=== PATIENT | female | born 1960 | race Caucasian/White ===

== ENCOUNTER 2021-06-17 15:36 | Inpatient (IN) | payer OTHER, MEDICAID, SELFPAY ==
[~2021-06-17] VITALS: Ht 137.2 cm; Wt 59.0 kg
[~2021-06-17 15:36] MED LIST: ASPI-1822 PO; ATOR20TA40 PO; LISI5TAB24 PO; Metoprolol Tartrate PO; NITR2OIN30 TP; ONDA2SOL80 IVP; SYN.1 PO; VITA1CAP PO
[2021-06-17 15:39] VITALS: BP 94/58
[2021-06-17 15:43] VITALS: BP 61/44
[2021-06-17] MEDS ORDERED: NACL 0.9% 1,000 ML IV ONE (16:40)
[2021-06-17 17:54] LABS: HEMATOCRIT 32.8 % (36-48); HEMOGLOBIN 10.7 g/dL (12.0-16.0); MEAN CORPUSCULAR HEMOGLOBIN 33 pg (27-31); MEAN CORPUSCULAR HGB CONC 33 g/dL (33-37); MEAN CORPUSCULAR VOLUME 100.5 fL (80-94); PLATELET COUNT (AUTO) 212 K/uL (140-450); RED BLOOD CELL COUNT(AUTO) 3.27 MIL/uL (4.20-5.40); RED CELL DISTRIBUTION WIDTH 16.5 % (11.6-13.7)
[2021-06-17 17:56] LABS: WHITE BLOOD COUNT (AUTO) 31.6 K/uL (4.8-10.8)
[2021-06-17] MEDS ORDERED: VANCOMYCIN 1,000 MG in DEXTROSE 5% 250 ML IV ONE (18:10)
[2021-06-17] MEDS ORDERED: CEFEPIME 1,000 MG in DEXTROSE 5% 50 ML IV ONE (18:10)
[2021-06-17 18:14] LABS: CARBON DIOXIDE 27.5 mmol/L (21-32); CREATININE 1.8 mg/dL (0.6-1.3); POTASSIUM 4.5 mmol/L (3.5-5.1); TOTAL BILIRUBIN 0.3 mg/dL (0.0-1.0)
--- NOTE | 2021-06-17 18:29 | NUR ---
jessica swabbed and given to ena madsen in lab
[2021-06-17] MEDS ORDERED: CEFEPIME 1,000 MG VIAL ONE (18:30)
[2021-06-17 18:33] LABS: LYMPHOCYTES % (MANUAL) 3 % (20-46); METAMYELOCYTES % 1 % (0-0); MONOCYTES % (MANUAL) 2 % (5-12); PROMYELOCYTES % 1 % (0-0)
--- NOTE | 2021-06-17 18:45 | NUR ---
PT BIB ALS RUN C/O ALOC AND LOW BP FROM [facility]. PT TRACH DEPENDENT, PLACED ON VENT BY RT. IV INSERTED TO RIGHT #20GUAGE FLUIDS INFUSING. PT REMAINS HYPOTENSIVE.
[2021-06-17 19:14] VITALS: BP 100/57
--- NOTE | 2021-06-17 19:23 | NUR ---
patient suctioned- tolerated well. patient on safety measures, attached to monitor and will continue to monitor patient.
[2021-06-17] MEDS ORDERED: VANCOMYCIN 1,000 MG VIAL ONE (19:26)
[2021-06-17] MEDS ORDERED: NACL 0.9% 1,000 ML IV SCH ×2 (21:20)
[2021-06-17] MEDS ORDERED: NOREPINEPHRINE 4 MG/4 ML VIAL IV ONE (21:53)
--- NOTE | 2021-06-17 21:58 | NUR ---
Called facility [facility]-- no answer at this time
--- NOTE | 2021-06-17 22:23 | NUR ---
Called marcel alas the conservator-- no answer at this time
--- NOTE | 2021-06-17 22:24 | NUR ---
called Melba galeano- unable to give consent to sign the central line. has to be 2 RN or 2 MD verfications.
[2021-06-17] MEDS ORDERED: MORPHINE SULFATE 2 MG/ML SYR IVP PRN (22:30)
[2021-06-17] MEDS ORDERED: LORazepam 0.5 MG TAB GT PRN (22:30)
--- NOTE | 2021-06-18 01:26 | NUR ---
Patient appears to be resting comfortably in bed- semi fowlers, eyes closed, and medications running. Vital Signs within normal limits. Respirations even and unlabored. no signs of distress noted. Safety measures are in place, attached to monitor and will continue to monitor patient.
[2021-06-18] MEDS ORDERED: NOREPINEPHRINE 4 MG/4 ML VIAL IV ONE ×6 (03:24→21:23)
[2021-06-18 05:31] VITALS: BP 130/53
--- NOTE | 2021-06-18 07:09 | NUR ---
REPOSITIONED PATIENT, CHANGED DIAPER, AND CHANGED SHEETS. NO WOUNDS PRESENT AT THIS TIME. SOME REDNESS ON THE CHEST NOTED BUT NO OPEN WOUNDS. PATIENT TOLERATED WELL. SAFETY MEASURES IN PLACE, ATTACHED TO THE MONITOR AND WILL CONTINUE TO MONITOR PATIENT.
--- NOTE | 2021-06-18 07:11 | NUR ---
Dr. Epperson at bedside
[2021-06-18] MEDS ORDERED: LORazepam 2 MG/ML VIAL ONE (07:21)
[2021-06-18] MEDS ORDERED: LORazepam 2 MG/ML VIAL IVP ONE (07:25)
--- NOTE | 2021-06-18 07:35 | NUR ---
Pt report given to NAVIN PINO AND YVES PINO. Transfer of care at this time.
--- NOTE | 2021-06-18 07:37 | NUR ---
RECEIVED REPORT FROM LILIANA, ASSISTANT TEACHER PRIMARY OF ARE AT THIS TIME.
[2021-06-18] MEDS ORDERED: PIPERACILLIN/TAZOBACTAM 3.375 GM VIAL IV ONE ×3 (08:04→21:13)
[2021-06-18] MEDS: NOREPINEPHRINE 4 MG in DEXTROSE 5% 250 ML IV PRN (08:10)
--- NOTE | 2021-06-18 08:15 | NUR ---
refer to spreadsheet for patient VS
[2021-06-18] MEDS: PIPERACILLIN/TAZOBACTAM 3.375 GM in DEXTROSE 5% 50 ML IV SCH ×3 (08:28→21:32)
[2021-06-18 09:08] LABS: HEMATOCRIT 31.5 % (36-48); HEMOGLOBIN 10.3 g/dL (12.0-16.0); MEAN CORPUSCULAR HEMOGLOBIN 32 pg (27-31); MEAN CORPUSCULAR HGB CONC 33 g/dL (33-37); MEAN CORPUSCULAR VOLUME 99.1 fL (80-94); PLATELET COUNT (AUTO) 232 K/uL (140-450); RED BLOOD CELL COUNT(AUTO) 3.18 MIL/uL (4.20-5.40); RED CELL DISTRIBUTION WIDTH 16.3 % (11.6-13.7)
[2021-06-18 09:37] LABS: ANION GAP 11.5 (8-16); CARBON DIOXIDE 25.5 mmol/L (21-32)
[2021-06-18 09:52] LABS: WHITE BLOOD COUNT (AUTO) 35.6 K/uL (4.8-10.8)
[2021-06-18 09:53] LABS: LYMPHOCYTES % (MANUAL) 3 % (20-46); MONOCYTES % (MANUAL) 3 % (5-12)
--- NOTE | 2021-06-18 10:04 | NUR ---
RT AT PT BEDSIDE.
--- NOTE | 2021-06-18 12:11 | NUR ---
SPOKE WITH DR. LOMBARDI FOR PT UPDATES.
[2021-06-18] MEDS ORDERED: MAG SULF 2000 MG/WATER PREMIX 50 ML IV PRN (12:20)
[2021-06-18] MEDS ORDERED: ONDANSETRON 4 MG/2 ML VIAL IVP PRN (12:20)
[2021-06-18] MEDS ORDERED: ONDANSETRON 4 MG/2 ML VIAL IM/IVP PRN (12:20)
[2021-06-18] MEDS ORDERED: DOCUSATE SODIUM 100 MG GELCAP PO PRN (12:20)
[2021-06-18] MEDS ORDERED: ZOLPIDEM 5 MG TAB PO PRN (12:20)
[2021-06-18] MEDS ORDERED: HYDROcodone/APAP 5/325 MG 1 TAB TAB PO PRN (12:20)
[2021-06-18] MEDS ORDERED: ACETAMINOPHEN 325 MG TAB PO PRN (12:20)
[2021-06-18] MEDS ORDERED: POTASSIUM CHLORIDE 10 MEQ TABER PO PRN (12:20)
[2021-06-18] MEDS: NACL 0.9% 1,000 ML IV SCH (14:02)
[2021-06-18] MEDS: NITROGLYCERIN 2% 1 GM PKT TP SCH ×2 (14:18→21:33)
--- NOTE | 2021-06-18 15:27 | NUR ---
PATIENT HAS BEEN SCREENED AND CATEGORIZED HIGH NUTRITION RISK. PATIENT WILL BE SEEN WITHIN 1-2 DAYS OF ADMISSION. / [facility] [address]
[2021-06-18 19:36] LABS: CHOL/HDL RATIO 2.3 (1-4.5)
[2021-06-18] MEDS ORDERED: METOPROLOL TARTRATE 12.5 MG PO SCH (21:00)
[2021-06-18] MEDS: METOPROLOL 25 MG TAB PO SCH (21:00)
--- NOTE | 2021-06-18 21:46 | NUR ---
GAVE REPORT TO ALVAREZ GRAJEDA. TRANSFER OF CARE AT THIS TIME.
--- NOTE | 2021-06-18 22:04 | NUR ---
ASSUMED CARE AT THIS TIME.
--- NOTE | 2021-06-18 22:46 | NUR ---
PT SOILED AND PERICARE PROVIDED. PT CLEANED AND LINEN CHANGED.
--- NOTE | 2021-06-19 00:19 | NUR ---
ORAL CARE PROVIDED.
[2021-06-19] MEDS ORDERED: NOREPINEPHRINE 4 MG/4 ML VIAL IV ONE ×3 (01:12→04:48)
[2021-06-19] MEDS: NOREPINEPHRINE 4 MG in DEXTROSE 5% 250 ML IV PRN ×2 (01:25→18:51)
--- NOTE | 2021-06-19 02:28 | NUR ---
see IV spreadsheet for vitals trend
--- NOTE | 2021-06-19 02:28 | NUR ---
gtube dressing soiled. changed at this time.
--- NOTE | 2021-06-19 03:21 | NUR ---
PT SOILED AND PERICARE PROVIDED. PT CLEANED AND BRIEF CHANGED.
[2021-06-19 05:00] VITALS: BP 92/65
[2021-06-19] MEDS ORDERED: PIPERACILLIN/TAZOBACTAM 3.375 GM VIAL IV ONE ×3 (05:00→22:54)
[2021-06-19] MEDS: PIPERACILLIN/TAZOBACTAM 3.375 GM in DEXTROSE 5% 50 ML IV SCH ×3 (05:02→23:32)
[2021-06-19] MEDS: NITROGLYCERIN 2% 1 GM PKT TP SCH ×3 (05:02→23:34)
[2021-06-19] MEDS: NACL 0.9% 1,000 ML IV SCH ×2 (05:03→23:35)
--- NOTE | 2021-06-19 06:05 | NUR ---
Patient repositioned for comfort. Review IV spreadsheet for vitals trend
[2021-06-19] MEDS ORDERED: LEVOTHYROXINE 0.1 MG TAB PO SCH (06:30)
--- NOTE | 2021-06-19 07:24 | NUR ---
REPORT GIVEN TO ALVAREZ HOLDEN. TRANSFER OF CARE
[2021-06-19] MEDS ORDERED: LEVOTHYROXINE 0.05 MG TAB ONE (07:59)
--- NOTE | 2021-06-19 08:00 | NUR ---
ALL MEDICATIONS TO BED CHANGED TO GT AT THIS TIME PER MD LOMBARDI.
[2021-06-19 08:11] VITALS: BP 116/68
[2021-06-19 08:35] LABS: ANION GAP 11.7 (8-16); CARBON DIOXIDE 22.7 mmol/L (21-32); CREATININE 0.8 mg/dL (0.6-1.3); POTASSIUM 3.4 mmol/L (3.5-5.1)
[2021-06-19 08:38] LABS: MAGNESIUM 1.7 mg/dL (1.8-2.4)
[2021-06-19] MEDS ORDERED: lisinopriL 5 MG TAB PO SCH (09:00)
[2021-06-19] MEDS ORDERED: VITAMIN B COMPLEX PO SCH (09:00)
[2021-06-19] MEDS ORDERED: ATORVASTATIN 20 MG TAB PO SCH (09:00)
[2021-06-19] MEDS ORDERED: VIT-B COMP/VIT-C/FOLIC ACID 1 TAB PO SCH (09:00)
[2021-06-19] MEDS ORDERED: ASPIRIN 81 MG TAB.CHEW PO SCH (09:00)
[2021-06-19 09:02] LABS: BASOPHILS # (AUTO) 0.1 K/uL (0.00-0.22); BASOPHILS % (AUTO) 0.3 % (0.0-2.0); EOSINOPHILS % (AUTO) 0.1 % (0.0-4.0); HEMATOCRIT 29.8 % (36-48); HEMOGLOBIN 9.8 g/dL (12.0-16.0); LYMPHOCYTES # (AUTO) 1.2 K/uL (2.5-16.5); LYMPHOCYTES % (AUTO) 4.6 % (20.5-51.1); MEAN CORPUSCULAR HEMOGLOBIN 33 pg (27-31); MEAN CORPUSCULAR HGB CONC 33 g/dL (33-37); MEAN CORPUSCULAR VOLUME 99.5 fL (80-94); MONOCYTES # (AUTO) 1.1 K/uL (0.8-1.0); MONOCYTES % (AUTO) 4.3 % (1.7-9.3); NEUTROPHILS # (AUTO) 22.6 K/uL (1.8-7.7); NEUTROPHILS % (AUTO) 90.7 % (42.2-75.2); PLATELET COUNT (AUTO) 197 K/uL (140-450); RED CELL DISTRIBUTION WIDTH 15.9 % (11.6-13.7)
[2021-06-19] MEDS ORDERED: VANCOMYCIN PER PHARMACY MC PRN (09:05)
--- NOTE | 2021-06-19 10:00 | NUR ---
Meds to be held for GT placement verification. Dr Han made aware that pt's gt is leaking brown liquid at this time and the allegra GT area is redenned at this time. DR Han will come in to assess pt at this time.
[2021-06-19] MEDS: METOPROLOL 25 MG TAB PO SCH (11:48)
[2021-06-19] MEDS ORDERED: MAG SULF 2000 MG/WATER PREMIX 50 ML IV SCH (12:00)
--- NOTE | 2021-06-19 12:30 | NUR ---
Patient appears to be resting comfortably in bed. Vital Signs within normal limits. Respirations even and unlabored. Trach patent to vent at this time.
[2021-06-19] MEDS ORDERED: VANCOMYCIN 1,000 MG VIAL ONE (12:37)
[2021-06-19 12:40] VITALS: BP 116/68
[2021-06-19] MEDS: LEVOFLOXACIN 750 MG/D5W PREMIX 150 ML IV SCH (12:44)
[2021-06-19] MEDS: VANCOMYCIN 750 MG in DEXTROSE 5% 250 ML IV SCH (12:45)
[2021-06-19] MEDS: LORazepam 2 MG/ML VIAL IVP PRN ×2 (13:49→20:25)
--- NOTE | 2021-06-19 14:30 | NUR ---
Pt is resting in bed, trach to vent. Suctioned and with white thin sputum noted at this time allegra care provided with bm on this shift
[2021-06-19] MEDS ORDERED: POTASSIUM PHOSPHATE 15 MM in NACL 0.9% 250 ML IV SCH (15:00)
--- NOTE | 2021-06-19 15:25 | NUR ---
06/19/21 RD INITIAL ASSESSMENT COMPLETED PLEASE REFER TO NUTRITION ASSESSMENT UNDER CARE ACTIVITY FOR ESTIMATED NUTRITIONAL NEEDS. 1. WHEN/IF MEDICALLY APPROPRIATE, RECOMMEND VITAL AF 1.2 WITH A GOAL RATE OF 50 ML/HR -WATER FLUSH: 150 ML Q6H OR PER MD -START AT 10 ML/HR AND INCREASE BY 10 ML Q4H TOLERATED -WILL PROVIDE 1440 KCAL AND 90 GM PROTEIN, MEETING ESTIMATED NUTRITIONAL GOALS 2. MONITOR GI SYMPTOMS 3. RD TO FOLLOW-UP 2-3 DAYS, HIGH RISK WHIT PICKENS RD
--- NOTE | 2021-06-19 16:00 | NUR ---
Patient appears to be resting comfortably in bed. Vital Signs within normal limits. Respirations even and unlabored.
[2021-06-19] MEDS ORDERED: ACETAMINOPHEN 325 MG TAB GT PRN (16:15)
[2021-06-19] MEDS ORDERED: HYDROcodone/APAP 5/325 MG 1 TAB TAB GT PRN (16:15)
[2021-06-19] MEDS ORDERED: ZOLPIDEM 5 MG TAB GT PRN (16:15)
[2021-06-19] MEDS ORDERED: DOCUSATE 100 MG/10 ML UDC GT PRN (16:20)
--- NOTE | 2021-06-19 17:00 | NUR ---
Pt is restless and removing dressings, attempting to remove trach and PICC line. Bilat soft wrist restrqaints placed. Restraints placed with quick-release ties to bed frame. Pt under observation.
--- NOTE | 2021-06-19 19:30 | NUR ---
Pt report given to MARCELA PINO. Transfer of care at this time.
--- NOTE | 2021-06-19 19:30 | NUR ---
RECEIVED PT ON VENT TO TRACH WITH SETTINGS, A/C, V/T 450CC, BUR 14, FiO2 28%, PEEP 5 cm. OCCASIONAL CONGESTED COUGH NOTED. G-TUBE IN PLACE. RIGHT FEMORAL TRIPLE LUMEN IN PLACE. LEVOPHED INFUSING AT 22 MCG/MIN
[2021-06-19] MEDS: METOPROLOL 25 MG TAB GT SCH (20:23)
[2021-06-19 20:39] VITALS: BP 145/91
--- NOTE | 2021-06-19 22:00 | NUR ---
AWAKE AND SLIGHTLY RESTLESS. ATTEMPTING TO PULL ON IV AND G-TUBE. MEDICATED ORDERED. ASSISTED WITH REPOSITIONING
--- NOTE | 2021-06-20 | NUR ---
RESTING QUIETY. LEVOPHED CONTINUES TO INFUSE AT 22 MCG
--- NOTE | 2021-06-20 02:00 | NUR ---
RESTING QUIETLY, ATTACHED TO VENT. PO CARE GIVEN. ASSISTED WITH REPOSITIONING
[2021-06-20] MEDS: LORazepam 2 MG/ML VIAL IVP PRN ×2 (03:46→20:03)
--- NOTE | 2021-06-20 04:00 | NUR ---
AWAKE, RESTLESS, MEDICATED ORDERED
[2021-06-20] MEDS ORDERED: PIPERACILLIN/TAZOBACTAM 3.375 GM VIAL IV ONE ×3 (05:33→21:21)
[2021-06-20] MEDS: PIPERACILLIN/TAZOBACTAM 3.375 GM in DEXTROSE 5% 50 ML IV SCH ×3 (05:43→21:24)
--- NOTE | 2021-06-20 06:00 | NUR ---
RESTING COMFORTABLY, ASSISTED WITH REPOSITIONING. PO CARE GIVEN
--- NOTE | 2021-06-20 07:30 | NUR ---
REPORT RECEIVED FROM MARCELA PINO FOR CONTINUITY OF CARE. PT IS A&OX0. OPENS EYES, WITHDRAWS TO PAIN. TRACH TO VENT, FIO2 28%, TV 450, RATE 14, PEEP 5. IV SITE R FEMORAL CENTRAL LINE, TLC, INFUSING LEVOPED 22MCG/MIN. GTUBE IN PLACE. SKIN INTACT, WARM AND DRY. WILL CONTINUE TO MONITOR.
[2021-06-20] MEDS: NOREPINEPHRINE 4 MG in DEXTROSE 5% 250 ML IV PRN (07:45)
[2021-06-20] MEDS: ASPIRIN 81 MG TAB.CHEW GT SCH (08:25)
[2021-06-20] MEDS: ATORVASTATIN 20 MG TAB GT SCH (08:26)
[2021-06-20] MEDS: lisinopriL 5 MG TAB GT SCH (08:26)
[2021-06-20] MEDS: VIT-B COMP/VIT-C/FOLIC ACID 1 TAB GT SCH (08:26)
[2021-06-20] MEDS: METOPROLOL 25 MG TAB GT SCH ×2 (08:27→21:23)
[2021-06-20] MEDS ORDERED: CRUSHER, PILL MC ONE (08:34)
[2021-06-20 08:44] LABS: ANION GAP 12.3 (8-16); CARBON DIOXIDE 23.2 mmol/L (21-32); CREATININE 0.8 mg/dL (0.6-1.3); POTASSIUM 3.5 mmol/L (3.5-5.1)
[2021-06-20 08:49] LABS: MAGNESIUM 1.7 mg/dL (1.8-2.4); PHOSPHORUS 2.8 mg/dL (2.5-4.9)
[2021-06-20] MEDS: NITROGLYCERIN 2% 1 GM PKT TP SCH ×3 (08:53→21:27)
[2021-06-20] MEDS: LEVOTHYROXINE 0.1 MG TAB GT SCH (08:53)
--- NOTE | 2021-06-20 09:00 | NUR ---
Patient trach to vent. Vital Signs within normal limits. Respirations even and unlabored. Chest rise is symmetrical. Will continue to monitor.
[2021-06-20] MEDS: LEVOFLOXACIN 750 MG/D5W PREMIX 150 ML IV SCH (09:52)
[2021-06-20 10:34] LABS: BASOPHILS # (AUTO) 0.1 K/uL (0.00-0.22); HEMOGLOBIN 9.3 g/dL (12.0-16.0); MONOCYTES # (AUTO) 0.5 K/uL (0.8-1.0); NEUTROPHILS % (AUTO) 79.3 % (42.2-75.2)
[2021-06-20 10:41] LABS: BASOPHILS % (AUTO) 0.7 % (0.0-2.0); EOSINOPHILS # (AUTO) 1.4 K/uL (0-0.4); EOSINOPHILS % (AUTO) 9.9 % (0.0-4.0); HEMATOCRIT 27.2 % (36-48); LYMPHOCYTES # (AUTO) 0.9 K/uL (2.5-16.5); LYMPHOCYTES % (AUTO) 6.3 % (20.5-51.1); MEAN CORPUSCULAR HEMOGLOBIN 34 pg (27-31); MEAN CORPUSCULAR HGB CONC 34 g/dL (33-37); MEAN CORPUSCULAR VOLUME 100.3 fL (80-94); MONOCYTES % (AUTO) 3.8 % (1.7-9.3); NEUTROPHILS # (AUTO) 10.9 K/uL (1.8-7.7); PLATELET COUNT (AUTO) 291 K/uL (140-450); RED BLOOD CELL COUNT(AUTO) 2.71 MIL/uL (4.20-5.40); RED CELL DISTRIBUTION WIDTH 16.5 % (11.6-13.7); WHITE BLOOD COUNT (AUTO) 13.8 K/uL (4.8-10.8)
[2021-06-20] MEDS: VANCOMYCIN 750 MG in DEXTROSE 5% 250 ML IV SCH (11:26)
[2021-06-20] MEDS: NOREPINEPHRINE 8 MG in DEXTROSE 5% 250 ML IV PRN (12:30)
--- NOTE | 2021-06-20 12:30 | NUR ---
Patient trach to vent. Vital Signs within normal limits. Respirations even and unlabored. Chest rise is symmetrical. Will continue to monitor.
[2021-06-20] MEDS: NACL 0.9% 1,000 ML IV SCH (14:20)
--- NOTE | 2021-06-20 14:20 | NUR ---
Patient trach to vent. Vital Signs within normal limits. Respirations even and unlabored. Chest rise is symmetrical. Will continue to monitor.
--- NOTE | 2021-06-20 18:32 | NUR ---
PT HAD 1 BOWEL MOVEMENT, PT CLEANED
[2021-06-20 19:00] VITALS: BP 102/73
--- NOTE | 2021-06-20 19:24 | NUR ---
Pt report given to MARCELA PINO. Transfer of care at this time.
--- NOTE | 2021-06-20 20:00 | NUR ---
RESTING IN BED, ATTACHED TO VENT. ASSISTED WITH REPOSITIONING
--- NOTE | 2021-06-20 21:30 | NUR ---
ASSISTED WITH REPOSITIONING. ORAL CARE GIVEN
[2021-06-20 23:31] VITALS: BP 138/81
--- NOTE | 2021-06-21 02:00 | NUR ---
REPOSITIONED, PO CARE GIVEN. LEVOPHED CONTINUES AT 20 MCG
[2021-06-21 03:24] VITALS: BP 142/77
[2021-06-21] MEDS ORDERED: PIPERACILLIN/TAZOBACTAM 3.375 GM VIAL IV ONE ×3 (05:32→21:50)
--- NOTE | 2021-06-21 05:45 | NUR ---
AWAKE, G-TUBE SITE DRAINING BROWN COLORED DRAINAGE. FACIAL GRIMACING NOTED WHEN BEING CLEANSED. MEDICATED FOR PAIN ORDERED. LINENS CHANGED. DRESSING APPLIED AT G-TUBE SITE. POSITIONED FOR COMFORT
[2021-06-21] MEDS: PIPERACILLIN/TAZOBACTAM 3.375 GM in DEXTROSE 5% 50 ML IV SCH ×3 (06:10→22:16)
[2021-06-21] MEDS: NITROGLYCERIN 2% 1 GM PKT TP SCH ×3 (06:11→22:19)
[2021-06-21] MEDS: LEVOTHYROXINE 0.1 MG TAB GT SCH (06:12)
[2021-06-21] MEDS: MORPHINE SULFATE 4 MG/ML SYR IVP PRN (06:14)
--- NOTE | 2021-06-21 07:30 | NUR ---
REPORT RECEIVED FROM MARCELA PINO FOR CONTINUITY OF CARE. PT TRACH TO VENT, NON VERBAL OPENS EYES, WITHDRAWS TO PAIN. VENT SETTINGS AC/VC MODE FIO2 25%, TV 450, RATE 14, PEEP 5. SB ON MONITOR. R FEMORAL CENTRAL LINE, TLC INFUSING LEVOPHED 20 MCG/MIN, NS 60ML/HR. GTUBE IN PLACE. REDNESS TO GTUBE SITE NOTED. HOB 30 DEGREES. BED LOCKED IN LOWEST POSITION. SAFETY PRECAUTIONS IN PLACE. WILL CONTINUE TO MONITOR.
[2021-06-21] MEDS: NACL 0.9% 1,000 ML IV SCH (07:31)
[2021-06-21 07:59] LABS: BASOPHILS # (AUTO) 0.1 K/uL (0.00-0.22); BASOPHILS % (AUTO) 0.8 % (0.0-2.0); EOSINOPHILS # (AUTO) 0.1 K/uL (0-0.4); EOSINOPHILS % (AUTO) 0.8 % (0.0-4.0); HEMATOCRIT 28.1 % (36-48); HEMOGLOBIN 9.6 g/dL (12.0-16.0); LYMPHOCYTES # (AUTO) 1.3 K/uL (2.5-16.5); LYMPHOCYTES % (AUTO) 17.7 % (20.5-51.1); MEAN CORPUSCULAR HEMOGLOBIN 33 pg (27-31); MEAN CORPUSCULAR HGB CONC 34 g/dL (33-37); MEAN CORPUSCULAR VOLUME 98.2 fL (80-94); MONOCYTES # (AUTO) 0.8 K/uL (0.8-1.0); MONOCYTES % (AUTO) 10.5 % (1.7-9.3); NEUTROPHILS # (AUTO) 5.3 K/uL (1.8-7.7); NEUTROPHILS % (AUTO) 70.2 % (42.2-75.2); PLATELET COUNT (AUTO) 173 K/uL (140-450); RED BLOOD CELL COUNT(AUTO) 2.87 MIL/uL (4.20-5.40); RED CELL DISTRIBUTION WIDTH 15.5 % (11.6-13.7); WHITE BLOOD COUNT (AUTO) 7.5 K/uL (4.8-10.8)
--- NOTE | 2021-06-21 08:00 | NUR ---
RT AT BEDSIDE
[2021-06-21] MEDS ORDERED: CRUSHER, PILL MC ONE (08:12)
[2021-06-21] MEDS: VIT-B COMP/VIT-C/FOLIC ACID 1 TAB GT SCH (08:29)
[2021-06-21] MEDS: ASPIRIN 81 MG TAB.CHEW GT SCH (08:29)
[2021-06-21] MEDS: ATORVASTATIN 20 MG TAB GT SCH (08:29)
[2021-06-21] MEDS: lisinopriL 5 MG TAB GT SCH (08:29)
[2021-06-21] MEDS: METOPROLOL 25 MG TAB GT SCH ×2 (08:29→22:13)
[2021-06-21 08:38] LABS: ANION GAP 13.5 (8-16); CARBON DIOXIDE 23.4 mmol/L (21-32); CREATININE 0.8 mg/dL (0.6-1.3)
[2021-06-21 08:42] LABS: MAGNESIUM 1.5 mg/dL (1.8-2.4); PHOSPHORUS 2.6 mg/dL (2.5-4.9)
[2021-06-21 08:45] VITALS: BP 135/78
[2021-06-21] MEDS ORDERED: DEXT 5% /NACL 0.9% 1,000 ML IV SCH (08:50)
[2021-06-21 08:52] LABS: POTASSIUM 2.9 mmol/L (3.5-5.1)
[2021-06-21] MEDS ORDERED: TPN PER PHARMACY MC PRN (09:10)
[2021-06-21] MEDS: POTASSIUM CHLORIDE 20% 40 MEQ/15 ML UDC GT PRN (09:12)
[2021-06-21] MEDS: LEVOFLOXACIN 750 MG/D5W PREMIX 150 ML IV SCH (09:43)
--- NOTE | 2021-06-21 10:00 | NUR ---
ORAL CARE PROVIDED, PT REPOSITIONED.
[2021-06-21] MEDS: BLOOD GLUCOSE MONITORING 1 DEV DEV MC SCH ×2 (11:31→18:00)
--- NOTE | 2021-06-21 12:47 | NUR ---
DR DUEÑAS AT BEDSIDE EXAMINING PT
--- NOTE | 2021-06-21 13:10 | NUR ---
PT TAKEN TO CT SCAN VIA GURLU[facility], ACCOMPANIED BY RN, RT, ROLLER LEVELER
--- NOTE | 2021-06-21 13:15 | NUR ---
PATIENT TAKEN TO CT SCANNER ON VENT - NO DISTRESS NOTED - PT TOLERATED TRANSPORT TO AND FROM CT SCAN.
--- NOTE | 2021-06-21 13:28 | NUR ---
PT RETURNED FROM CT
--- NOTE | 2021-06-21 13:30 | NUR ---
TRANSFERRED PT TO CT. PT TOLERATED THE TRANSFER TO AND FROM CT WELL.
[2021-06-21] MEDS: VANCOMYCIN 750 MG in DEXTROSE 5% 250 ML IV SCH (14:30)
[2021-06-21] MEDS: NOREPINEPHRINE 8 MG in DEXTROSE 5% 250 ML IV PRN (15:30)
--- NOTE | 2021-06-21 15:36 | NUR ---
ORAL CARE PROVIDED, PT REPOSITIONED.
[2021-06-21 16:27] VITALS: BP 138/78
--- NOTE | 2021-06-21 17:36 | NUR ---
PT TRACH TO VENT. HAS EYES OPENS, RESPIRATIONS EVEN AND UNLABORED. CHEST RISE IS SYMMETRICAL. WILL CONTINUE TO MONITOR.
[2021-06-21 19:16] VITALS: BP 124/91
--- NOTE | 2021-06-21 19:18 | NUR ---
PT CLEANED, DIAPER CHANGED, GTUBE DRESSING CHANGED.
--- NOTE | 2021-06-21 19:28 | NUR ---
Pt report given to MARCELA PINO. Transfer of care at this time.
--- NOTE | 2021-06-21 20:00 | NUR ---
Brigitte zamora in [facility] - 06/21/21 at 2224 by BHARATI RESTING QUIETLY. RESPIRATIONS ARE REGULAR AND UNLABORED
--- NOTE | 2021-06-21 20:00 | NUR ---
RECEIVED AWAKE ON VENT TO TRACH. CM = SR WITHOUT ECTOPY
[2021-06-21] MEDS: AMINO ACIDS 8.5% IV SCH ×3 (20:12)
[2021-06-21] MEDS: DEXTROSE 50% IV SCH ×3 (20:12)
[2021-06-21] MEDS: FAT EMULSION 20% IV SCH ×3 (20:12)
[2021-06-21] MEDS ORDERED: NOREPINEPHRINE 4 MG/4 ML VIAL IV ONE (23:45)
[2021-06-22 01:07] VITALS: BP 125/74
[2021-06-22] MEDS: VANCOMYCIN 750 MG in DEXTROSE 5% 250 ML IV SCH ×2 (03:01→15:51)
[2021-06-22 04:30] VITALS: BP 120/100
[2021-06-22] MEDS ORDERED: PIPERACILLIN/TAZOBACTAM 3.375 GM VIAL IV ONE ×2 (05:06→13:35)
[2021-06-22] MEDS: MORPHINE SULFATE 4 MG/ML SYR IVP PRN (05:12)
[2021-06-22] MEDS: PIPERACILLIN/TAZOBACTAM 3.375 GM in DEXTROSE 5% 50 ML IV SCH ×2 (05:15→13:57)
[2021-06-22] MEDS: NITROGLYCERIN 2% 1 GM PKT TP SCH ×3 (05:15→21:00)
[2021-06-22] MEDS: BLOOD GLUCOSE MONITORING 1 DEV DEV MC SCH ×4 (07:00→18:18)
--- NOTE | 2021-06-22 08:05 | NUR ---
Pt is awake and non-verbal responsive to external stimuli. Trach to vent patent and intact at this time. Resp even and unlabored. No SOB/resp distress at this time. GT patent and intact. Abd is soft and non-tender with + BS x4. Pt is incont x2, provided with pericare and urine appears yellow, no foul smell at this time. PICC to Right femoral intact. Oral care provided. Pt suctioned with thin clear/white secretions obtained at this time. SR up for safety and HOB up 30 degrees. Aspiration precautions in place. Call light in reach.
[2021-06-22] MEDS: LEVOTHYROXINE 0.1 MG TAB GT SCH (09:28)
[2021-06-22] MEDS: ATORVASTATIN 20 MG TAB GT SCH (09:29)
[2021-06-22] MEDS: ASPIRIN 81 MG TAB.CHEW GT SCH (09:29)
[2021-06-22] MEDS: lisinopriL 5 MG TAB GT SCH (09:30)
[2021-06-22] MEDS: METOPROLOL 25 MG TAB GT SCH ×2 (09:30→21:00)
[2021-06-22] MEDS: VIT-B COMP/VIT-C/FOLIC ACID 1 TAB GT SCH (09:30)
--- NOTE | 2021-06-22 10:05 | NUR ---
Pt repositioned q 2hr with HOB elevated at this time. Pt is asleep and resting comfortably in rney at this time.
--- NOTE | 2021-06-22 10:56 | NUR ---
Lab results are not pending or running at this time. Called Lab and they will start running this blood now.
[2021-06-22 11:20] LABS: ANION GAP 11.3 (8-16); BASOPHILS # (AUTO) 0.1 K/uL (0.00-0.22); CREATININE 0.7 mg/dL (0.6-1.3); EOSINOPHILS # (AUTO) 0.1 K/uL (0-0.4); EOSINOPHILS % (AUTO) 1.6 % (0.0-4.0); HEMATOCRIT 27.7 % (36-48); HEMOGLOBIN 9.4 g/dL (12.0-16.0); LYMPHOCYTES # (AUTO) 1.7 K/uL (2.5-16.5); LYMPHOCYTES % (AUTO) 24.2 % (20.5-51.1); MEAN CORPUSCULAR HEMOGLOBIN 33 pg (27-31); MEAN CORPUSCULAR HGB CONC 34 g/dL (33-37); MEAN CORPUSCULAR VOLUME 98.8 fL (80-94); MONOCYTES # (AUTO) 0.7 K/uL (0.8-1.0); MONOCYTES % (AUTO) 10.3 % (1.7-9.3); NEUTROPHILS # (AUTO) 4.5 K/uL (1.8-7.7); NEUTROPHILS % (AUTO) 62.9 % (42.2-75.2); PLATELET COUNT (AUTO) 163 K/uL (140-450); POTASSIUM 3.3 mmol/L (3.5-5.1); RED CELL DISTRIBUTION WIDTH 16.1 % (11.6-13.7); WHITE BLOOD COUNT (AUTO) 7.2 K/uL (4.8-10.8)
[2021-06-22 11:24] LABS: MAGNESIUM 1.7 mg/dL (1.8-2.4); PHOSPHORUS 2.9 mg/dL (2.5-4.9)
--- NOTE | 2021-06-22 11:41 | NUR ---
Spoke to Leo from lab for BMP results. They should be in the computer in 10 minutes.
--- NOTE | 2021-06-22 12:05 | NUR ---
Pt repositioned with pillows for comfort. Incontinent care provided at this time.
[2021-06-22 12:06] VITALS: BP 120/85
[2021-06-22] MEDS ORDERED: NOREPINEPHRINE 4 MG/4 ML VIAL IV ONE (13:19)
[2021-06-22] MEDS: NOREPINEPHRINE 8 MG in DEXTROSE 5% 250 ML IV PRN (13:29)
[2021-06-22] MEDS: POTASSIUM CHLORIDE 20% 40 MEQ/15 ML UDC GT PRN (13:59)
--- NOTE | 2021-06-22 14:05 | NUR ---
Pt is awake and non-verbal responsive to external stimuli. Trach to vent patent and intact at this time. Resp even and unlabored. No SOB/resp distress at this time. GT patent and intact. Abd is soft and non-tender with + BS x4. Pt is incont x2, provided with pericare. Repositioned with pillows at this time.
--- NOTE | 2021-06-22 15:31 | NUR ---
06/22/21 RD FOLLOW UP COMPLETED PLEASE REFER TO NUTRITION PROGRESS NOTE UNDER CARE ACTIVITY FOR ESTIMATED NUTRITION NEEDS. RD RECOMMENDATIONS: 1.CONTINUE CURRENT TPN REGIME MEDICALLY APPROPRIATE AND PER MD 2.WHEN/IF MEDICALLY APPROPRIATE, RECOMMEND VITAL AF 1.2 WITH A GOAL RATE OF 50 ML/HR -WATER FLUSH: 150 ML Q6H OR PER MD -START AT 10 ML/HR AND INCREASE BY 10 ML Q4H TOLERATED -WILL PROVIDE 1440 KCAL AND 90 GM PROTEIN, MEETING ESTIMATED NUTRITIONAL GOALS 3. MONITOR GI SYMPTOMS 4. RD TO FOLLOW-UP 2-3 DAYS, HIGH RISK ANDREZ ESPITIA, RD
[2021-06-22] MEDS ORDERED: VANCOMYCIN 1,000 MG VIAL ONE (15:40)
--- NOTE | 2021-06-22 16:05 | NUR ---
Pt was repositioned for comfort. Suctioned with thin white secretions obtained. VSS
[2021-06-22] MEDS: NEOMYCIN/POLYMYXIN/BACITRACIN OIN 15 GM TUBE TP SCH (17:01)
--- NOTE | 2021-06-22 18:04 | NUR ---
Pt is asleep and resting comfortably in bed. Non-verbal responsive to external stimuli. Trach to vent patent and intact at this time. Resp even and unlabored. No SOB/resp distress at this time. GT patent and intact. Pt is incont x2, provided with pericare and urine appears yellow, no foul smell at this time. Oral care provided. Pt suctioned with thin clear/white secretions obtained at this time. SR up for safety and HOB up 30 degrees. Aspiration precautions in place. Call light in reach. Wound care performed on GT Periarea. Area is improving with reduced redness and leaking.
[2021-06-22] MEDS: DEXTROSE 50% IV SCH ×3 (20:00)
[2021-06-22] MEDS: FAT EMULSION 20% IV SCH ×3 (20:00)
[2021-06-22] MEDS: AMINO ACIDS 8.5% IV SCH ×3 (20:00)
[2021-06-22 20:19] VITALS: BP 117/86
--- NOTE | 2021-06-22 22:19 | NUR ---
Pt report given to ALVAREZ Moore. Transfer of care at this time.
[2021-06-23] MEDS: BLOOD GLUCOSE MONITORING 1 DEV DEV MC SCH ×4 (00:21→18:43)
[2021-06-23] MEDS: LORazepam 2 MG/ML VIAL IVP PRN ×2 (00:26→10:11)
[2021-06-23] MEDS: LEVOFLOXACIN 750 MG/D5W PREMIX 150 ML IV SCH (00:27)
--- NOTE | 2021-06-23 02:01 | NUR ---
REPOSITIONED TO THE RIGHT SIDE, CHANGED DIAPER, AND APPLIED SALOMÓN PADS. PATIENT TOLERATED WELL. WOUND DRESSING CHANGED ON THE GTUBE SITE-- REDNESS, SECRETIONS COMING OUT, AND BLACK COLOR COMING OUT WELL. SAFETY MEASURES IN PLACE, ATTACHED TO THE MONITOR AND WILL CONTINUE TO MONITOR PATIENT.
[2021-06-23] MEDS: MORPHINE SULFATE 4 MG/ML SYR IVP PRN ×2 (02:34→13:07)
[2021-06-23 04:10] VITALS: BP 143/57
--- NOTE | 2021-06-23 04:27 | NUR ---
patient repositioned to left side-- patient tolerated well.
[2021-06-23] MEDS: NITROGLYCERIN 2% 1 GM PKT TP SCH ×4 (05:00→22:48)
[2021-06-23] MEDS: LEVOTHYROXINE 0.1 MG TAB GT SCH (06:17)
--- NOTE | 2021-06-23 07:27 | NUR ---
Pt report given to Catrachita PINO. Transfer of care at this time.
[2021-06-23 08:31] VITALS: BP 143/76
[2021-06-23] MEDS: NOREPINEPHRINE 8 MG in DEXTROSE 5% 250 ML IV PRN (08:33)
[2021-06-23] MEDS: SULFAMETH/TRIMETH DS 800/160MG 1 TAB GT SCH ×2 (08:34→22:38)
[2021-06-23] MEDS: ASPIRIN 81 MG TAB.CHEW GT SCH (08:34)
[2021-06-23] MEDS: VIT-B COMP/VIT-C/FOLIC ACID 1 TAB GT SCH (08:35)
[2021-06-23] MEDS: ATORVASTATIN 20 MG TAB GT SCH (08:35)
[2021-06-23] MEDS: NEOMYCIN/POLYMYXIN/BACITRACIN OIN 15 GM TUBE TP SCH (08:36)
[2021-06-23] MEDS: lisinopriL 5 MG TAB GT SCH (08:37)
[2021-06-23] MEDS: METOPROLOL 25 MG TAB GT SCH ×2 (08:38→22:38)
[2021-06-23 09:22] LABS: BASOPHILS % (AUTO) 0.9 % (0.0-2.0); EOSINOPHILS # (AUTO) 0.1 K/uL (0-0.4); EOSINOPHILS % (AUTO) 2.7 % (0.0-4.0); HEMATOCRIT 24.3 % (36-48); HEMOGLOBIN 8.3 g/dL (12.0-16.0); LYMPHOCYTES # (AUTO) 1.2 K/uL (2.5-16.5); LYMPHOCYTES % (AUTO) 23.1 % (20.5-51.1); MEAN CORPUSCULAR HEMOGLOBIN 34 pg (27-31); MEAN CORPUSCULAR HGB CONC 34 g/dL (33-37); MEAN CORPUSCULAR VOLUME 98.7 fL (80-94); MONOCYTES # (AUTO) 0.7 K/uL (0.8-1.0); MONOCYTES % (AUTO) 12.9 % (1.7-9.3); NEUTROPHILS # (AUTO) 3.1 K/uL (1.8-7.7); NEUTROPHILS % (AUTO) 60.4 % (42.2-75.2); PLATELET COUNT (AUTO) 126 K/uL (140-450); RED BLOOD CELL COUNT(AUTO) 2.46 MIL/uL (4.20-5.40); RED CELL DISTRIBUTION WIDTH 15.9 % (11.6-13.7); WHITE BLOOD COUNT (AUTO) 5.1 K/uL (4.8-10.8)
[2021-06-23 09:40] LABS: PHOSPHORUS 2.6 mg/dL (2.5-4.9)
[2021-06-23 10:15] LABS: ANION GAP 8.7 (8-16); CREATININE 0.6 mg/dL (0.6-1.3)
[2021-06-23 10:19] LABS: POTASSIUM 2.7 mmol/L (3.5-5.1)
--- NOTE | 2021-06-23 10:20 | NUR ---
Repostioned q2hr for comfort. Trach to vent patent and intact at this time. Resp even and unlabored. No SOB/resp distress at this time. GT patent and intact. Abd is soft and non-tender with + BS x4. Pt is incont x2, provided with pericare.
[2021-06-23] MEDS ORDERED: KCL 20 MEQ/WATER INJ PREMIX 100 ML IV SCH (11:00)
[2021-06-23 11:40] VITALS: BP 143/63
--- NOTE | 2021-06-23 12:10 | NUR ---
Asleep and resting comfortably in bed. Trach to vent patent and intact at this time. Resp even and unlabored. No SOB/resp distress at this time. GT patent and intact. Abd is soft and non-tender with + BS x4. Pt is incont x2. Repositioned with pillows at this time.
--- NOTE | 2021-06-23 14:20 | NUR ---
VSS. Pt is resting in bed. Repositioned for comfort. Suctioned with thin white secretions obtained. GT wound care done.
--- NOTE | 2021-06-23 16:10 | NUR ---
Patient appears to be resting comfortably in bed. Vital Signs within normal limits. Respirations even and unlabored.
[2021-06-23 17:08] VITALS: BP 82/61
--- NOTE | 2021-06-23 18:20 | NUR ---
Pt is asleep and resting in bed. No SOB/resp distress at this time. GT patent and intact. Abd is soft and non-tender with + BS x4. Repositioned with pillows at this time. Safety measures in place.
--- NOTE | 2021-06-23 19:33 | NUR ---
Pt report given to ALVAREZ Muniz. Transfer of care at this time.
[2021-06-23 21:00] VITALS: BP 113/65
[2021-06-23] MEDS: AMINO ACIDS 8.5% IV SCH ×3 (22:04)
[2021-06-23] MEDS: FAT EMULSION 20% IV SCH ×3 (22:04)
[2021-06-23] MEDS: DEXTROSE 50% IV SCH ×3 (22:04)
[2021-06-24] MEDS: LEVOFLOXACIN 750 MG/D5W PREMIX 150 ML IV SCH (00:29)
[2021-06-24] MEDS: BLOOD GLUCOSE MONITORING 1 DEV DEV MC SCH ×4 (00:34→18:33)
--- NOTE | 2021-06-24 01:01 | NUR ---
TITRATED NOREPI DOWN TO 12 AT THIS TIME. PT SBP 161.
--- NOTE | 2021-06-24 01:16 | NUR ---
REPOSITIONED PT IN BED ONTO HER LEFT SIDE. PROVIDED ORAL CARE AND LIP BALM. PT HOB AT 30 DEGREES. PT DIAPER CLEAN AT THIS TIME. PT TOLERATED PROCEDURE WELL.
[2021-06-24 02:21] VITALS: BP 92/66
[2021-06-24] MEDS: NITROGLYCERIN 2% 1 GM PKT TP SCH ×3 (05:45→22:09)
--- NOTE | 2021-06-24 06:15 | NUR ---
PT'S ABDOMINAL WOUND CLEANED AND REDRESSED. PT TOLERATED PROCEDURE WELL.
--- NOTE | 2021-06-24 06:30 | NUR ---
# 15 FR STRAIGHT catheter utilizing sterile technique. Immediate return of 200 ml OF CLOUDY YELLOW urine noted. Urine sample collected and sent to lab. Pt tolerated procedure WELL.
[2021-06-24] MEDS: MORPHINE SULFATE 4 MG/ML SYR IVP PRN (06:43)
[2021-06-24 07:06] LABS: APPEARANCE,URINE CLOUDY (CLEAR); BILIRUBIN,URINE NEGATIVE (NEGATIVE); BLOOD, URINE 3+ (NEGATIVE); COLOR,URINE YELLOW (YELLOW); LEUKOCYTE ESTERASE ,URINE 3+ (NEGATIVE); NITRITE, URINE NEGATIVE (NEGATIVE); PH,URINE 8.5 (5.0-9.0); UGLUCOSE NEGATIVE (NEGATIVE)
[2021-06-24 07:17] LABS: BARBITURATE, URINE NEGATIVE ng/ml (NEG <=200); BENZODIAZEPINE, URINE POSITIVE ng/mL (NEG <=200); CANNABINOID, URINE NEGATIVE ng/mL (NEG <=50); COCAINE, URINE NEGATIVE ng/mL (NEG <=300); OPIATE, URINE POSITIVE ng/mL (NEG <=2000); PHENCYCLIDINE SCREEN,URINE NEGATIVE ng/mL (NEG <=25)
[2021-06-24] MEDS: LEVOTHYROXINE 0.1 MG TAB GT SCH (07:24)
--- NOTE | 2021-06-24 07:33 | NUR ---
TRANSFER OF CARE REPORT GIVEN TO SAGAR PINO
[2021-06-24] MEDS ORDERED: NOREPINEPHRINE 4 MG/4 ML VIAL IV ONE (07:41)
[2021-06-24 08:09] LABS: ANION GAP 13.2 (8-16); CARBON DIOXIDE 27.5 mmol/L (21-32); CREATININE 0.6 mg/dL (0.6-1.3); POTASSIUM 3.7 mmol/L (3.5-5.1)
[2021-06-24 08:18] VITALS: BP 81/30
--- NOTE | 2021-06-24 08:18 | NUR ---
RECEIVED ON A VOCSN VENTILATOR PLUGGED INTO RED OUTLET TOLERATING WELL WITHOUT ADVERSE REACTIONS NOTED TO A PORTEX DCT #7 AIRWAY SECURED WITH A JARVIS TRACH TIE CUFF PRESSURE CHECKED A NOTED STABLE NO DISTRESS NOTED GOOD CHEST RISE
[2021-06-24 08:21] LABS: RBC,URINE 11-20 (MOD) /HPF (0-5); WBC,URINE >25 (MANY) /HPF (0-5)
[2021-06-24 08:22] LABS: URINE AMORPHOUS URATE 1+ /HPF (None Seen)
[2021-06-24 08:24] LABS: MAGNESIUM 2.1 mg/dL (1.8-2.4); PHOSPHORUS 3.1 mg/dL (2.5-4.9)
[2021-06-24 10:54] VITALS: BP 98/51
[2021-06-24] MEDS: ASPIRIN 81 MG TAB.CHEW GT SCH (11:42)
[2021-06-24] MEDS: lisinopriL 5 MG TAB GT SCH (11:43)
[2021-06-24] MEDS: VIT-B COMP/VIT-C/FOLIC ACID 1 TAB GT SCH (11:43)
[2021-06-24] MEDS: ATORVASTATIN 20 MG TAB GT SCH (11:43)
[2021-06-24] MEDS: METOPROLOL 25 MG TAB GT SCH ×2 (11:43→22:10)
[2021-06-24] MEDS: SULFAMETH/TRIMETH DS 800/160MG 1 TAB GT SCH ×2 (11:43→22:10)
[2021-06-24] MEDS: NEOMYCIN/POLYMYXIN/BACITRACIN OIN 15 GM TUBE TP SCH (12:02)
[2021-06-24 14:23] LABS: BASOPHILS # (AUTO) 0.1 K/uL (0.00-0.22); BASOPHILS % (AUTO) 1.2 % (0.0-2.0); EOSINOPHILS # (AUTO) 0.2 K/uL (0-0.4); HEMATOCRIT 26.3 % (36-48); HEMOGLOBIN 8.8 g/dL (12.0-16.0); LYMPHOCYTES # (AUTO) 1.2 K/uL (2.5-16.5); LYMPHOCYTES % (AUTO) 21.8 % (20.5-51.1); MEAN CORPUSCULAR HEMOGLOBIN 33 pg (27-31); MEAN CORPUSCULAR HGB CONC 33 g/dL (33-37); MEAN CORPUSCULAR VOLUME 99.5 fL (80-94); MONOCYTES # (AUTO) 0.5 K/uL (0.8-1.0); NEUTROPHILS # (AUTO) 3.7 K/uL (1.8-7.7); PLATELET COUNT (AUTO) 130 K/uL (140-450); RED BLOOD CELL COUNT(AUTO) 2.64 MIL/uL (4.20-5.40); RED CELL DISTRIBUTION WIDTH 16.1 % (11.6-13.7); WHITE BLOOD COUNT (AUTO) 5.7 K/uL (4.8-10.8)
--- NOTE | 2021-06-24 14:25 | NUR ---
spoke with md millie md states to hold nitrobid at this time due to bp control with levophed. returned to [facility] at this time
--- NOTE | 2021-06-24 19:38 | NUR ---
Pt report given to kamla loredo. Transfer of care at this time.
[2021-06-24 19:42] VITALS: BP 105/67
--- NOTE | 2021-06-24 22:15 | NUR ---
REPOSITIONED PT IN BED AND PROVIDED ORAL CARE.
[2021-06-24] MEDS: DEXTROSE 50% IV SCH ×6 (22:23→22:25)
[2021-06-24] MEDS: FAT EMULSION 20% IV SCH ×6 (22:23→22:25)
[2021-06-24] MEDS: AMINO ACIDS 8.5% IV SCH ×6 (22:23→22:25)
--- NOTE | 2021-06-24 23:07 | NUR ---
2245 CHECKED PT ON VENT. SXNED PT. NO SOB NOTED
[2021-06-25] MEDS ORDERED: NOREPINEPHRINE 4 MG/4 ML VIAL IV ONE (00:09)
[2021-06-25] MEDS: LEVOFLOXACIN 750 MG/D5W PREMIX 150 ML IV SCH (00:27)
[2021-06-25] MEDS: BLOOD GLUCOSE MONITORING 1 DEV DEV MC SCH ×4 (00:39→18:33)
[2021-06-25 01:16] VITALS: BP 119/71
--- NOTE | 2021-06-25 01:25 | NUR ---
RT AT BEDSIDE, PT SUCTIONED AND TRACH REPOSITIONED AND CUFF RECHECKED. PT WAS SAT UP HIGHER IN BED TO MAINTAIN HOB ABOVE 30 DEGREES. O2-SAT MAINTAINED ABOVE 95%; BILATERAL CHEST RISE AND FALL WITH ADEQUATE TIDAL VOUME. PT APPEARS TO BE IN NO DISTRESS AT THIS TIME.
--- NOTE | 2021-06-25 01:28 | NUR ---
CALLED TO BEDSIDE FOR HIGH PIP AND INCR RR +HR PT REPOSITIONED AND TRACH RE-ADJUSTED AND ISSUE HAS BEEN RESOLVED
--- NOTE | 2021-06-25 02:30 | NUR ---
PT'S ABDOMINAL WOUND CLEANED AND REDRESSED.
[2021-06-25] MEDS: MORPHINE SULFATE 4 MG/ML SYR IVP PRN (02:39)
--- NOTE | 2021-06-25 04:08 | NUR ---
RT AT BEDSIDE CHECKING ON PT CONDITION.
[2021-06-25 04:15] VITALS: BP 110/58
[2021-06-25] MEDS: LORazepam 2 MG/ML VIAL IVP PRN ×2 (04:50→21:33)
--- NOTE | 2021-06-25 05:37 | NUR ---
PT DIAPER AND LINENS CHANGED; PT REPOSITIONED IN BED AND FRESH CHUCKES PLACED. NO WOUNDS NOTED ON PT'S BACKSIDE. PT TOLERATED PROCEDURE WELL.
[2021-06-25] MEDS: NITROGLYCERIN 2% 1 GM PKT TP SCH ×3 (05:48→21:48)
[2021-06-25] MEDS: LEVOTHYROXINE 0.1 MG TAB GT SCH (06:34)
--- NOTE | 2021-06-25 07:21 | NUR ---
GAVE TRANSFER OF CARE REPORT TO CONRADO PINO.
--- NOTE | 2021-06-25 07:28 | NUR ---
REPORT RECEIVED FROM ALVAREZ GRAVES FOR CONTINUITY OF CARE.
[2021-06-25 07:34] VITALS: BP 113/54
[2021-06-25 08:40] LABS: ANION GAP 8.1 (8-16); CARBON DIOXIDE 30.6 mmol/L (21-32); CREATININE 0.7 mg/dL (0.6-1.3); POTASSIUM 3.7 mmol/L (3.5-5.1)
[2021-06-25] MEDS: ASPIRIN 81 MG TAB.CHEW GT SCH (09:38)
[2021-06-25] MEDS: ATORVASTATIN 20 MG TAB GT SCH (09:39)
[2021-06-25] MEDS: SULFAMETH/TRIMETH DS 800/160MG 1 TAB GT SCH ×2 (09:39→21:44)
[2021-06-25] MEDS: VIT-B COMP/VIT-C/FOLIC ACID 1 TAB GT SCH (09:40)
[2021-06-25] MEDS: METOPROLOL 25 MG TAB GT SCH ×2 (09:40→21:46)
[2021-06-25 09:41] LABS: MAGNESIUM 2.1 mg/dL (1.8-2.4); PHOSPHORUS 2.7 mg/dL (2.5-4.9)
[2021-06-25] MEDS: lisinopriL 5 MG TAB GT SCH (09:41)
[2021-06-25] MEDS: NEOMYCIN/POLYMYXIN/BACITRACIN OIN 15 GM TUBE TP SCH (09:43)
--- NOTE | 2021-06-25 10:00 | NUR ---
PATIENT SOILED IN BED, PROVIDED CLEAN LINENS, GOWN AND DIAPER. PERNIEAL CARE PROVIDED. PATIENT SAFETY MEASURES PUT IN PLACE. WILL CONTINUE TO MONITOR.
--- NOTE | 2021-06-25 10:38 | NUR ---
06/25/21 RD FOLLOW UP COMPLETED PLEASE REFER TO NUTRITION ASSESSMENT UNDER CARE ACTIVITY FOR ESTIMATED NUTRITIONAL NEEDS. 1. CONTINUE CURRENT TPN REGIME MEDICALLY APPROPRIATE AND PER MD 2. WHEN/IF MEDICALLY APPROPRIATE, RECOMMEND VITAL AF 1.2 WITH A GOAL RATE OF 50 ML/HR -WATER FLUSH: 150 ML Q6H OR PER MD -START AT 10 ML/HR AND INCREASE BY 10 ML Q4H TOLERATED -WILL PROVIDE 1440 KCAL AND 90 GM PROTEIN, MEETING ESTIMATED NUTRITIONAL GOALS 3. MONITOR GI SYMPTOMS 4. RD TO FOLLOW-UP 2-3 DAYS, HIGH RISK WHIT PICKENS RD
--- NOTE | 2021-06-25 11:42 | NUR ---
DR. LOMBARDI AT PT BEDSIDE, STATES DR. MENARD NEEDS TO CONSULT WITH PT.
[2021-06-25] MEDS ORDERED: NITROGLYCERIN 2% 1 GM PKT TP ONE (13:07)
[2021-06-25 17:47] LABS: BASOPHILS # (AUTO) 0.1 K/uL (0.00-0.22); EOSINOPHILS # (AUTO) 0.1 K/uL (0-0.4); EOSINOPHILS % (AUTO) 0.7 % (0.0-4.0); HEMATOCRIT 27.6 % (36-48); HEMOGLOBIN 9.1 g/dL (12.0-16.0); LYMPHOCYTES # (AUTO) 1.3 K/uL (2.5-16.5); LYMPHOCYTES % (AUTO) 14.8 % (20.5-51.1); MEAN CORPUSCULAR HEMOGLOBIN 33 pg (27-31); MEAN CORPUSCULAR HGB CONC 33 g/dL (33-37); MEAN CORPUSCULAR VOLUME 100.8 fL (80-94); MONOCYTES # (AUTO) 0.8 K/uL (0.8-1.0); MONOCYTES % (AUTO) 9.8 % (1.7-9.3); NEUTROPHILS # (AUTO) 6.3 K/uL (1.8-7.7); NEUTROPHILS % (AUTO) 73.7 % (42.2-75.2); PLATELET COUNT (AUTO) 137 K/uL (140-450); RED BLOOD CELL COUNT(AUTO) 2.74 MIL/uL (4.20-5.40); RED CELL DISTRIBUTION WIDTH 16.5 % (11.6-13.7); WHITE BLOOD COUNT (AUTO) 8.5 K/uL (4.8-10.8)
[2021-06-25 18:19] LABS: ANION GAP 10.1 (8-16); CARBON DIOXIDE 31.6 mmol/L (21-32); POTASSIUM 4.7 mmol/L (3.5-5.1)
--- NOTE | 2021-06-25 19:15 | NUR ---
Pt report given to ALVAREZ MEDRANO. Transfer of care at this time.
--- NOTE | 2021-06-25 19:30 | NUR ---
RECEIVED PT IN BED 4 ATTACHED TO VENT VIA TRACH. LEVOPHED, TPN INFUSING
[2021-06-25] MEDS: DEXTROSE 50% IV SCH ×3 (20:09)
[2021-06-25] MEDS: FAT EMULSION 20% IV SCH ×3 (20:09)
[2021-06-25] MEDS: AMINO ACIDS 8.5% IV SCH ×3 (20:09)
--- NOTE | 2021-06-25 20:55 | NUR ---
RT AT BEDSIDE
--- NOTE | 2021-06-25 21:20 | NUR ---
RESTLESS, MEDICATED ORDERED
[2021-06-25 21:50] VITALS: BP 92/59
[2021-06-26 00:30] VITALS: BP 96/60
--- NOTE | 2021-06-26 02:00 | NUR ---
AWAKE. LINENS CHANGED. G-TUBE DRESSING CHANGED. TPN, LEVOPHED CONTINUES ORDERED
--- NOTE | 2021-06-26 02:00 | NUR ---
AWAKE. LINENS CHANGED. G-TUBE DRESSING CHANGED. TPN, LEVOPHED CONTINUES ORDERED
[2021-06-26] MEDS ORDERED: NOREPINEPHRINE 4 MG/4 ML VIAL IV ONE (02:30)
[2021-06-26] MEDS: LEVOFLOXACIN 750 MG/D5W PREMIX 150 ML IV SCH (03:02)
[2021-06-26 03:45] VITALS: BP 131/110
--- NOTE | 2021-06-26 04:30 | NUR ---
ORAL CARE GIVEN
[2021-06-26] MEDS: BLOOD GLUCOSE MONITORING 1 DEV DEV MC SCH ×4 (05:57→19:18)
[2021-06-26] MEDS: NITROGLYCERIN 2% 1 GM PKT TP SCH ×2 (05:58→14:05)
[2021-06-26] MEDS: LEVOTHYROXINE 0.1 MG TAB GT SCH (05:59)
--- NOTE | 2021-06-26 07:30 | NUR ---
Report and continuation of care received from ALVAREZ Delong.
[2021-06-26 07:39] VITALS: BP 106/68
--- NOTE | 2021-06-26 07:39 | NUR ---
RECEIVED ON A VOCSN VENTILATOR PLUGGED INTO RED OUTLET TOLERATING WELL TO A PORTEX DCT #7 AIRWAY SECURED WITH A JARVIS TRACH TIE CUFF PRESSURE CHECKED NOTED AMBU BAG AT BEDSIDE LOC AWAKE AND ALERT GOOD CHEST RISE DEEP TRACHEAL SUCTION FOR SMALL THIN YELLOW SECRETIONS AIRWAY PATENT
--- NOTE | 2021-06-26 07:40 | NUR ---
Received patient resting with semi-fowlers position. Ventilator, Levophed, TPN continued. street light wirer in place; SpO2 98%. Bed locked in lowest position, side rails x 2.
[2021-06-26] MEDS: METOPROLOL 25 MG TAB GT SCH ×2 (09:00→21:00)
--- NOTE | 2021-06-26 09:00 | NUR ---
0900 heparin withheld, no CBC for 06/26/20. Lab contacted
[2021-06-26 09:35] LABS: ANION GAP 9.5 (8-16); CARBON DIOXIDE 31.9 mmol/L (21-32); CREATININE 0.9 mg/dL (0.6-1.3); POTASSIUM 3.4 mmol/L (3.5-5.1)
[2021-06-26] MEDS: ATORVASTATIN 20 MG TAB GT SCH (10:16)
[2021-06-26] MEDS: SULFAMETH/TRIMETH DS 800/160MG 1 TAB GT SCH ×2 (10:16→21:00)
[2021-06-26] MEDS: lisinopriL 5 MG TAB GT SCH (10:16)
[2021-06-26] MEDS: VIT-B COMP/VIT-C/FOLIC ACID 1 TAB GT SCH (10:16)
[2021-06-26] MEDS: ASPIRIN 81 MG TAB.CHEW GT SCH (10:16)
[2021-06-26] MEDS: NEOMYCIN/POLYMYXIN/BACITRACIN OIN 15 GM TUBE TP SCH (10:17)
[2021-06-26 11:00] VITALS: BP 129/86
--- NOTE | 2021-06-26 11:00 | NUR ---
STABLE GOOD CHEST RISE DEEP TRACHEAL SUCTION FOR LARGE THIN YELLOW SECRETIONS AIRWAY PATENT
--- NOTE | 2021-06-26 11:14 | NUR ---
Elsa care performed; patient with urinary incontinence. Chucks applied. Diapers and linen changed. All pt needs met.
[2021-06-26 11:29] LABS: PHOSPHORUS 3.1 mg/dL (2.5-4.9)
[2021-06-26 11:56] LABS: BASOPHILS % (AUTO) 0.6 % (0.0-2.0); EOSINOPHILS % (AUTO) 0.5 % (0.0-4.0); HEMATOCRIT 23.9 % (36-48); HEMOGLOBIN 7.9 g/dL (12.0-16.0); LYMPHOCYTES # (AUTO) 1.1 K/uL (2.5-16.5); LYMPHOCYTES % (AUTO) 13.8 % (20.5-51.1); MEAN CORPUSCULAR HEMOGLOBIN 33 pg (27-31); MEAN CORPUSCULAR HGB CONC 33 g/dL (33-37); MEAN CORPUSCULAR VOLUME 100.7 fL (80-94); MONOCYTES # (AUTO) 0.9 K/uL (0.8-1.0); MONOCYTES % (AUTO) 11.9 % (1.7-9.3); NEUTROPHILS # (AUTO) 5.8 K/uL (1.8-7.7); NEUTROPHILS % (AUTO) 73.2 % (42.2-75.2); PLATELET COUNT (AUTO) 124 K/uL (140-450); RED BLOOD CELL COUNT(AUTO) 2.38 MIL/uL (4.20-5.40); RED CELL DISTRIBUTION WIDTH 16.6 % (11.6-13.7)
--- NOTE | 2021-06-26 12:15 | NUR ---
Dr. Richey made aware of G-tube drainage and redness at site. Will see pt.
--- NOTE | 2021-06-26 12:30 | NUR ---
Dr. Richey at bedside to remove G-tube.
--- NOTE | 2021-06-26 12:43 | NUR ---
Dr. Richey at bedside with RT made aware of patient agitation. Verbal received for Morphine 2mg IVP ONCE.
[2021-06-26] MEDS ORDERED: MORPHINE SULFATE 2 MG/ML SYR IVP ONE (12:45)
[2021-06-26] MEDS: LORazepam 2 MG/ML VIAL IVP PRN (13:10)
--- NOTE | 2021-06-26 19:14 | NUR ---
Patient sitting in semi-fowlers. TPN and drip continued. dock clerk in place. Bed locked in lowest position, side rails x 2.
--- NOTE | 2021-06-26 19:39 | NUR ---
Report and transfer of care endorsed to ALVAREZ Curry.
[2021-06-26] MEDS: DEXTROSE 50% IV SCH ×3 (20:00)
[2021-06-26] MEDS: FAT EMULSION 20% IV SCH ×3 (20:00)
[2021-06-26] MEDS: AMINO ACIDS 8.5% IV SCH ×3 (20:00)
--- NOTE | 2021-06-26 23:20 | NUR ---
pt suctioned three times with rt tito.
[2021-06-27] VITALS (11 sets, daily range): BP systolic 70–144; BP diastolic 16–68
[2021-06-27] MEDS ORDERED: LORazepam 2 MG/ML VIAL ONE (01:18)
[2021-06-27] MEDS ORDERED: MORPHINE SULFATE 4 MG/ML SYR ONE (01:19)
--- NOTE | 2021-06-27 02:01 | NUR ---
pt mouth cleaned. chapstick applied. wound cleaned with neosporin and new bandages. new brief provdied. allegra care.
[2021-06-27] MEDS: BLOOD GLUCOSE MONITORING 1 DEV DEV MC SCH ×4 (05:44→18:48)
[2021-06-27] MEDS: NITROGLYCERIN 2% 1 GM PKT TP SCH ×4 (06:09→21:00)
[2021-06-27] MEDS: LEVOTHYROXINE 0.1 MG TAB GT SCH (06:30)
--- NOTE | 2021-06-27 07:35 | NUR ---
Received pt from night nurse, pt is in bed and resting. previous G-tube site covered with 4 x 4, noted with redness. PICC line to R femoral infusing well. Pt is AAO x 1 , open eyes spontanously. No distress noted.
[2021-06-27 08:35] LABS: ANION GAP 10.2 (8-16); CARBON DIOXIDE 32.8 mmol/L (21-32); CREATININE 1.1 mg/dL (0.6-1.3)
[2021-06-27 08:55] LABS: PHOSPHORUS 3.9 mg/dL (2.5-4.9)
[2021-06-27] MEDS: VIT-B COMP/VIT-C/FOLIC ACID 1 TAB GT SCH (09:00)
[2021-06-27] MEDS: lisinopriL 5 MG TAB GT SCH (09:00)
[2021-06-27] MEDS: ATORVASTATIN 20 MG TAB GT SCH (09:00)
[2021-06-27] MEDS: METOPROLOL 25 MG TAB GT SCH ×2 (09:00→21:00)
[2021-06-27] MEDS: SULFAMETH/TRIMETH DS 800/160MG 1 TAB GT SCH (09:00)
[2021-06-27] MEDS: ASPIRIN 81 MG TAB.CHEW GT SCH (09:00)
[2021-06-27] MEDS: LEVOFLOXACIN 750 MG/D5W PREMIX 150 ML IV SCH (09:46)
--- NOTE | 2021-06-27 10:22 | NUR ---
Jean Baptiste inserted per MD order. Tolerated.
[2021-06-27] MEDS ORDERED: VANCOMYCIN PER PHARMACY MC PRN (11:25)
[2021-06-27] MEDS ORDERED: VANCOMYCIN 500 MG in DEXTROSE 5% 100 ML IV SCH (13:00)
--- NOTE | 2021-06-27 13:35 | NUR ---
Patient will be admitted to care of [facility]. Admited to ICU. Will go to room 1. Belongings list completed. Report to NAVIN PINO BY ALVAREZ HOLCOMB.
--- NOTE | 2021-06-27 16:00 | NUR ---
RECEIVED REPORT FROM ALVAREZ VANEGAS FROM ER BED 4 TO ICU BED 1. PT ACCOMPANIED BY EMT, RT, AND RN IN TRANSFER VIA GURNEY. GTUBE REMOVED PER DR. JONES, DR. MENARD TO CONSULT SOON FOR NEW GTUBE PLACEMENT. NO ACCESS FOR PO MEDS AT THIS TIME. PT IS TRACHEA TO VENT TV 400, PEEP 5, FIO2 28%, ON LEVO DRIP AT 10MCG, TPN 60ML/HR TO RIGHT FEMORAL DOUBLE LUMEN. SMTIH INSERTED IN ER BY ALVAREZ VANEGAS. CLOUDY YELLOW URINE NOTED I BAG DRAINING FREELY. ASSUMED CARE OF PATIENT AT THIS TIME.
--- NOTE | 2021-06-27 16:27 | NUR ---
DR. MENARD AT PT BEDSIDE FOR FURTHER EVALUATION. PER DR. MENARD PROPER SIZE NOT AVAILABLE FOR GTUBE PLACEMENT AT THIS TIME, INTRUCTED TO APPLY ZGUARD TO WOUND, COLOSTOMY BAG IN PLACE. PT MEDICATED PER DR. MENARD WITH MORPHINE 3MG IVP ORDERED. PER DR. MENARD NG TUBE ORDERED AND CONNECTED TO INTERMITTENT SUCTION AFTER PLACEMENT IS VERIFIED.
[2021-06-27] MEDS: MORPHINE SULFATE 4 MG/ML SYR IVP PRN (17:21)
[2021-06-27] MEDS: MIDODRINE 5 MG TAB PO SCH (19:00)
--- NOTE | 2021-06-27 19:15 | NUR ---
GAVE REPORT TO ALVAREZ ESCOBAR. TRANSFER OF CARE AT THIS TIME.
[2021-06-27] MEDS: LORazepam 2 MG/ML VIAL IVP PRN (20:05)
[2021-06-27] MEDS: DEXTROSE 50% 720 ML, AMINO ACIDS 8.5% 720 ML IV SCH ×2 (20:06)
[2021-06-27] MEDS: bisacodyL 10 MG SUPP RC SCH (21:12)
[2021-06-27] MEDS: LACTULOSE 20 GM/30 ML UDC PO SCH (21:12)
--- NOTE | 2021-06-27 21:46 | NUR ---
PHONE CALL TO DR SHRESTHA,WET END TESTER, SMOKE JUMPER IS DR JONES, INFORMED PT ON LEVOPHED DRIP; HR 40'S; MD SAID TO ADD DOPAMINE DRIP, METOPROLOL AND NITRO OINTMENT DC'D
[2021-06-27] MEDS ORDERED: DOPamine 400 MG/D5W PREMIX 250 ML IV ONE (21:47)
[2021-06-28] VITALS (24 sets, daily range): BP systolic 78–254; BP diastolic 32–175
[2021-06-28] MEDS: INSULIN LISPRO SLIDING SCALE 100 UNITS/ML VIAL SUBQ PRN (00:39)
[2021-06-28] MEDS: BLOOD GLUCOSE MONITORING 1 DEV DEV MC SCH ×5 (00:39→23:58)
[2021-06-28] MEDS ORDERED: NOREPINEPHRINE 4 MG/4 ML VIAL IV ONE (03:48)
[2021-06-28 05:29] LABS: ANION GAP 8.9 (8-16); CARBON DIOXIDE 32.6 mmol/L (21-32); CREATININE 0.8 mg/dL (0.6-1.3); POTASSIUM 3.5 mmol/L (3.5-5.1)
[2021-06-28 05:39] LABS: PHOSPHORUS 3.2 mg/dL (2.5-4.9)
[2021-06-28] MEDS: LEVOTHYROXINE 0.1 MG TAB GT SCH (06:16)
[2021-06-28] MEDS: MIDODRINE 5 MG TAB PO SCH ×3 (06:17→18:02)
--- NOTE | 2021-06-28 07:35 | NUR ---
RECEIVED REPORT FROM DIRECTOR EDUCATIONAL RADIO NURSE FOR CONTINUITY OF CARE. PT IS AOX0, APHASIC. RESPIRATIONS EVEN AND UNLABORED. VENT SETTINGS FIO2 24%, R14, V400, PEEP 5. SKIN IS WARM, DRY, AND INTACT. NOTED LT NARE NG TUBE ON LOW INTERMITTENT SUCTION. NOTED COLOSTOMY BAG ON ABD. PER DIRECTOR EDUCATIONAL RADIO NURSE PATIENT PULLED OUT G-TUBE. CONSULT WITH DR. MENARD ALREADY IN PLACE. IV SITE ON RT FEMORAL CENTRAL LINE INFUSING LEVO DRIP AT 15 MCG/KG/HR, TPN 60ML/HR, AND DOPAMINE @3 MCG/KG/HR. SMITH CATH IN PLACE. CLOUDY YELLOW URINE DRAINING BY GRAVITY. PLAN OF CARE DISCUSSED. SAFETY PRECAUTIONS IN PLACE. CALL LIGHT WITHIN REACH. WILL CONTINUE TO MONITOR.
--- NOTE | 2021-06-28 08:15 | NUR ---
PATIENT TEMPERATURE WAS 100.7. INITIATED COOLING MEASURES.
[2021-06-28] MEDS: LEVOFLOXACIN 750 MG/D5W PREMIX 150 ML IV SCH (08:41)
[2021-06-28] MEDS: ASPIRIN 81 MG TAB.CHEW GT SCH (09:37)
[2021-06-28] MEDS: SULFAMETH/TRIMETH DS 800/160MG 1 TAB GT SCH ×2 (09:37→21:00)
[2021-06-28] MEDS: LACTULOSE 20 GM/30 ML UDC PO SCH ×2 (09:37→21:00)
[2021-06-28] MEDS: VIT-B COMP/VIT-C/FOLIC ACID 1 TAB GT SCH (09:37)
[2021-06-28] MEDS: ATORVASTATIN 20 MG TAB GT SCH (09:37)
[2021-06-28] MEDS: lisinopriL 5 MG TAB GT SCH (09:40)
--- NOTE | 2021-06-28 09:45 | NUR ---
ALL SCHEDULED MEDS GIVEN. PT IS STABLE NO DISTRESS NOTED. WILL CONTINUE TO MONITOR.
[2021-06-28 10:15] LABS: BASOPHILS # (AUTO) 0.1 K/uL (0.00-0.22); BASOPHILS % (AUTO) 0.8 % (0.0-2.0); EOSINOPHILS # (AUTO) 0.1 K/uL (0-0.4); EOSINOPHILS % (AUTO) 1.2 % (0.0-4.0); HEMATOCRIT 24.1 % (36-48); HEMOGLOBIN 7.8 g/dL (12.0-16.0); LYMPHOCYTES % (AUTO) 13.7 % (20.5-51.1); MEAN CORPUSCULAR HEMOGLOBIN 33 pg (27-31); MEAN CORPUSCULAR HGB CONC 33 g/dL (33-37); MEAN CORPUSCULAR VOLUME 101.1 fL (80-94); MONOCYTES # (AUTO) 0.6 K/uL (0.8-1.0); NEUTROPHILS # (AUTO) 5.7 K/uL (1.8-7.7); NEUTROPHILS % (AUTO) 76.3 % (42.2-75.2); PLATELET COUNT (AUTO) 112 K/uL (140-450); RED BLOOD CELL COUNT(AUTO) 2.38 MIL/uL (4.20-5.40); RED CELL DISTRIBUTION WIDTH 16.6 % (11.6-13.7); WHITE BLOOD COUNT (AUTO) 7.5 K/uL (4.8-10.8)
--- NOTE | 2021-06-28 10:56 | NUR ---
06/28/21 RD FOLLOW UP COMPLETED PLEASE REFER TO NUTRITION ASSESSMENT UNDER CARE ACTIVITY FOR ESTIMATED NUTRITIONAL NEEDS. 1. CONTINUE CURRENT TPN REGIME MEDICALLY APPROPRIATE AND PER MD 2. WHEN/IF MEDICALLY APPROPRIATE TO START TF, RECOMMEND VITAL AF 1.2 WITH A GOAL RATE OF 50 ML/HR -WATER FLUSH: 100 ML Q6H OR PER MD -START AT 10 ML/HR AND INCREASE BY 10 ML Q8H TOLERATED -WILL PROVIDE 1440 KCAL AND 90 GM PROTEIN, MEETING ESTIMATED NUTRITIONAL GOALS 3. MONITOR GI SYMPTOMS 4. RD TO FOLLOW-UP 2-3 DAYS, HIGH RISK WHIT PICKENS RD
--- NOTE | 2021-06-28 11:19 | NUR ---
BLOOD GLUCOSE CHECK WAS 132. NO INSULIN COVERAGE NEEDED.
--- NOTE | 2021-06-28 12:15 | NUR ---
PATIENT'S TEMPERATURE AT 99.2%. WILL CONTINUE COOLING MEASURES
[2021-06-28] MEDS: NOREPINEPHRINE 8 MG in DEXTROSE 5% 250 ML IV PRN (13:20)
--- NOTE | 2021-06-28 14:05 | NUR ---
O2 SATURATION WAS AT 84%. RT AT BEDSIDE.
--- NOTE | 2021-06-28 16:02 | NUR ---
NG TUBE DISLODGED. REINSERTED NEW NG TUBE IN RIGHT NARE. AUSCULTATED WITH STETHOSCOPE AND HEARD SWOOSH. ORDERED CXR TO VERIFY CORRECT PLACEMENT
--- NOTE | 2021-06-28 19:16 | NUR ---
ENDORSED TO CANDLE MOLDER NURSE FOR CONTINUITY OF CARE. PT IS STABLE.
--- NOTE | 2021-06-28 19:26 | NUR ---
REPORT RECEIVED FROM RODRÍGUEZ DUPREE, FOR CONTINUITY OF CARE. PT IN NO DISTRESS AT THIS TIME.
[2021-06-28] MEDS: DEXTROSE 50% 720 ML, AMINO ACIDS 8.5% 720 ML IV SCH ×2 (20:00)
[2021-06-28] MEDS: LORazepam 2 MG/ML VIAL IVP PRN (21:00)
[2021-06-28] MEDS: bisacodyL 10 MG SUPP RC SCH (21:00)
--- NOTE | 2021-06-28 21:00 | NUR ---
CENTRAL LINE DRESSING CHANGED. PATIENT REPOSITIONED AND DAILY CARE PERFORMED. PATIENT IN NO DISTRESS AT THIS TIME.
--- NOTE | 2021-06-28 23:57 | NUR ---
BLOOD GLUCOSE 134. NO COVERAGE NEEDED AT THIS TIME.
[2021-06-29] VITALS (32 sets, daily range): BP systolic 42–167; BP diastolic 17–110
[2021-06-29] MEDS: MORPHINE SULFATE 4 MG/ML SYR IVP PRN (01:52)
[2021-06-29] MEDS: DOPamine 400 MG/D5W PREMIX 250 ML IV PRN (01:54)
[2021-06-29] MEDS: NOREPINEPHRINE 8 MG in DEXTROSE 5% 250 ML IV PRN (01:57)
[2021-06-29] MEDS: BLOOD GLUCOSE MONITORING 1 DEV DEV MC SCH ×3 (05:42→18:52)
[2021-06-29] MEDS: LEVOTHYROXINE 0.1 MG TAB GT SCH (05:43)
[2021-06-29] MEDS: MIDODRINE 5 MG TAB PO SCH ×3 (06:00→18:52)
[2021-06-29 06:08] LABS: ANION GAP 8.7 (8-16); CARBON DIOXIDE 32.9 mmol/L (21-32); CREATININE 0.9 mg/dL (0.6-1.3); POTASSIUM 3.6 mmol/L (3.5-5.1)
--- NOTE | 2021-06-29 07:15 | NUR ---
RECEIVED REPORT FROM PATTERN CHART WRITER NURSE FOR CONTINUITY OF CARE. PT IS SLEEPING IN BED. PT IS TRACH TO VENT. RIGHT FEMORAL CENTRAL LINE 3 LUMEN RUNNING DOPAMINE 3 MCG/KG/MIN, LEVOPHED 21 MCG/MIN AND TPN 60 ML/HR. PT IS NPO AND HAS A NG TUBE ON RIGHT NARE. SMITH IS IN PLACE. PT HAS REDNESS ON BUTTOCKS AND ABDOMEN AREA. ALL SAFETY PRECAUTIONS ARE IN PLACE. WILL CONTINUE TO MONITOR.
--- NOTE | 2021-06-29 08:06 | NUR ---
RECEIVED ON A VOCSN VENTILATOR PLUGGED INT RED OUTLET TOLERATING WELL WITHOUT COMPLICATIONS NOTED TO A PORTEX DCT #7 AIRWAY SECURED WITH A JARVIS TRACH TIE CUFF PRESSURE CHECKED NOTED AMBU BAG AT BEDSIDE RESTING WELL EQUAL CHEST RISE GOOD AERATION THROUGHOUT BILATERAL LUNG THRASHER AIRWAY PATENT
[2021-06-29] MEDS: lisinopriL 5 MG TAB GT SCH (09:00)
[2021-06-29] MEDS: VIT-B COMP/VIT-C/FOLIC ACID 1 TAB GT SCH (09:00)
[2021-06-29] MEDS: SULFAMETH/TRIMETH DS 800/160MG 1 TAB GT SCH ×2 (09:00→21:00)
[2021-06-29] MEDS: LACTULOSE 20 GM/30 ML UDC PO SCH ×2 (09:00→21:00)
[2021-06-29] MEDS: ATORVASTATIN 20 MG TAB GT SCH (09:00)
--- NOTE | 2021-06-29 09:00 | NUR ---
PT DOES NOT HAVE A G TUBE IN PLACE. NGT IS ATTACHED TO SUCTION WITH SECRETIONS. DUE TO THE PT NOT HAVING PROPER MEDICATION ACCESS AND NO CURRENT LAB VALUES, ALL MEDICATIONS ARE ON HOLD.
--- NOTE | 2021-06-29 09:20 | NUR ---
PAEDIATRICIAN CALLED TO BEDSIDE PATIENT PRESENTING WITH DECLINING SATURATION TO 78% OF FIO2 ON SUPPLEMENTAL OXYGEN AT 2 LPM (28%) BLEED IN HEMODIALYSIS IN PROGRESS INCREASED FIO2 TO 70% Addendum: 06/29/21 at 1330 by Davide Arceo RT ERROR DOCUMENTATION ON WRONG PATIENT
[2021-06-29] MEDS: LEVOFLOXACIN 750 MG/D5W PREMIX 150 ML IV SCH (09:40)
[2021-06-29 10:51] LABS: PROTHROMBIN TIME 11.3 secs (10.8-13.4)
--- NOTE | 2021-06-29 11:10 | NUR ---
TALKED TO DR. ZENG VIA PHONE AND ADMINISTERED SCHEDULE AM MEDICATIONS VIA NG TUBE PER PROTOCOL. WILL CONTINUE TO ASSESS PT.
--- NOTE | 2021-06-29 11:12 | NUR ---
AWAKE SLIGHTLY IRRITABLE GOOD CHEST RISE GOOD CHEST RISE DEEP TRACHEAL SUCTION DEEP TRACHEAL SUCTION FOR MODERATE SEMI THICK YELLOW SECRETIONS AIRWAY PATENT
--- NOTE | 2021-06-29 14:23 | NUR ---
NO EVIDENCE OF PULMONARY DISTRESS NOTED EQUAL CHEST RISE DEEP TRACHEAL SUCTION FOR MODERATE SEMI THICK HAZY YELLOW SECRETIONS AIRWAY PATENT
--- NOTE | 2021-06-29 16:30 | NUR ---
DR. ZENG AT BEDSIDE.
--- NOTE | 2021-06-29 17:16 | NUR ---
RESTING COMFORTABLY WITHOUT SOB NOTED EQUAL CHEST RISE AIRWAY PATENT
--- NOTE | 2021-06-29 19:15 | NUR ---
ENDORSED CARE TO MANAGER MULTIMEDIA NURSE FOR CONTINUITY OF CARE.
[2021-06-29] MEDS: DEXTROSE 50% 720 ML, AMINO ACIDS 8.5% 720 ML IV SCH ×2 (20:00)
[2021-06-29] MEDS: bisacodyL 10 MG SUPP RC SCH (21:00)
[2021-06-29] MEDS: PANTOPRAZOLE 40 MG INJ VIAL IVP SCH (21:00)
[2021-06-29] MEDS ORDERED: NOREPINEPHRINE 4 MG/4 ML VIAL IV ONE (21:54)
[2021-06-29] MEDS: NOREPINEPHRINE 16 MG in DEXTROSE 5% 250 ML IV PRN (22:27)
--- NOTE | 2021-06-29 23:44 | NUR ---
PATIENT NOT ALERT LYING IN BED WITH NGT TO LOW INTERMITTENT SUCTION . PATIENT NPO HAS TRACH TO VENT RATE 14 FI02 28%, TV 400, PEEP 5 SAT 100%. LUNGS DIMINISH PATIENT HAS RIGHT FEMEROL TRIPLE LUMEN INFUSING DOPAMINE 3 MCG, LEVOPHED 20 MCG, NS 10CC HOUR. TPN 60 HOUR. PATIENT HAS A STOMA WITH A DRAINAGE BAG.DRAINING SCANT DARK RED BLOOD. BLOOD SUGAR MIDNITE 143COVERED PATIENT. WILL CHECK AGAIN IN A.M
[2021-06-30] VITALS (25 sets, daily range): BP systolic 66–182; BP diastolic 31–109
--- NOTE | 2021-06-30 00:08 | NUR ---
PATIENT WAS NOT COVERED BLOOD SUGAR 143 NO INSULIN GIVEN.
[2021-06-30] MEDS: BLOOD GLUCOSE MONITORING 1 DEV DEV MC SCH ×4 (06:00→18:23)
[2021-06-30] MEDS: LEVOTHYROXINE 0.1 MG TAB GT SCH (06:30)
[2021-06-30] MEDS: MIDODRINE 5 MG TAB PO SCH ×3 (06:32→18:24)
[2021-06-30 07:02] LABS: ANION GAP 10.5 (8-16); CARBON DIOXIDE 28.2 mmol/L (21-32); CREATININE 0.9 mg/dL (0.6-1.3); POTASSIUM 3.7 mmol/L (3.5-5.1)
--- NOTE | 2021-06-30 07:15 | NUR ---
RECEIVED REPORT FROM CHILDREN'S ZOO CARETAKER NURSE FOR CONTINUITY OF CARE. PT IS SLEEPING IN BED. PT IS TRACH TO VENT FIO2 28%, TV 400, RATE 14 AND PEEP 5. RIGHT FEMORAL CENTRAL LINE 3 LUMEN RUNNING DOPAMINE 3 MCG/KG/MIN, LEVOPHED 9 MCG/MIN AND TPN 60 ML/HR. PT IS NPO AND HAS A NG TUBE ON RIGHT NARE. SMITH IS IN PLACE. PT HAS REDNESS ON BUTTOCKS AND ABDOMEN AREA. ALL SAFETY PRECAUTIONS ARE IN PLACE. WILL CONTINUE TO MONITOR.
[2021-06-30 07:42] LABS: PHOSPHORUS 3.3 mg/dL (2.5-4.9)
--- NOTE | 2021-06-30 08:40 | NUR ---
DR. SCHULZ AT BEDSIDE. PER DR. SCHULZ ORDERS, PT WILL START TUBE FEEDING AND SUCTIONING WILL STOP. TUBE FEEDINGS WILL BE 10 ML/H AND WILL BE TOLERATED. WILL CONTINUE TO ASSESS.
[2021-06-30] MEDS: SULFAMETH/TRIMETH DS 800/160MG 1 TAB GT SCH (09:00)
[2021-06-30] MEDS: lisinopriL 5 MG TAB GT SCH (09:00)
[2021-06-30] MEDS: ATORVASTATIN 20 MG TAB GT SCH (09:00)
[2021-06-30] MEDS: VIT-B COMP/VIT-C/FOLIC ACID 1 TAB GT SCH (09:00)
[2021-06-30] MEDS: LEVOFLOXACIN 750 MG/D5W PREMIX 150 ML IV SCH (09:00)
[2021-06-30] MEDS: LACTULOSE 20 GM/30 ML UDC PO SCH ×2 (09:01→21:00)
[2021-06-30] MEDS: PANTOPRAZOLE 40 MG INJ VIAL IVP SCH ×2 (09:01→21:00)
--- NOTE | 2021-06-30 10:55 | NUR ---
DR. LOMBARDI AT BEDSIDE.
--- NOTE | 2021-06-30 13:20 | NUR ---
DR. HOOD ON BEDSIDE.
[2021-06-30] MEDS: NOREPINEPHRINE 16 MG in DEXTROSE 5% 250 ML IV PRN (15:57)
--- NOTE | 2021-06-30 18:00 | NUR ---
PER ORDERS, STARTED TUBE FEEDING AT 10 ML/HR AND WILL STOP FEEDING IF FEEDING COMES OUT OF OSTOMY BAG.
--- NOTE | 2021-06-30 19:15 | NUR ---
ENDORSED CARE TO MEDICAL POLICY SPECIALIST NURSE FOR CONTINUITY OF CARE.
--- NOTE | 2021-06-30 19:30 | NUR ---
RECEIVED REPORT FROM DAY SHIFT, ASSUMED CARE. PATIENT OBSERVED IN BED AWAKE WITH EYES OPEN AOX0. TRACH TO VENT WITH SETTINGS: FIO2 28%, TV 400, RATE 14, AND PEEP 5, O2 SAT AT 100%. RUNNING TPN AT 60 ML/HR, DOPAMINE 3 MCG/KG/MIN, AND LEVOPHED 7 MCG/MIN VIA RIGHT FEMORAL CENTRAL LINE TLC. CENTRAL LINE SITE DRY AND INTACT WITH NO SIGNS OF INFECTION. NG TUBE R NARE PRESENT RUNNING JEVITY AT 10 ML/HR, NO RESIDUAL AT THE MOMENT. SMITH CATHETER IN PLACE. ALL SAFETY MEASURES IN PLACE WILL CONTINUE TO CLOSELY MONITOR AND FOLLOW POC.
[2021-06-30] MEDS: DEXTROSE 50% 720 ML, AMINO ACIDS 8.5% 720 ML IV SCH ×2 (20:00)
[2021-06-30] MEDS: bisacodyL 10 MG SUPP RC SCH (21:00)
--- NOTE | 2021-06-30 21:00 | NUR ---
2100 MEDICATIONS ADMINISTERED. REPOSITIONED PATIENT, REDNESS NOTED IN SACRUM AREA, Z-GUARD APPLIED. COLOSTOMY BAG IN PLACE AROUND PEG TUBE STOMA, AREA DRY WITH REDNESS STILL NOTED. ORAL CARE PROVIDED. WILL CONTINUE TO CLOSELY MONITOR AND FOLLOW POC.
[2021-06-30] MEDS: LORazepam 2 MG/ML VIAL IVP PRN (23:55)
--- NOTE | 2021-06-30 23:55 | NUR ---
ADMINISTERED ATIVAN PER PRN ORDERS. PATIENT APPEARS RESTLESS WITH CONSTANT HAND IGOR LEG MOVEMENTS, AWAKE WITH OPEN EYES IN NO ACUTE DISTRESS. WILL CONTINUE TO CLOSELY MONITOR AND FOLLOW POC.
[2021-07-01] VITALS (29 sets, daily range): BP systolic 88–152; BP diastolic 34–93
[2021-07-01] MEDS: BLOOD GLUCOSE MONITORING 1 DEV DEV MC SCH ×4 (00:12→18:25)
--- NOTE | 2021-07-01 01:00 | NUR ---
PATIENT OBSERVED SLEEPING COMFORTABLY IN NO APPARENT ACUTE DISTRESS. O2 SAT 97%, CONTINUES ON DOPAMINE DRIP AND LEVOPHED DRIP. ALL SAFETY MEASURES IN PLACE, WILL CONTINUE TO CLOSELY MONITOR AND FOLLOW POC.
--- NOTE | 2021-07-01 03:15 | NUR ---
PATIENT HAD BM, MORNING CARE PROVIDED INCLUDING ORAL VAP CARE AND REPOSITIONED. R FEMORAL CENTRAL LINE DRESSING CHANGED, NO SIGNS OF INFECTION NOTED. CHECKED NG TUBE RESIDUAL WITH APPROXIMATELY 50 CC RESIDUAL. PATIENT IN NO ACUTE DISTRESS. WILL CONTINUE TO MONITOR AND FOLLOW POC.
[2021-07-01] MEDS: MORPHINE SULFATE 4 MG/ML SYR IVP PRN ×2 (05:00→15:20)
--- NOTE | 2021-07-01 05:00 | NUR ---
RT AT BEDSIDE PROVIDING TRACHEOSTOMY CARE. ADMINISTERED MORPHINE PER PRN ORDERS DUE TO DISCOMFORT NOTED DURING TRACH CARE. NO SIGNS OF ACUTE DISTRESS NOTED. O2 SAT 100%. WILL CONTINUE TO CLOSELY MONITOR AND FOLLOW POC.
[2021-07-01] MEDS: MIDODRINE 5 MG TAB PO SCH ×3 (06:09→18:25)
[2021-07-01] MEDS: LEVOTHYROXINE 0.1 MG TAB GT SCH (06:09)
[2021-07-01] MEDS: LORazepam 2 MG/ML VIAL IVP PRN (06:30)
--- NOTE | 2021-07-01 06:30 | NUR ---
PATIENT APPEARED RESTLESS WITH CONSTANT HAND MOVEMENT AND REACHING FOR NG TUBE. ADMINISTERED ATIVAN ORDERED PER PRN ORDERS. WILL CONTINUE TO CLOSELY MONITOR.
[2021-07-01 06:37] LABS: ANION GAP 9.4 (8-16); CARBON DIOXIDE 26.6 mmol/L (21-32); CREATININE 0.8 mg/dL (0.6-1.3)
[2021-07-01 06:47] LABS: MAGNESIUM 2.2 mg/dL (1.8-2.4); PHOSPHORUS 3.1 mg/dL (2.5-4.9)
--- NOTE | 2021-07-01 07:15 | NUR ---
PATIENT REPORT GIVEN TO DAY SHIFT NURSE, ENDORSED CARE. PATIENT IN NO DISTRESS.
--- NOTE | 2021-07-01 07:20 | NUR ---
RECEIVED REPORT FROM STONE SPREADER OPERATOR NURSE FOR CONTINUITY OF CARE. PT IS SLEEPING IN BED. PT IS TRACH TO VENT FIO2 28%, TV 400, RATE 14 AND PEEP 5. RIGHT FEMORAL CENTRAL LINE 3 LUMEN RUNNING DOPAMINE 4 MCG/KG/MIN, LEVOPHED 8 MCG/MIN AND TPN 60 ML/HR. PT IS NPO AND HAS A NG TUBE ON RIGHT NARE WITH SUCTIONING. SMITH IS IN PLACE. PT HAS REDNESS ON BUTTOCKS AND ABDOMEN AREA. ALL SAFETY PRECAUTIONS ARE IN PLACE. WILL CONTINUE TO MONITOR.
[2021-07-01 07:30] LABS: EOSINOPHILS # (AUTO) 0.1 K/uL (0-0.4); EOSINOPHILS % (AUTO) 1.5 % (0.0-4.0); HEMATOCRIT 20.1 % (36-48); LYMPHOCYTES # (AUTO) 1.2 K/uL (2.5-16.5); LYMPHOCYTES % (AUTO) 24.7 % (20.5-51.1); MEAN CORPUSCULAR HEMOGLOBIN 33 pg (27-31); MEAN CORPUSCULAR HGB CONC 33 g/dL (33-37); MEAN CORPUSCULAR VOLUME 101.7 fL (80-94); MONOCYTES # (AUTO) 0.5 K/uL (0.8-1.0); NEUTROPHILS # (AUTO) 2.9 K/uL (1.8-7.7); NEUTROPHILS % (AUTO) 61.8 % (42.2-75.2); PLATELET COUNT (AUTO) 96 K/uL (140-450); RED BLOOD CELL COUNT(AUTO) 1.97 MIL/uL (4.20-5.40); RED CELL DISTRIBUTION WIDTH 17.3 % (11.6-13.7); WHITE BLOOD COUNT (AUTO) 4.7 K/uL (4.8-10.8)
--- NOTE | 2021-07-01 08:01 | NUR ---
RECEIVED ON A VOCSN VENTILATOR PLUGGED INTO RED OUTLET TOLERATING WELL WITHOUT ADVERSE REACTIONS NOTED TO A PORTEX DCT #7 AIRWAY SECURED WITH A JARVIS TRACH TIE CUFF PRESSURE CHECKED NOTE AMBU BAG AT BEDSIDE GOOD CHEST RISE DEEP TRACHEAL SUCTION FOR SMALL THIN YELLOW/GREEN SECRETIONS AIRWAY PATENT
[2021-07-01] MEDS: VIT-B COMP/VIT-C/FOLIC ACID 1 TAB GT SCH (08:22)
[2021-07-01] MEDS: ATORVASTATIN 20 MG TAB GT SCH (08:22)
[2021-07-01] MEDS: LACTULOSE 20 GM/30 ML UDC PO SCH ×2 (08:22→20:54)
[2021-07-01] MEDS: lisinopriL 5 MG TAB GT SCH (08:22)
[2021-07-01] MEDS: PANTOPRAZOLE 40 MG INJ VIAL IVP SCH ×2 (08:22→20:54)
--- NOTE | 2021-07-01 09:20 | NUR ---
RADIOLOGY AT BEDSIDE.
[2021-07-01 09:37] LABS: HEMOGLOBIN 6.5 g/dL (12.0-16.0)
--- NOTE | 2021-07-01 09:47 | NUR ---
LAB CALLED VIA PHONE REGARDING PT LAB VALUES OF HGB 6.5 [address] LOMBARDI AND WAITING FOR A CALL BACK.
[2021-07-01] MEDS: NOREPINEPHRINE 16 MG in DEXTROSE 5% 250 ML IV PRN (10:57)
[2021-07-01] MEDS ORDERED: SODIUM FERRIC GLUCONATE 125 MG in NACL 0.9% 100 ML IV SCH (11:00)
--- NOTE | 2021-07-01 11:52 | NUR ---
STABLE NO EVIDENCE OF RESPIRATORY DISTRESS NOTED EQUAL CHEST RISE DEEP TRACHEAL SUCTION FOR MODERATE SEMI THICK YELLOW/GREEN SECRETIONS AIRWAY PATENT
--- NOTE | 2021-07-01 13:14 | NUR ---
CALLED YAQUELIN FLOWER [facility] HEAD OF ENGLISH [phone]. PER YAQUELIN, SHE IS NOT THE CONSERVATOR AND PT DOES NOT HAVE A CONSERVATOR TO ASK FOR CONSENT
--- NOTE | 2021-07-01 13:47 | NUR ---
NO DISTRESS NOTED EQUAL CHEST RISE AIRWAY PATENT
--- NOTE | 2021-07-01 15:00 | NUR ---
DR. MENARD AT BEDSIDE AND REMOVED OSTOMY BAG AND PLACED PEGTUBE. PER DR. MENARD ORDERS. NG TUBE WAS REMOVED AND TUBE FEEDING WAS CONNECTED TO PEGTUBE. WILL CONTINUE TO MONITOR.
--- NOTE | 2021-07-01 15:30 | NUR ---
PER DR. MENARD ORDERS, 4 MG OF MORPHINE WAS ADMINISTERED BEFORE PEGTUBE INSERTION.
--- NOTE | 2021-07-01 15:41 | NUR ---
PT. WITH LOW WIL SCALE AT RISK, CONTINUE TO FOLLOW PRESSURE INJURY PREVENTION INTERVENTIONS. -TURN AND REPOSITION PATIENT Q 2H -INSPECT SKIN UNDER AND AROUND MEDICAL DEVICES. -ASSESS AND MONITOR SKIN CONDITION DURING POSITION CHANGE -OFFLOAD BILATERAL HEELS BY PLACING PILLOWS UNDER CALVES AT ALL TIMES, UNLESS OTHERWISE CONTRAINDICATED -APPLY HEEL PROTECTORS -PRESSURE REDISTRIBUTION SURFACE AND OFFLOADING SACRALCOCCYX -MANAGE MOISTURE, FRICTION AND SHEAR BY KEEP SKIN CLEAN AND DRY. -MANAGE FRICTION AND SHEAR BY USING LIFT SHEET TO REPOSITION PATIENT -HOB 30 DEGREE TOLERATE -PLEASE FOLLOW RD RECOMMENDATIONS PLEASE NOTIFIED WOUND CARE NURSE FOR ANY CHANGE OF SKIN CONDITION
--- NOTE | 2021-07-01 17:16 | NUR ---
NO DISTRESS NOTED GOOD CHEST RISE AIRWAY PATENT
[2021-07-01] MEDS: INSULIN LISPRO SLIDING SCALE 100 UNITS/ML VIAL SUBQ PRN (18:25)
--- NOTE | 2021-07-01 19:40 | NUR ---
ASSUMED CARE OF PT.INITIAL ASSESSMENT COMPLETED.PT AWAKE; OPENS EYES NOT FOLLOWING COMMANDS.SR/SB ON MONITOR.TRACH TO VENT FIO2 28% TV 400 RATE 14 PEEP5.W/TLC TO RT FEMORAL INTACT.NO BLOOD RETURN TO ALL 3 PORTS INFUSING LEVOPHED 16MG IN 250ML D5 W AT 8MCG/MIN,DOPAMINE DRIP AT 5MCG/KG/MIN,TPN AT 60ML/HR AND NS AT 10ML/HR.DRY WT 59KG.W/G TUBE ALREADY IN PLACE.ON CONTINUOUS G TUBE FEEDING JEVITY AT 10ML/HR WITH WATER FLUSH ORDERED, GTUBE SITE REDDENED,SLIGHT LEAKING FORM STOMA NOTED, DRESSING CHANGED.W/SMIHT CATHETER TO BSD WITH ADEQUATE AMT OF YELLOW URINIE W/SEDIMENTS NOTED.ALL EXTREMITIES RIGID,BLE CONTRACTED.REDNESS ALSO TO BOTH UNDER BREAST FOLDS,PERINEAL AND ABDOMINAL AREA NOTED.FLACC 0
--- NOTE | 2021-07-01 19:45 | NUR ---
ENDORSED CARE TO SUSTAINABILITY SPECIALIST NURSE FOR CONTINUITY OF CARE.
--- NOTE | 2021-07-01 19:46 | NUR ---
PHONE CALL TO DR GARCIA,GASTRO; PT ON GTUBE FEEDING AT 10ML/HR AND ON TPN, DR MENARD SAID TO FINISH THE NEXT BAG OF TPN
--- NOTE | 2021-07-01 20:15 | NUR ---
PHONE CALL TO DR LOMBARDI, PTS HGB 6.5/HCT 20.1 PLATELET 96; PT ON HEPARIN SUBQ; DR LOMBARDI SAID TO HOLD HEPARIN DOSE. ALSO UPDATED PHYSICIAN THAT PT ON GTUBE FEEDING AT 10ML/HR PER DR MENARD,GASTRO, PT STILL ON TPN,TO FINISH TPN BAG AND DC FOR TOMORROW.CARRIED OUT
[2021-07-01] MEDS: DEXTROSE 50% 720 ML, AMINO ACIDS 8.5% 720 ML IV SCH ×2 (20:52)
[2021-07-01] MEDS: bisacodyL 10 MG SUPP RC SCH (20:55)
[2021-07-01] MEDS ORDERED: SODIUM FERRIC GLUCONATE 12.5 MG/ML AMP IV ONE (21:14)
[2021-07-01] MEDS: SODIUM FERRIC GLUCONATE 125 MG in NACL 0.9% 100 ML IV SCH (21:40)
[2021-07-01] MEDS: DOPamine 400 MG/D5W PREMIX 250 ML IV PRN (22:45)
[2021-07-02] VITALS (26 sets, daily range): BP systolic 89–153; BP diastolic 48–97
--- NOTE | 2021-07-02 | NUR ---
BS 128, NO INSULIN COVERAGE REQUIRED.NO RESIDUALS/GTUBE NOTED.WILL CONTINUE TO CLOSELY MONITOR PT
[2021-07-02] MEDS: BLOOD GLUCOSE MONITORING 1 DEV DEV MC SCH ×4 (00:39→18:24)
--- NOTE | 2021-07-02 04:30 | NUR ---
MORNING CARE DONE.ORAL CARE RENDERED.STILL LEAKING NOTED TO GTUBE SITE.NO RESIDUALS NOTED.FLACC 0
[2021-07-02] MEDS: LEVOTHYROXINE 0.1 MG TAB GT SCH (05:56)
[2021-07-02 06:34] LABS: EOSINOPHILS # (AUTO) 0.2 K/uL (0-0.4); LYMPHOCYTES # (AUTO) 1.3 K/uL (2.5-16.5); MEAN CORPUSCULAR HGB CONC 34 g/dL (33-37); MONOCYTES # (AUTO) 0.6 K/uL (0.8-1.0)
[2021-07-02 06:46] LABS: ANION GAP 12.5 (8-16); CARBON DIOXIDE 24.2 mmol/L (21-32); CREATININE 0.8 mg/dL (0.6-1.3); POTASSIUM 4.7 mmol/L (3.5-5.1)
[2021-07-02 06:55] LABS: BASOPHILS # (AUTO) 0.1 K/uL (0.00-0.22); BASOPHILS % (AUTO) 1.4 % (0.0-2.0); EOSINOPHILS % (AUTO) 3.5 % (0.0-4.0); LYMPHOCYTES % (AUTO) 27.2 % (20.5-51.1); MEAN CORPUSCULAR HEMOGLOBIN 34 pg (27-31); MEAN CORPUSCULAR VOLUME 100.2 fL (80-94); MONOCYTES % (AUTO) 11.7 % (1.7-9.3); NEUTROPHILS # (AUTO) 2.6 K/uL (1.8-7.7); NEUTROPHILS % (AUTO) 56.2 % (42.2-75.2); PLATELET COUNT (AUTO) 131 K/uL (140-450); RED BLOOD CELL COUNT(AUTO) 1.99 MIL/uL (4.20-5.40); RED CELL DISTRIBUTION WIDTH 17.1 % (11.6-13.7); WHITE BLOOD COUNT (AUTO) 4.7 K/uL (4.8-10.8)
[2021-07-02] MEDS: MIDODRINE 5 MG TAB PO SCH ×3 (07:00→18:56)
[2021-07-02 07:08] LABS: MAGNESIUM 2.1 mg/dL (1.8-2.4); PHOSPHORUS 3.5 mg/dL (2.5-4.9)
[2021-07-02 07:26] LABS: HEMOGLOBIN 6.8 g/dL (12.0-16.0)
--- NOTE | 2021-07-02 07:30 | NUR ---
REPORT GIVEN TO LEONIE RN FOR CONTINUITY OF CARE.
[2021-07-02] MEDS: ATORVASTATIN 20 MG TAB GT SCH (08:21)
[2021-07-02] MEDS: lisinopriL 5 MG TAB GT SCH (08:21)
[2021-07-02] MEDS: VIT-B COMP/VIT-C/FOLIC ACID 1 TAB GT SCH (08:21)
[2021-07-02] MEDS: PANTOPRAZOLE 40 MG INJ VIAL IVP SCH ×2 (08:22→20:39)
[2021-07-02] MEDS: LACTULOSE 20 GM/30 ML UDC PO SCH ×2 (08:22→20:40)
--- NOTE | 2021-07-02 08:45 | NUR ---
HGB AND HCT REPORTED TO DR. LOMBARDI, NO NEW ORDERS GIVEN
[2021-07-02] MEDS: DOPamine 400 MG/D5W PREMIX 250 ML IV PRN ×2 (10:16→22:18)
[2021-07-02] MEDS: NOREPINEPHRINE 16 MG in DEXTROSE 5% 250 ML IV PRN (11:20)
--- NOTE | 2021-07-02 14:13 | NUR ---
DC PLANNING: CM SPOKE WITH THE PATIENTS [facility] WORKER YAQUELIN LUEVANO, PHONE # [phone]. PATIENT RESIDES AT [facility] AND IS DEVELOPMENTALLY DELAYED, IS CHRONIC TRACH TO VENT. THE PATIENT REMAINS IN THE ICU ON LEVOPHED AND DOPAMINE, STARTED ON TPN PENDING REPLACEMENT OF PEG. ENDORSED TO YAQUELIN THAT THE PATIENT HAS NO IMMEDIATE PLANS FOR DISCHARGING TO [facility], CM WILL FOLLOW.
--- NOTE | 2021-07-02 19:30 | NUR ---
ASSUMED CARE OF PT.INITIAL ASSESSMENT COMPLETED.PT DEVELOPMENTALLY DELAYED.OPENS EYES NOT FOLLOWING COMMANDS.SR ON MONITOR.TRACH TO VENT FIO2 28% TV 400 RATE 14 PEEP5.W/TLC TO RT FEMORAL INTACT.NO BLOOD RETURN TO ALL 3 PORTS INFUSING LEVOPHED 16MG IN 250ML D5 W AT 10 MCG/MIN,DOPAMINE DRIP AT 10 MCG/KG/MIN,TPN AT 60ML/HR AND NS AT 10ML/HR.DRY WT 59KG.W/G TUBE ALREADY IN PLACE.ON CONTINUOUS G TUBE FEEDING JEVITY AT 10ML/HR WITH WATER FLUSH ORDERED, GTUBE SLIGHT LEAKING FROM STOMA STILL NOTED, DRESSING CHANGED.W/SMITH CATHETER TO BSD WITH ADEQUATE AMT OF YELLOW URINE W/SEDIMENTS NOTED.BLE CONTRACTED.REDNESS ALSO TO BOTH UNDER BREAST FOLDS,PERINEAL AND ABDOMINAL AREA NOTED.FLACC 0
--- NOTE | 2021-07-02 20:00 | NUR ---
TPN COMPLETED, DC'D ORDERED.ORAL CARE DONE.REPOSITIONED.
[2021-07-02] MEDS: SODIUM FERRIC GLUCONATE 125 MG in NACL 0.9% 100 ML IV SCH (20:38)
[2021-07-02] MEDS: bisacodyL 10 MG SUPP RC SCH (20:40)
[2021-07-03] VITALS (29 sets, daily range): BP systolic 72–138; BP diastolic 42–94
--- NOTE | 2021-07-03 | NUR ---
PT STILL RESTLESS; ORAL CARE DONE, ABLE TO SUCTION MODERATE AMT OF WHITISH SECRETIONS.REPOSITIONED.FLACC 0
--- NOTE | 2021-07-03 04:45 | NUR ---
MORNING CARE DONE.REPOSITIONED.DRESSING TO G TUBE SITE CHANGED,SLIGHT LEAKING TO GTUBE STILL NOTED.REPOSITIONED.FLACC 0
[2021-07-03] MEDS: LEVOTHYROXINE 0.1 MG TAB GT SCH (06:37)
[2021-07-03] MEDS: MIDODRINE 5 MG TAB PO SCH ×3 (06:37→18:44)
[2021-07-03] MEDS: BLOOD GLUCOSE MONITORING 1 DEV DEV MC SCH ×4 (06:38→18:30)
[2021-07-03 06:59] LABS: ANION GAP 12.8 (8-16); CARBON DIOXIDE 24.6 mmol/L (21-32); CREATININE 0.9 mg/dL (0.6-1.3); POTASSIUM 4.4 mmol/L (3.5-5.1)
[2021-07-03 07:08] LABS: FOLIC ACID 14.7 ng/mL (>3.0)
[2021-07-03 07:15] LABS: PHOSPHORUS 3.9 mg/dL (2.5-4.9)
--- NOTE | 2021-07-03 08:24 | NUR ---
RECEIVED ON A VOCSN VENTILATOR PLUGGED INTO RED OUTLET TOLERATING WELL WITHOUT ADVERSE REACTIONS NOTED TO A PORTEX DCT #7 AIRWAY SECURED WITH A JARVIS TRACH TIE CUFF PRESSURE CHECKED NOTED AMBU BAG AT BEDSIDE LOC AWAKE STABLE EQUAL CHEST RISE DEEP TRACHEAL SUCTION FOR SMALL THIN YELLOW SECRETIONS AIRWAY PATENT
--- NOTE | 2021-07-03 08:30 | NUR ---
PT WITH MULTIPLE LIQUID STOOLS, RECTAL TUBE PLACED, DR. DUEÑAS AWARE.
[2021-07-03] MEDS: PANTOPRAZOLE 40 MG INJ VIAL IVP SCH ×2 (08:55→21:00)
[2021-07-03] MEDS: LACTULOSE 20 GM/30 ML UDC PO SCH ×2 (08:55→21:00)
[2021-07-03] MEDS: lisinopriL 5 MG TAB GT SCH (08:56)
[2021-07-03] MEDS: ATORVASTATIN 20 MG TAB GT SCH (08:56)
[2021-07-03] MEDS: VIT-B COMP/VIT-C/FOLIC ACID 1 TAB GT SCH (08:56)
[2021-07-03] MEDS: SODIUM FERRIC GLUCONATE 125 MG in NACL 0.9% 100 ML IV SCH (12:06)
--- NOTE | 2021-07-03 14:15 | NUR ---
07/03/21 RD FOLLOW UP COMPLETED PLEASE REFER TO NUTRITION ASSESSMENT UNDER CARE ACTIVITY FOR ESTIMATED NUTRITIONAL NEEDS. 1. RECOMMEND JEVITY 1.2 WITH A NEW GOAL RATE OF 50 ML/HR -FWF: 50 ML Q4H OR PER MD -INCREASE BY 10 ML Q6H TOLERATED -WILL PROVIDE 1440 KCAL AND 67 GM PROTEIN, MEETING ESTIMATED NUTRITIONAL GOALS 2. MONITOR GI SYMPTOMS 3. RD TO FOLLOW-UP 2-3 DAYS, HIGH RISK WHIT PICKENS RD
[2021-07-03 18:59] LABS: MEAN CORPUSCULAR HEMOGLOBIN 33 pg (27-31); PLATELET COUNT (AUTO) 101 K/uL (140-450); WHITE BLOOD COUNT (AUTO) 4.8 K/uL (4.8-10.8)
[2021-07-03 19:06] LABS: HEMATOCRIT 20.3 % (36-48); MEAN CORPUSCULAR HGB CONC 33 g/dL (33-37); MEAN CORPUSCULAR VOLUME 102.2 fL (80-94); RED BLOOD CELL COUNT(AUTO) 1.99 MIL/uL (4.20-5.40); RED CELL DISTRIBUTION WIDTH 17.5 % (11.6-13.7)
--- NOTE | 2021-07-03 19:15 | NUR ---
RECEIVED PATIENT ON BED; AWAKE BUT DOESN'T FOLLOW ANY COMMANDS; ON TRACH TO VENT AT 28%FIO2.COMMENCING ON IV LEVOPHED AND DOPAMINE DRIP FOR BP MAINTENANCE VIA CENTRAL LINE TO RIGHT GROIN; PATENT AND INTACT. ABDOMEN IS SOFT, ACTIVE BOWEL SOUNDS. WITH SMITH CATH IN PLACE, DRAINING TO CLEAR YELLOW URINE OUTPUT. RECTAL TUBE IN PLACE.
[2021-07-03 19:22] LABS: HEMOGLOBIN 6.6 g/dL (12.0-16.0)
--- NOTE | 2021-07-03 20:30 | NUR ---
TURNED AND REPOSITIONED PATIENT; KEPT COMFORTABLE.
[2021-07-03] MEDS: NOREPINEPHRINE 16 MG in DEXTROSE 5% 250 ML IV PRN (20:43)
[2021-07-03] MEDS: bisacodyL 10 MG SUPP RC SCH (21:00)
[2021-07-03 22:06] LABS: EOSINOPHILS % (MANUAL) 1 % (0-4); LYMPHOCYTES % (MANUAL) 26 % (20-46); MONOCYTES % (MANUAL) 14 % (5-12)
[2021-07-03] MEDS: DOPamine 400 MG/D5W PREMIX 250 ML IV PRN (22:55)
[2021-07-04] VITALS (27 sets, daily range): BP systolic 70–145; BP diastolic 19–96
[2021-07-04] MEDS: BLOOD GLUCOSE MONITORING 1 DEV DEV MC SCH ×5 (00:30→23:40)
[2021-07-04] MEDS: LORazepam 2 MG/ML VIAL IVP PRN (03:05)
--- NOTE | 2021-07-04 05:40 | NUR ---
STARTED TO TRANSFUSED 1 UNIT PACKED CELLS ORDERED BY DR. DUEÑAS LAST NIGHT AFTER CHECKING WITH ANOTHER RN.
[2021-07-04] MEDS: LEVOTHYROXINE 0.1 MG TAB GT SCH (06:57)
[2021-07-04] MEDS: MIDODRINE 5 MG TAB PO SCH ×3 (06:58→18:52)
[2021-07-04 06:59] LABS: MAGNESIUM 1.9 mg/dL (1.8-2.4); PHOSPHORUS 3.4 mg/dL (2.5-4.9)
[2021-07-04 07:03] LABS: ANION GAP 10.2 (8-16); CARBON DIOXIDE 25.5 mmol/L (21-32); POTASSIUM 3.7 mmol/L (3.5-5.1)
[2021-07-04] MEDS: MORPHINE SULFATE 4 MG/ML SYR IVP PRN ×2 (07:57→22:20)
--- NOTE | 2021-07-04 07:57 | NUR ---
RECEIVED REPORT, ASSUMED CARE OF PT. PT RESTLESS, FACIAL GRIMACING. MEDICATED WITH MORPHINE FOR POSSIBLE PAIN. WILL CONTINUE TO MONITOR
--- NOTE | 2021-07-04 08:40 | NUR ---
BLOOD TRANSFUSION COMPLETE
[2021-07-04] MEDS: PANTOPRAZOLE 40 MG INJ VIAL IVP SCH ×2 (09:00→20:58)
[2021-07-04] MEDS: VIT-B COMP/VIT-C/FOLIC ACID 1 TAB GT SCH (09:00)
[2021-07-04] MEDS: lisinopriL 5 MG TAB GT SCH (09:00)
[2021-07-04] MEDS: LACTULOSE 20 GM/30 ML UDC PO SCH ×2 (09:00→20:58)
[2021-07-04] MEDS: ATORVASTATIN 20 MG TAB GT SCH (09:00)
--- NOTE | 2021-07-04 09:00 | NUR ---
DR. DUEÑAS AT BEDSIDE, INFORMED REGARDING PT RESTLESS, 30ML RESIDUAL, PT APPEARING TO HAVE PAIN. ORDER TO HOLD FEEDING X 8 HOURS THEN RESUME AT 30ML/HR. CENTRAL LINE LEAKING BLOOD AROUND INSERTION SITE, DR. DUEÑAS INFORMED. SAYS OK TO CONTINUE TO USE. ABLE TO OBTAIN BLOOD FROM ALL 3 PORTS. NEW DRESSING APPLIED TO CENTRAL LINE SITE MAINTAINING STERILE PROCEDURE. NO REDNESS NOTED TO SITE.
--- NOTE | 2021-07-04 09:30 | NUR ---
DRESSING TO PEG TUBE CHANGED, SITE REDDENED, EXCORIATED, SITE CLEANSED WITH WOUND CLEANSER, DRESSED WITH WOUND SPONGE AND COVERED WITH ADHESIVE ISLAND WOUND DRESSING. WOUND TO RIGHT LOWER ABDOMEN CLEANSED WITH WOUND CLEANSER AND DRESSED WITH VERSATEL AND COVERED WITH OPTIFOAM DRESSING. ABDOMINAL SKIN CONTINUES TO BE REDDENED, APPEARS EXCORIATED. SKIN CLEANSED AND DRIED.
[2021-07-04 10:25] LABS: MEAN CORPUSCULAR HEMOGLOBIN 35 pg (27-31); MEAN CORPUSCULAR HGB CONC 35 g/dL (33-37); MEAN CORPUSCULAR VOLUME 100.2 fL (80-94); PLATELET COUNT (AUTO) 181 K/uL (140-450); RED BLOOD CELL COUNT(AUTO) 1.87 MIL/uL (4.20-5.40); RED CELL DISTRIBUTION WIDTH 17.4 % (11.6-13.7); WHITE BLOOD COUNT (AUTO) 7.1 K/uL (4.8-10.8)
[2021-07-04] MEDS: SODIUM FERRIC GLUCONATE 125 MG in NACL 0.9% 100 ML IV SCH (12:01)
[2021-07-04 12:26] LABS: HEMOGLOBIN 6.6 g/dL (12.0-16.0)
[2021-07-04 12:27] LABS: HEMATOCRIT 18.7 % (36-48)
[2021-07-04 16:04] LABS: LYMPHOCYTES % (MANUAL) 73 % (20-46); MONOCYTES % (MANUAL) 4 % (5-12)
[2021-07-04 16:05] LABS: EOSINOPHILS % (MANUAL) 3 % (0-4)
--- NOTE | 2021-07-04 19:30 | NUR ---
REPORT RECEIVED FROM AM NURSE FOR CONTINUITY OF CARE. PATIENT IS RESTING IN BED AND UNDER NO DISTRESS.
[2021-07-04] MEDS: bisacodyL 10 MG SUPP RC SCH (20:58)
--- NOTE | 2021-07-04 20:58 | NUR ---
PM MEDICATIONS LACTULOSE AND DULCOLAX HELD DUE TO PATIENT HAVING MULTIPLE LOOSE STOOLS.
--- NOTE | 2021-07-04 22:34 | NUR ---
MORPHINE IVP GIVEN DUE TO PATIENT RESTLESSNESS
[2021-07-04] MEDS: DOPamine 400 MG/D5W PREMIX 250 ML IV PRN (23:10)
[2021-07-04] MEDS: NOREPINEPHRINE 16 MG in DEXTROSE 5% 250 ML IV PRN (23:23)
--- NOTE | 2021-07-04 23:40 | NUR ---
BLOOD GLUCOSE 106. NO COVERAGE NEEDED.
[2021-07-05] VITALS (30 sets, daily range): BP systolic 84–151; BP diastolic 27–89
--- NOTE | 2021-07-05 00:08 | NUR ---
NEW [facility] FEEDING HUNG AND RUNNING AT 40ML/HR
[2021-07-05] MEDS: MORPHINE SULFATE 4 MG/ML SYR IVP PRN ×3 (04:41→20:05)
[2021-07-05 06:15] LABS: BASOPHILS # (AUTO) 0.1 K/uL (0.00-0.22); BASOPHILS % (AUTO) 1.2 % (0.0-2.0); EOSINOPHILS # (AUTO) 0.2 K/uL (0-0.4); EOSINOPHILS % (AUTO) 2.4 % (0.0-4.0); HEMOGLOBIN 8.3 g/dL (12.0-16.0); LYMPHOCYTES # (AUTO) 1.6 K/uL (2.5-16.5); LYMPHOCYTES % (AUTO) 24.6 % (20.5-51.1); MEAN CORPUSCULAR HEMOGLOBIN 33 pg (27-31); MEAN CORPUSCULAR HGB CONC 33 g/dL (33-37); MEAN CORPUSCULAR VOLUME 98.1 fL (80-94); MONOCYTES # (AUTO) 0.8 K/uL (0.8-1.0); MONOCYTES % (AUTO) 12.8 % (1.7-9.3); NEUTROPHILS # (AUTO) 3.8 K/uL (1.8-7.7); PLATELET COUNT (AUTO) 109 K/uL (140-450); RED BLOOD CELL COUNT(AUTO) 2.55 MIL/uL (4.20-5.40); RED CELL DISTRIBUTION WIDTH 16.1 % (11.6-13.7); WHITE BLOOD COUNT (AUTO) 6.4 K/uL (4.8-10.8)
[2021-07-05] MEDS: BLOOD GLUCOSE MONITORING 1 DEV DEV MC SCH ×3 (06:15→18:13)
[2021-07-05 06:18] LABS: MAGNESIUM 1.9 mg/dL (1.8-2.4); PHOSPHORUS 3.1 mg/dL (2.5-4.9)
[2021-07-05 06:23] LABS: ANION GAP 8.9 (8-16); CARBON DIOXIDE 26.7 mmol/L (21-32); CREATININE 0.9 mg/dL (0.6-1.3); POTASSIUM 3.6 mmol/L (3.5-5.1)
[2021-07-05] MEDS: MIDODRINE 5 MG TAB PO SCH ×3 (06:27→18:13)
[2021-07-05] MEDS: LEVOTHYROXINE 0.1 MG TAB GT SCH (06:27)
--- NOTE | 2021-07-05 08:00 | NUR ---
DRESSING TO PEG TUBE SITE CHANGED. SKIN AROUND INSERTION SITE EXCORIATED, BRIGHT RED. AREA CLEANSED WITH WOUND CLEANSER AND DRESSING APPLIED. PT WITH FACIAL GRIMACING DURING DRESSING CHANGE. DR. DAN NOTIFIED OF STATUS OF PEG TUBE SITE.
--- NOTE | 2021-07-05 08:20 | NUR ---
FEEDINGS HOLD PER DR. DAN X 12 HOURS.
[2021-07-05] MEDS: lisinopriL 5 MG TAB GT SCH (09:00)
[2021-07-05] MEDS: LACTULOSE 20 GM/30 ML UDC PO SCH (09:00)
[2021-07-05] MEDS: ATORVASTATIN 20 MG TAB GT SCH (09:06)
[2021-07-05] MEDS: PANTOPRAZOLE 40 MG INJ VIAL IVP SCH ×2 (09:07→20:36)
[2021-07-05] MEDS: VIT-B COMP/VIT-C/FOLIC ACID 1 TAB GT SCH (09:07)
--- NOTE | 2021-07-05 11:52 | NUR ---
DR. MENARD AT BEDSIDE FOR EVAL. SAYS DO NOT USE PEG TUBE. SAYS DEFLATE BALLOON AND REMOVE PEG TUBE AND APPLY A COLOSTOMY BAG TO SITE. WOUND CONSULT ORDERED FOR AREA
[2021-07-05] MEDS ORDERED: TPN PER PHARMACY MC PRN (12:00)
[2021-07-05] MEDS: SODIUM FERRIC GLUCONATE 125 MG in NACL 0.9% 100 ML IV SCH (12:00)
[2021-07-05] MEDS ORDERED: HYDROCORTISONE NA SUCC 100 MG/2 ML VIAL IV SCH (12:00)
--- NOTE | 2021-07-05 12:15 | NUR ---
PEG TUBED REMOVED BY DR. MENARD. LG AMOUNT GASTRIC CONTENTS LEAKING OUT FROM PEG TUBE SITE. TOWELS USED TO SOAK UP CONTENTS. ONCE CONTENTS STOPPED FLOWING CONTINUOUSLY, A COLOSTOMY BAG WAS PLACED OVER PEG TUBE SITE TO COLLECT ANY REMAINING GASTRIC CONTENTS PER INSTRUCTION FROM DR. MENARD.
--- NOTE | 2021-07-05 13:00 | NUR ---
MIDRODINE HELD DUE TO RECENT REMOVAL OF PEG TUBE.
--- NOTE | 2021-07-05 13:25 | NUR ---
07/05/21 RD FOLLOW UP COMPLETED PLEASE REFER TO NUTRITION ASSESSMENT UNDER CARE ACTIVITY FOR ESTIMATED NUTRITIONAL NEEDS. 1. WILL START ON TPN PER PHARMACY TONIGHT 2. WHEN/IF MEDICALLY APPROPRIATE TO START TF, RECOMMEND JEVITY 1.2 WITH A NEW GOAL RATE OF 50 ML/HR -FWF: 50 ML Q4H OR PER MD -START AT 10 ML/HR AND INCREASE BY 10 ML Q6H TOLERATED -WILL PROVIDE 1440 KCAL AND 67 GM PROTEIN, MEETING ESTIMATED NUTRITIONAL GOALS 3. RD TO FOLLOW-UP 2-3 DAYS, HIGH RISK WHIT PICKENS RD
[2021-07-05] MEDS: HYDROCORTISONE NA SUCC 100 MG/2 ML VIAL IV SCH ×2 (13:39→20:36)
--- NOTE | 2021-07-05 19:23 | NUR ---
REPORT RECEIVED FROM LEONIE PINO, JOON, FOR CONTINUITY OF CARE. PATIENT IS CURRENTLY RESTING IN BED UNDER NO DISTRESS.
[2021-07-05] MEDS: AMINO ACIDS 8.5% IV SCH ×3 (19:44)
[2021-07-05] MEDS: DEXTROSE 50% IV SCH ×3 (19:44)
[2021-07-05] MEDS: FAT EMULSION 20% IV SCH ×3 (19:44)
[2021-07-05] MEDS: bisacodyL 10 MG SUPP RC SCH (20:05)
--- NOTE | 2021-07-05 20:15 | NUR ---
PATIENT IS CURRENTLY RESTLESS, GRIMACING AND APPEARS TO BE IN PAIN. PATIENT IS A/O x 0 AND NONVERBAL. TRACH TO VENT FIO2 28% O2 SATURATIONS 96%. RECEIVING DOPAMINE 10MCG/KG/MIN AND LEVOPHED 5MCG/KG/MIN. BILATERAL MITTEN RESTRAINTS ASSESSED AND REINFORCED. MORPHINE 0.75ML GIVEN FOR PAIN. WILL REASSESS PATIENT FOR PAIN.
--- NOTE | 2021-07-05 20:45 | NUR ---
PAIN REASSESSED, PATIENT NO LONGER GRIMACING AND RESTLESS. CURRENTLY RESTING IN BED.
[2021-07-06] VITALS (28 sets, daily range): BP systolic 66–164; BP diastolic 29–106
--- NOTE | 2021-07-06 00:10 | NUR ---
PATIENT RESTLESS AND GRIMACING, MORPHINE 0.75ML PRN GIVEN.
[2021-07-06] MEDS: MORPHINE SULFATE 4 MG/ML SYR IVP PRN ×2 (00:12→14:00)
[2021-07-06] MEDS: INSULIN LISPRO SLIDING SCALE 100 UNITS/ML VIAL SUBQ PRN (00:21)
--- NOTE | 2021-07-06 01:00 | NUR ---
PATIENT BLOOD GLUCOSE 152. 2 UNITS OF HUMALOG GIVEN
[2021-07-06] MEDS: DOPamine 400 MG/D5W PREMIX 250 ML IV PRN (03:38)
--- NOTE | 2021-07-06 03:57 | NUR ---
CATHETER DRESSING SOILED. DRESSING CHANGE COMPLETED
--- NOTE | 2021-07-06 04:44 | NUR ---
PICC LINE NURSE AT BEDSIDE
--- NOTE | 2021-07-06 06:08 | NUR ---
REMOVED FEMORAL CATHETER
[2021-07-06] MEDS: LEVOTHYROXINE 0.1 MG TAB GT SCH (06:12)
[2021-07-06] MEDS: BLOOD GLUCOSE MONITORING 1 DEV DEV MC SCH ×4 (06:12→18:22)
[2021-07-06] MEDS: MIDODRINE 5 MG TAB PO SCH ×3 (06:13→18:22)
--- NOTE | 2021-07-06 07:30 | NUR ---
RECEIVED REPORT FROM OPERATIONAL TRAINER. PT AWAKE, OPENS EYES NOT FOLLOWING COMMANDS. SR ON MONITOR. TRACH TO VENT FIO2 28% TV 400 RATE 14 PEEP 5. MICHELLE PICC INFUSING DOPAMINE DRIP AT 6 MCG/KG/MIN, TPN AT 83ML/HR AND NS AT 10ML/HR. DRY WT 59KG. NGT ALREADY IN PLACE, CLAMPED. PT IS NPO INCLUDING MEDS PER DR MENARD. GTUBE SITE REDDENED, LEAKING FROM STOMA NOTED, CONNECTED TO DRAINAGE BAG. W/SMITH CATHETER TO BSD WITH ADEQUATE AMT OF YELLOW URINIE W/SEDIMENTS NOTED. BLE CONTRACTED. SKIN NOT INTACT, REFER TO SKIN ASSESSMENT.
[2021-07-06 07:39] LABS: MAGNESIUM 2.2 mg/dL (1.8-2.4); PHOSPHORUS 2.9 mg/dL (2.5-4.9)
[2021-07-06 08:45] LABS: CARBON DIOXIDE 23.3 mmol/L (21-32); POTASSIUM 4.3 mmol/L (3.5-5.1)
--- NOTE | 2021-07-06 08:50 | NUR ---
DUE MEDS GIVEN. ORAL CARE AND SMITH CARE DONE. TURNED AND REPOSITIONED
[2021-07-06] MEDS: lisinopriL 5 MG TAB GT SCH (09:00)
[2021-07-06] MEDS: ATORVASTATIN 20 MG TAB GT SCH (09:00)
[2021-07-06] MEDS: VIT-B COMP/VIT-C/FOLIC ACID 1 TAB GT SCH (09:00)
[2021-07-06] MEDS: HYDROCORTISONE NA SUCC 100 MG/2 ML VIAL IV SCH ×2 (09:30→20:50)
[2021-07-06] MEDS: PANTOPRAZOLE 40 MG INJ VIAL IVP SCH ×2 (09:30→20:50)
--- NOTE | 2021-07-06 10:00 | NUR ---
SEEN AND EXAMINED BY EZEQUIEL LOGAN TO USE NGT FOR MEDS
--- NOTE | 2021-07-06 11:00 | NUR ---
RECEIVED CALL FROM DR DAN, ORDERED TO REMOVE DRAINAGE BAG FROM GT SITE AND COVER WITH DRY DRESSING, KEEP ON TPN AND LET GT SITE HEAL
[2021-07-06] MEDS: SODIUM FERRIC GLUCONATE 125 MG in NACL 0.9% 100 ML IV SCH (12:45)
--- NOTE | 2021-07-06 12:58 | NUR ---
WOUND CARE DONE ON GT SITE, TURNED AND REPOSITIONED
--- NOTE | 2021-07-06 14:00 | NUR ---
SBP STABLE AT 100s, HR 70s. TITRATED DOPAMINE DOWN TO 3MCG/KG/MIN
--- NOTE | 2021-07-06 16:45 | NUR ---
ANGEL CARE AND ORAL CARE DONE, TURNED AND REPOSITIONED
--- NOTE | 2021-07-06 17:00 | NUR ---
SBP IN THE 70s, HR 50s. TITRATED DOPAMINE UP TO 5MCG/KG/MIN
--- NOTE | 2021-07-06 18:45 | NUR ---
BP 130/60, STABLE WITH DOPAMINE AT 5MCG/KG/MIN
--- NOTE | 2021-07-06 19:25 | NUR ---
REPORT RECEIVED FROM JOON PINO FRO CONTINUITY OF CARE.PT LAYING IN BED VSS WITH TRACH TO VENT FIO2 @50%, TV @400, RATE @18, AND PEEP @5. NGT TO RT NARES IN PLACE CONNECTED TO SUCTION. MICHELLE PICC IN PLACE, PATENT AND INTACT, INFUSING DOPAMINE @5 MCG/HG/MIN, NS @10ML/HR, AND TPN @83 ML/HR. FC AND RECTAL TUBE IN PLACE DRAINING TO GRAVITY. SKIN NO INTACT, EXCORIATION TO BUTTOCK AND SACRAL AREA, AND REDNESS TO PERINEAL AREA, SEE WOUND ASSESSMENT. INITIAL ASSESSMENT COMPLETED. SAFETY MEASURES IN PLACE. WILL CONTINUE TO MONITOR.
[2021-07-06] MEDS: AMINO ACIDS 8.5% IV SCH ×3 (20:00)
[2021-07-06] MEDS: FAT EMULSION 20% IV SCH ×3 (20:00)
[2021-07-06] MEDS: DEXTROSE 50% IV SCH ×3 (20:00)
[2021-07-06] MEDS: bisacodyL 10 MG SUPP RC SCH (20:51)
--- NOTE | 2021-07-06 21:05 | NUR ---
SCHEDULED MEDS ADMINISTERED ORDERED. TOLERATED WELL. NADR NOTED. WILL CONTINUE TO MONITOR.
[2021-07-07] VITALS (29 sets, daily range): BP systolic 78–157; BP diastolic 25–95
--- NOTE | 2021-07-07 | NUR ---
BLOOD SUGAR READING @130 MG/DL. NO INSULIN COVERAGE NEEDED AT THIS TIME. WILL CONTINUE TO MONITOR. Addendum: 07/07/21 at 0436 by Rehan Ace RN NO INSULIN COVERAGE NEEDED AT THIS TIME PER SLIDING SCALE.
[2021-07-07] MEDS: BLOOD GLUCOSE MONITORING 1 DEV DEV MC SCH ×5 (00:08→23:35)
--- NOTE | 2021-07-07 00:26 | NUR ---
PT OBSERVED. BP STABLE IN 100s. NO SIGNS OF SOB, WITH CHEST RISE AND FALL PRESENT. WILL CONTINUE TO MONITOR.
--- NOTE | 2021-07-07 03:30 | NUR ---
AM CARE, ORAL CARE, AND ANGEL CARE PROVIDED. WILL CONTINUE TO MONITOR. Addendum: 07/07/21 at 0426 by Rehan Ace RN WOUND CARE PROVIDED. TURNED AND REPOSITIONED.
[2021-07-07 04:52] LABS: BASOPHILS % (AUTO) 0.2 % (0.0-2.0); HEMATOCRIT 22.8 % (36-48); HEMOGLOBIN 7.6 g/dL (12.0-16.0); LYMPHOCYTES # (AUTO) 0.8 K/uL (2.5-16.5); LYMPHOCYTES % (AUTO) 8.9 % (20.5-51.1); MEAN CORPUSCULAR HEMOGLOBIN 34 pg (27-31); MEAN CORPUSCULAR HGB CONC 34 g/dL (33-37); MEAN CORPUSCULAR VOLUME 100.8 fL (80-94); MONOCYTES # (AUTO) 0.5 K/uL (0.8-1.0); MONOCYTES % (AUTO) 5.7 % (1.7-9.3); NEUTROPHILS # (AUTO) 7.8 K/uL (1.8-7.7); NEUTROPHILS % (AUTO) 85.2 % (42.2-75.2); PLATELET COUNT (AUTO) 115 K/uL (140-450); RED BLOOD CELL COUNT(AUTO) 2.26 MIL/uL (4.20-5.40); RED CELL DISTRIBUTION WIDTH 17.3 % (11.6-13.7); WHITE BLOOD COUNT (AUTO) 9.1 K/uL (4.8-10.8)
[2021-07-07 05:00] LABS: ALBUMIN 1.9 g/dL (3.4-5.0); CREATININE 0.8 mg/dL (0.6-1.3); TOTAL BILIRUBIN 0.2 mg/dL (0.0-1.0)
--- NOTE | 2021-07-07 06:06 | NUR ---
BLOOD SUGAR READING @116 MG/DL. NO INSULIN COVERAGE NEEDED AT THIS TIME PER SLIDING SCALE. WILL CONTINUE TO MONITOR.
[2021-07-07] MEDS: MIDODRINE 5 MG TAB PO SCH ×3 (06:41→18:23)
[2021-07-07] MEDS: LEVOTHYROXINE 0.1 MG TAB GT SCH (06:41)
--- NOTE | 2021-07-07 07:22 | NUR ---
REPORT GIVEN TO DAYSGAFT RN FOR TRANSFER OF CARE.
--- NOTE | 2021-07-07 07:30 | NUR ---
RECEIVED REPORT FROM RESAW FEEDER. PT AWAKE, OPENS EYES NOT FOLLOWING COMMANDS. SR ON MONITOR. TRACH TO VENT ACVC FIO2 55% TV 400 RATE 15 PEEP 5. MICHELLE PICC INFUSING DOPAMINE DRIP AT 4 MCG/KG/MIN, TPN AT 83ML/HR AND NS AT 10ML/HR. DRY WT 59KG. NGT ALREADY IN PLACE, CLAMPED. PT IS NPO INCLUDING MEDS PER DR MENARD. GTUBE SITE REDDENED, DRESSING INTACT. W/SMITH CATHETER TO BSD WITH ADEQUATE AMT OF YELLOW URINE W/SEDIMENTS NOTED. RECTAL TUBE INTACT. BLE CONTRACTED. SKIN NOT INTACT, REFER TO SKIN ASSESSMENT.
--- NOTE | 2021-07-07 08:30 | NUR ---
DUE MEDS GIVEN. ORAL CARE AND SMITH CARE DONE. WITH LOOSE BMX1, RECTAL TUBE OUT WITH BALLOON INTACT AND INFLATED. RECTAL TUBE EVEN AFTER 2 ATTEMPTS OF REINSERTION. ANGEL CARE DONE, TURNED AND REPOSITIONED
[2021-07-07] MEDS: lisinopriL 5 MG TAB GT SCH (09:00)
[2021-07-07] MEDS: VIT-B COMP/VIT-C/FOLIC ACID 1 TAB GT SCH (09:34)
[2021-07-07] MEDS: ATORVASTATIN 20 MG TAB GT SCH (09:34)
[2021-07-07] MEDS: HYDROCORTISONE NA SUCC 100 MG/2 ML VIAL IV SCH ×2 (09:34→20:45)
[2021-07-07] MEDS: PANTOPRAZOLE 40 MG INJ VIAL IVP SCH ×2 (09:34→20:45)
[2021-07-07] MEDS: DOPamine 400 MG/D5W PREMIX 250 ML IV PRN (09:36)
--- NOTE | 2021-07-07 11:00 | NUR ---
PT BRADYCARDIC TO 40s WHEN ASLEEP, DR DAN AWARE, BP WNL. STILL ON DOPAMINE 4MCG/KG/MIN
[2021-07-07] MEDS: SODIUM FERRIC GLUCONATE 125 MG in NACL 0.9% 100 ML IV SCH (12:00)
[2021-07-07] MEDS: INSULIN LISPRO SLIDING SCALE 100 UNITS/ML VIAL SUBQ PRN (12:21)
--- NOTE | 2021-07-07 13:46 | NUR ---
WOUND CARE DONE. STILL WITH MUCOUS OOZING FROM GT SITE. TURNED AND REPOSITIONED
--- NOTE | 2021-07-07 17:45 | NUR ---
BLOOD SUGAR 146, NO COVERAGE NEEDED
--- NOTE | 2021-07-07 18:00 | NUR ---
DUE MEDS GIVEN. ORAL CARE DONE
--- NOTE | 2021-07-07 18:41 | NUR ---
SINUS DALTON 38 ON MONITOR, PT ASLEEP, APPEARS COMFORTABLE, NO RESPIRATORY DISTRESS. TITRATED DOPAMINE TO 6MCG/KG/MIN
--- NOTE | 2021-07-07 19:28 | NUR ---
REPORT RECEIVED FROM JOON PINO FRO CONTINUITY OF CARE.PT LAYING IN BED AND APPEARS ASLEEP. HR DALTON @44, NO SIGNS OF DISTRESS NOTED. WITH TRACH TO VENT FIO2 @50%, TV @400, RATE @18, AND PEEP @5; O2 SATURATION @100%. NGT TO RT NARES IN PLACE CONNECTED TO SUCTION. MICHELLE PICC IN PLACE, PATENT AND INTACT, INFUSING DOPAMINE @6 MCG/HG/MIN, NS @10ML/HR, AND TPN @83 ML/HR. FC IN PLACE DRAINING TO GRAVITY. SKIN NO INTACT, EXCORIATION TO BUTTOCK AND SACRAL AREA, AND REDNESS TO PERINEAL AREA, SEE WOUND ASSESSMENT. INITIAL ASSESSMENT COMPLETED. SAFETY MEASURES IN PLACE. WILL CONTINUE TO MONITOR.
[2021-07-07] MEDS: FAT EMULSION 20% IV SCH ×3 (20:00)
[2021-07-07] MEDS: DEXTROSE 50% IV SCH ×3 (20:00)
[2021-07-07] MEDS: AMINO ACIDS 8.5% IV SCH ×3 (20:00)
[2021-07-07] MEDS: bisacodyL 10 MG SUPP RC SCH (20:45)
--- NOTE | 2021-07-07 21:36 | NUR ---
SCHEDULED MEDS ADMINISTERED ORDERED. NADR NOTED. SAFETY MEASURES IN PLACE. WILL CONTINUE TO MONITOR.
--- NOTE | 2021-07-07 23:35 | NUR ---
BLOOD SUGAR READING @141 MG/DL. NO INSULIN COVERAGE NEEDED AT THIS TIME PER SLIDING SCALE. WILL CONTINUE TO MONITOR.
[2021-07-08] VITALS (30 sets, daily range): BP systolic 79–170; BP diastolic 20–120
--- NOTE | 2021-07-08 01:25 | NUR ---
PT OBSERVED. NO SIGNS OF DISTRESS NOTED. CHEST RISE AND FALL PRESENT. SINUS DALTON ON MONITOR. BP STABLE IN 100s. WILL CONTINUE TO MONITOR.
--- NOTE | 2021-07-08 03:27 | NUR ---
AM CARE, ANGEL CARE, AND ORAL CARE PROVIDED. PT REPOSITIONED. WILL CONTINUE TO MONITOR.
[2021-07-08 05:20] LABS: BASOPHILS % (AUTO) 0.1 % (0.0-2.0); HEMATOCRIT 23.8 % (36-48); HEMOGLOBIN 7.9 g/dL (12.0-16.0); LYMPHOCYTES # (AUTO) 0.6 K/uL (2.5-16.5); LYMPHOCYTES % (AUTO) 7.4 % (20.5-51.1); MEAN CORPUSCULAR HEMOGLOBIN 33 pg (27-31); MEAN CORPUSCULAR HGB CONC 33 g/dL (33-37); MEAN CORPUSCULAR VOLUME 101.5 fL (80-94); MONOCYTES # (AUTO) 0.7 K/uL (0.8-1.0); MONOCYTES % (AUTO) 8.5 % (1.7-9.3); NEUTROPHILS # (AUTO) 7.1 K/uL (1.8-7.7); PLATELET COUNT (AUTO) 114 K/uL (140-450); RED BLOOD CELL COUNT(AUTO) 2.35 MIL/uL (4.20-5.40); RED CELL DISTRIBUTION WIDTH 19.8 % (11.6-13.7); WHITE BLOOD COUNT (AUTO) 8.5 K/uL (4.8-10.8)
[2021-07-08] MEDS: BLOOD GLUCOSE MONITORING 1 DEV DEV MC SCH ×3 (06:00→18:31)
[2021-07-08] MEDS: DOPamine 400 MG/D5W PREMIX 250 ML IV PRN (06:00)
[2021-07-08 06:10] LABS: ALBUMIN 1.8 g/dL (3.4-5.0); ANION GAP 8.9 (8-16); CARBON DIOXIDE 30.9 mmol/L (21-32); CREATININE 0.6 mg/dL (0.6-1.3); TOTAL BILIRUBIN 0.3 mg/dL (0.0-1.0)
[2021-07-08 06:15] LABS: POTASSIUM 2.8 mmol/L (3.5-5.1)
[2021-07-08] MEDS: LEVOTHYROXINE 0.1 MG TAB GT SCH (06:30)
[2021-07-08] MEDS: MIDODRINE 5 MG TAB PO SCH ×3 (06:31→18:53)
[2021-07-08] MEDS: POTASSIUM CHLORIDE 20% 40 MEQ/15 ML UDC GT PRN (06:32)
--- NOTE | 2021-07-08 07:12 | NUR ---
RECEIVED REPORT FROM FLASK FITTER NURSE FOR CONTINUITY OF CARE. PT IS SLEEPING IN BED. PT IS TRACH TO VENT FIO2 28%, TV 400, RATE 118 AND PEEP 8. RIGHT UA CENTRAL LINE 3 LUMEN RUNNING DOPAMINE 6 MCG/KG/MIN, NS 10 ML/H AND TPN 83.33 ML/HR. PT IS NPO AND HAS A NG TUBE ON RIGHT NARE WITH SUCTIONING. SMITH IS IN PLACE. PT HAS REDNESS ON BUTTOCKS AND ABDOMEN AREA. ALL SAFETY PRECAUTIONS ARE IN PLACE. WILL CONTINUE TO [id number]
--- NOTE | 2021-07-08 07:24 | NUR ---
REPORT GIVEN TO JOON FUENTES FOR CONTINUITY OF CARE.
--- NOTE | 2021-07-08 08:13 | NUR ---
RHONCHI BREATHSOUNDS. SUCTION DONE AND IMPROVED BREATH SOUNDS AFTER SUCTIONING. SATS @ 100% ON FIO2 OF 60% TITRATED DOWN TO 50% PT TOLERATED WELL SATS @ 99%
[2021-07-08] MEDS: VIT-B COMP/VIT-C/FOLIC ACID 1 TAB GT SCH (08:34)
[2021-07-08] MEDS: ATORVASTATIN 20 MG TAB GT SCH (08:34)
[2021-07-08] MEDS: HYDROCORTISONE NA SUCC 100 MG/2 ML VIAL IV SCH ×2 (08:35→21:27)
[2021-07-08] MEDS: PANTOPRAZOLE 40 MG INJ VIAL IVP SCH ×2 (08:35→21:27)
[2021-07-08] MEDS: lisinopriL 5 MG TAB GT SCH ×2 (08:46→09:46)
[2021-07-08] MEDS: KCL 20 MEQ/WATER INJ PREMIX 100 ML IV SCH ×2 (09:57→14:41)
--- NOTE | 2021-07-08 10:04 | NUR ---
pt cleaned and turned to left side at this time. oral care done at this time. pt had liquid stool bowel movement, light brown/yellow stool. urine output 800ml clear, straw colored urine. new gown and linens changed at this time.
--- NOTE | 2021-07-08 10:52 | NUR ---
DC PLANNING: PATIENT HAS AN ORDER FOR LTAC EVAL. FAXED TO CM TO FOLLOW Addendum: 07/09/21 at 1418 by Eleanor Castillo RN DC PLANNING: CALLED ANATOLY SPOKE WITH ALBER GRIGGS STATED DENIED LTAC EVAL AND IF WANTS TO DO PEER TO PEER, SHE PROVIDE DR KOLE SOLO' NUMBER. NOTIFIED DR LOMBARDI. CM TO FOLLOW Addendum: 07/12/21 at 0900 by Eleanor Castillo RN DC PLANNING: SEEN BY UROLOGIST DR MENDEZ, NO IMMEDIATE UROLOGIC INTERVENTION FOR NON OBSTRUCTION LEFT RENAL STONES KEEP SMITH FLUSH PRN. OFF ABX , ON LEVOPHED DRIP. PULMO, ID, AND CARDIO FOLLOWING. CM TO FOLLOW Addendum: 07/12/21 at 1527 by Eleanor Castillo RN DC PLANNING: PATIENT HAS AN ORDER FOR A POSSIBLE DC OVER THE WEEKEND IF STABLE. FAXED ALL PAPER WORK NOTIFIED VANDANA SILVESTRE AT [facility] [place] [place] AND ARRANGE TRANSPORT WITH [facility] PL[facility] IT WILL CALL. PLS CALL [phone] FOR REPORT AND [facility] [phone]. CM TO FOLLOW Addendum: 07/15/21 at 1142 by Eleanor Castillo RN DC PLANNING: FAXED ALL THE CLINICALS TO [facility] [place] [place], AWAITING FOR RESPONSE. CM TO FOLLOW Addendum: 07/15/21 at 1347 by Eleanor Castillo RN DC PLANNING: PT GOT ACCEPTED AT [facility] [place] [place] CAN GO TO ROOM [facility] ARRANGE TRANSPORT WITH [facility] , AWAITING FOR DC ORDER. Addendum: 07/15/21 at 1502 by Eleanor Castillo RN DC PLANNING: RECEIVED AN AUTH# [id number] FROM ALBER GRIGGS AT [facility] [place]. ARRANGED TRANSPORT WITH [facility]. BOTTOM TURNING LATHE TURNER TIME 5 PM. NOTIFIED AMY PORRAS CM TO FOLLOW.
--- NOTE | 2021-07-08 11:55 | NUR ---
NO APPARENT DISTRESS NOTED EQUAL CHESTY RISE DEEP TRACHEAL SUCTION FOR LARGE DENNIS THICK YELLOW SECRETIONS AIRWAY PATENT
[2021-07-08] MEDS: INSULIN LISPRO SLIDING SCALE 100 UNITS/ML VIAL SUBQ PRN (12:26)
[2021-07-08] MEDS: SODIUM FERRIC GLUCONATE 125 MG in NACL 0.9% 100 ML IV SCH (12:38)
[2021-07-08] MEDS: MORPHINE SULFATE 4 MG/ML SYR IVP PRN ×2 (13:16→21:38)
--- NOTE | 2021-07-08 13:30 | NUR ---
RHONCHI BREATH SOUNDS. SUCTION DONE AND IMPROVED BREATH SOUNDS AFTER SUCTIONING.
--- NOTE | 2021-07-08 14:10 | NUR ---
DR. MENARD AT BEDSIDE AND PLACED A KNEW G-TUBE. PT WAS MEDICATED FOR PAIN PRIOR TO PROCEDURE. PT TOLERATED WELL G-TUNE. PER DR. MENARD ORDERS, PT WILL START TUBE FEEDING TOLERATED.
[2021-07-08 14:47] LABS: ANION GAP 8.1 (8-16); CREATININE 0.6 mg/dL (0.6-1.3); POTASSIUM 3.1 mmol/L (3.5-5.1)
--- NOTE | 2021-07-08 16:31 | NUR ---
07/08/21 RD FOLLOW UP COMPLETED PLEASE REFER TO NUTRITION ASSESSMENT UNDER CARE ACTIVITY FOR ESTIMATED NUTRITIONAL NEEDS. 1. RECOMMEND JEVITY 1.2 WITH A NEW GOAL RATE OF 50 ML/HR -FWF: 50 ML Q4H OR PER MD -START AT 10 ML/HR AND GRADUALLY INCREASE BY 10ML TOLERATED -WILL PROVIDE 1440 KCAL AND 67 GM PROTEIN AT GOAL RATE, MEETING ESTIMATED NUTRITIONAL GOALS 2. RD TO FOLLOW-UP 2-3 DAYS, HIGH RISK WHIT PICKENS RD
--- NOTE | 2021-07-08 16:31 | NUR ---
pt turned to right side. 1100ml of clear, yellow, foul smelling urine with sediment emptied from gutierrez at this time. oral care done at this time.
--- NOTE | 2021-07-08 19:24 | NUR ---
ENDORSED CARE TO METAL TANK BUILDER NURSE FOR CONTINUITY OF CARE.
[2021-07-08] MEDS: DEXTROSE 50% IV SCH ×3 (19:26)
[2021-07-08] MEDS: AMINO ACIDS 8.5% IV SCH ×3 (19:26)
[2021-07-08] MEDS: FAT EMULSION 20% IV SCH ×3 (19:26)
--- NOTE | 2021-07-08 19:58 | NUR ---
provided pericare to patient and repositioned patient. Patient tolerated well.
[2021-07-08] MEDS: bisacodyL 10 MG SUPP RC SCH (21:00)
[2021-07-09] VITALS (30 sets, daily range): BP systolic 54–151; BP diastolic 26–107
[2021-07-09] MEDS: BLOOD GLUCOSE MONITORING 1 DEV DEV MC SCH ×5 (00:34→23:25)
[2021-07-09] MEDS: DOPamine 400 MG/D5W PREMIX 250 ML IV PRN ×2 (01:44→19:42)
[2021-07-09] MEDS: MORPHINE SULFATE 4 MG/ML SYR IVP PRN (03:46)
[2021-07-09 06:01] LABS: PHOSPHORUS 2.2 mg/dL (2.5-4.9)
[2021-07-09 06:11] LABS: ALBUMIN 1.8 g/dL (3.4-5.0); ANION GAP 6.4 (8-16); CARBON DIOXIDE 32.7 mmol/L (21-32); CREATININE 0.6 mg/dL (0.6-1.3); POTASSIUM 3.1 mmol/L (3.5-5.1); TOTAL BILIRUBIN 0.2 mg/dL (0.0-1.0)
[2021-07-09 06:27] LABS: BASOPHILS % (AUTO) 0.1 % (0.0-2.0); HEMATOCRIT 24.3 % (36-48); HEMOGLOBIN 7.9 g/dL (12.0-16.0); LYMPHOCYTES # (AUTO) 0.6 K/uL (2.5-16.5); LYMPHOCYTES % (AUTO) 7.3 % (20.5-51.1); MEAN CORPUSCULAR HEMOGLOBIN 34 pg (27-31); MEAN CORPUSCULAR HGB CONC 33 g/dL (33-37); MEAN CORPUSCULAR VOLUME 102.9 fL (80-94); MONOCYTES # (AUTO) 0.8 K/uL (0.8-1.0); NEUTROPHILS # (AUTO) 6.5 K/uL (1.8-7.7); NEUTROPHILS % (AUTO) 82.6 % (42.2-75.2); PLATELET COUNT (AUTO) 114 K/uL (140-450); RED BLOOD CELL COUNT(AUTO) 2.36 MIL/uL (4.20-5.40); RED CELL DISTRIBUTION WIDTH 20.3 % (11.6-13.7); WHITE BLOOD COUNT (AUTO) 7.8 K/uL (4.8-10.8)
[2021-07-09] MEDS: POTASSIUM CHLORIDE 20% 40 MEQ/15 ML UDC GT PRN (06:51)
[2021-07-09] MEDS: LEVOTHYROXINE 0.1 MG TAB GT SCH (06:52)
[2021-07-09] MEDS: MIDODRINE 5 MG TAB PO SCH ×4 (06:52→20:41)
--- NOTE | 2021-07-09 07:11 | NUR ---
report given to day shift RN for continuation of care.
--- NOTE | 2021-07-09 07:18 | NUR ---
RECEIVED REPORT FROM GREEN PROMOTIONS SPECIALIST NURSE FOR CONTINUITY OF CARE. PT IS SLEEPING IN BED. PT IS TRACH TO VENT FIO2 28%, TV 400, RATE 18 AND PEEP 5. RIGHT UA CENTRAL LINE 3 LUMEN RUNNING DOPAMINE 3 MCG/KG/MIN, NS 10 ML/H AND TPN 83.33 ML/HR. PT IS NPO AND HAS A NG TUBE ON RIGHT NARE WITH SUCTIONING. G TUBE IN PLACE RUNNING JEVITY AT 10 ML/H, WATER FLUSHES OF 50 ML Q4H. SMITH IS IN PLACE. PT HAS REDNESS ON BUTTOCKS AND ABDOMEN AREA. ALL SAFETY PRECAUTIONS ARE IN PLACE. WILL CONTINUE TO MONITOR.
--- NOTE | 2021-07-09 08:10 | NUR ---
RECEIVED ON A VOCSN VENTILATOR PLUGGED INTO RED OUTLET TOLERATING WELL WITHOUT ADVERSE REACTIONS NOTED TO A PORTEX DCT #7 AIRWAY SECURED WITH A JARVIS TRACH TIE CUFF PRESSURE CHECKED NOTED AMBU BAG AT BEDSIDE RESTING COMFORTABLY NO EVIDENCE OF PULMONARY DISTRESS NOTED GOOD CHEST RISE AND AERATION THROUGHOUT BILATERAL LUNG THRASHER AIRWAY PATENT
--- NOTE | 2021-07-09 09:10 | NUR ---
UPDATED DR. LOMBARDI ON PT CONDITION VIA TELEPHONE.
[2021-07-09] MEDS: PANTOPRAZOLE 40 MG INJ VIAL IVP SCH (09:13)
[2021-07-09] MEDS: HYDROCORTISONE NA SUCC 100 MG/2 ML VIAL IV SCH (09:13)
[2021-07-09] MEDS: VIT-B COMP/VIT-C/FOLIC ACID 1 TAB GT SCH (09:13)
[2021-07-09] MEDS: ATORVASTATIN 20 MG TAB GT SCH (09:13)
--- NOTE | 2021-07-09 11:37 | NUR ---
NO EVIDENCE OF RESPIRATORY DISTRESS NOTED EQUAL CHEST RISE GOOD AERATION THROUGHOUT BILATERAL LUNG THRASHER AIRWAY PATENT
[2021-07-09] MEDS: SODIUM FERRIC GLUCONATE 125 MG in NACL 0.9% 100 ML IV SCH (12:20)
[2021-07-09] MEDS: INSULIN LISPRO SLIDING SCALE 100 UNITS/ML VIAL SUBQ PRN (12:21)
--- NOTE | 2021-07-09 13:40 | NUR ---
PT RHONCHI BILATERALLY. SUCTIONED AND IMPROVED BREATH SOUNDS.NO S/S OF DISTRESS. PT HAD THICK MODERATE YELLOW SECRETIONS
--- NOTE | 2021-07-09 14:00 | NUR ---
PER DR. MENARD ORDERS, NGT WAS REMOVED AND TPN WAS DC. PT WILL BE RECEIVING G TUBE FEEDINGS.
[2021-07-09] MEDS ORDERED: POTASSIUM CHLORIDE 20% 40 MEQ/15 ML UDC GT SCH (15:36)
[2021-07-09] MEDS ORDERED: ATROPINE 0.4 MG/ML VIAL IVP PRN (16:30)
--- NOTE | 2021-07-09 16:30 | NUR ---
PER DR. ALVARADO ORDERS GIVE PT ATROPINE WHEN HR IS BELOW 40 AND ORDER ABG.
--- NOTE | 2021-07-09 16:42 | NUR ---
STABLE GOOD CHEST RISE DEEP TRACHEAL SUCTION FOR SMALL THIN YELLOW SECRETIONS AIRWAY PATENT
--- NOTE | 2021-07-09 16:43 | NUR ---
PER DR. SHRESTHA ORDERS, HOLD ATROPINE IF HR IS BELOW 40 ONLY IF ITS TEMPORARILY. WILL CONTINUE TO MONITOR.
[2021-07-09] MEDS: FERROUS GLUCONATE 324 MG TAB PO SCH (17:38)
--- NOTE | 2021-07-09 19:20 | NUR ---
RECEIVED REPORT FROM ALFREDO PINO, FOR CONTINUITY OF CARE. PATIENT CURRENTLY RESTING IN BED TRACH TO VENT WITH O2 SATURATION AT 98%. HR BETWEEN 36-40 BPM. PATIENT APPEARS TO BE IN NO DISTRESS AT THIS TIME. WILL CONTINUE TO MONITOR.
[2021-07-09] MEDS ORDERED: NOREPINEPHRINE 4 MG/4 ML VIAL IV ONE (19:26)
--- NOTE | 2021-07-09 19:29 | NUR ---
ENDORSED CARE TO DOLL WIG MAKER ROOTED HAIR NURSE FOR CONTINUITY OF CARE.
[2021-07-09] MEDS: NOREPINEPHRINE 16 MG in DEXTROSE 5% 250 ML IV PRN (19:40)
[2021-07-09] MEDS: LORazepam 2 MG/ML VIAL IVP PRN (20:41)
--- NOTE | 2021-07-09 20:46 | NUR ---
PRN ATIVAN GIVEN DUE TO PATIENT BEING RESTLESS.
--- NOTE | 2021-07-09 21:59 | NUR ---
JEVITY 1.2 FEEDING INCREASED TO 30ML/HR. PATIENT TOLERATING FAIRLY.
--- NOTE | 2021-07-09 23:36 | NUR ---
BLOOD GLUCOSE 117. NO COVERAGE NEEDED.
[2021-07-10] VITALS (31 sets, daily range): BP systolic 67–156; BP diastolic 20–111
--- NOTE | 2021-07-10 05:05 | NUR ---
PATIENT TOLERATING FEEDING WELL WITH LIMITED RESIDUAL. INCREASED JEVITY 1.2 FROM 30 ML/HR TO 50ML/HR PER MD ORDER. WILL CONTINUE TO MONITOR.
[2021-07-10] MEDS: LEVOTHYROXINE 0.1 MG TAB GT SCH (05:44)
[2021-07-10] MEDS: BLOOD GLUCOSE MONITORING 1 DEV DEV MC SCH ×4 (05:44→23:50)
--- NOTE | 2021-07-10 05:45 | NUR ---
PATIENT BLOOD GLUCOSE 105. NO COVERAGE NEEDED.
--- NOTE | 2021-07-10 06:20 | NUR ---
PATIENT RESTLESS. ONE DOSE OF PRN ATIVAN GIVEN
[2021-07-10] MEDS: LORazepam 2 MG/ML VIAL IVP PRN (06:21)
[2021-07-10 06:38] LABS: BASOPHILS % (AUTO) 0.1 % (0.0-2.0); EOSINOPHILS # (AUTO) 0.1 K/uL (0-0.4); EOSINOPHILS % (AUTO) 0.9 % (0.0-4.0); HEMATOCRIT 26.7 % (36-48); HEMOGLOBIN 8.8 g/dL (12.0-16.0); LYMPHOCYTES # (AUTO) 1.7 K/uL (2.5-16.5); LYMPHOCYTES % (AUTO) 19.1 % (20.5-51.1); MEAN CORPUSCULAR HEMOGLOBIN 34 pg (27-31); MEAN CORPUSCULAR HGB CONC 33 g/dL (33-37); MEAN CORPUSCULAR VOLUME 102.8 fL (80-94); MONOCYTES # (AUTO) 1.3 K/uL (0.8-1.0); NEUTROPHILS # (AUTO) 5.7 K/uL (1.8-7.7); NEUTROPHILS % (AUTO) 64.9 % (42.2-75.2); PLATELET COUNT (AUTO) 135 K/uL (140-450); RED CELL DISTRIBUTION WIDTH 20.6 % (11.6-13.7); WHITE BLOOD COUNT (AUTO) 8.7 K/uL (4.8-10.8)
--- NOTE | 2021-07-10 07:03 | NUR ---
REPORT GIVEN TO DAYSHIFT RN FOR CONTINUITY OF CARE
--- NOTE | 2021-07-10 07:45 | NUR ---
RECEIVED REPORT FROM ALVAREZ ESPINOSA. TRANSFER OF CARE AT THIS TIME.
--- NOTE | 2021-07-10 07:48 | NUR ---
RECEIVED ON A VOCSN VENTILATOR PLUGGED INTO RED OUTLET TOLERATING WELL WITHOUT ADVERSE REACTIONS NOTED TO A PORTEX DCT #7 AIRWAY SECURED WITH A JARVIS TRACH TIE CUFF PRESSURE CHECKED NOTED AMBU BAG AT BEDSIDE STABBLE GOOD CHEST RISE DEEP TRACHEAL SUCTION FOR MODERATE THIN YELLOW SECRETIONS AIRWAY PATENT
[2021-07-10 08:12] LABS: ALBUMIN 1.9 g/dL (3.4-5.0); ANION GAP 11.1 (8-16); CARBON DIOXIDE 27.5 mmol/L (21-32); CREATININE 0.6 mg/dL (0.6-1.3); POTASSIUM 3.6 mmol/L (3.5-5.1); TOTAL BILIRUBIN 0.3 mg/dL (0.0-1.0)
[2021-07-10] MEDS: FERROUS GLUCONATE 324 MG TAB PO SCH ×2 (08:18→17:31)
[2021-07-10] MEDS: MIDODRINE 5 MG TAB PO SCH ×4 (10:00→20:43)
[2021-07-10] MEDS: ATORVASTATIN 20 MG TAB GT SCH (10:00)
[2021-07-10] MEDS: POTASSIUM CHLORIDE 20% 40 MEQ/15 ML UDC GT SCH (10:00)
[2021-07-10] MEDS: VIT-B COMP/VIT-C/FOLIC ACID 1 TAB GT SCH (10:00)
--- NOTE | 2021-07-10 10:45 | NUR ---
WOUND CARE EVALUATION NOTE: SKIN ASSESSMENT DONE WITH PRIMARY RN ON THIS 61 Y/O PT ADMITTED WITH SEPTIC SHOCK 2/2 ASPIRATION PNA. PT. WITH TRACH AND PEG. 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 POC DISCUSSED WITH PRIMARY RN. INTEGUMENTARY: -TRACH ANGEL-STOMA SKIN INTACT DRY AND CLEAN -INTERTRIGO LOWER BREAST FOLDS, ABDOMINAL WALL, LOWER ABDOMINAL FOLDS AND GROINS SKIN RED WITH RASHES. -MOISTURE ASSOCIATED DERMATITIS TO PERINEUM, SKIN RED AND INTACT -MID ABD.GT SITE ANGEL-STOMA, SKIN EROSIONS, RED, MOIST, NO ODOR. RECOMMENDATIONS: -CLEANSE BREAST FOLDS, ABDOMINAL WALL, LOWER ABDOMINAL FOLDS AND GROINS WITH MILD SOAP AND WATER, PAT DRY, DUST THIN LAYER OF NYSTATIN POWDER BID AND PRN IF SOILING -ANGEL-CARE Q2H AND APPLY HYDRAGUARD BID AND PRN IF SOILING -CLEANSE [id number] SKIN WITH NS, PAT DRY, APPLY THIN LAYER OF Z GUARD QD AND PRN IF SOILING -TURN AND REPOSITION PATIENT Q 2H -INSPECT SKIN UNDER AND AROUND MEDICAL DEVICES. -ASSESS AND MONITOR SKIN CONDITION DURING POSITION CHANGE -OFFLOAD BILATERAL HEELS BY PLACING PILLOWS UNDER CALVES AT ALL TIMES, UNLESS OTHERWISE CONTRAINDICATED -APPLY HEEL PROTECTORS -MANAGE FRICTION AND SHEAR BY USING LIFT SHEET TO REPOSITION PATIENT -HOB 30 DEGREE TOLERATE -PLEASE FOLLOW RD RECOMMENDATIONS PLEASE NOTIFIED WOUND CARE NURSE FOR ANY CHANGE OF SKIN CONDITION
--- NOTE | 2021-07-10 11:03 | NUR ---
NO APPARENT DISTRESS NOTED GOOD CHEST RISE DEEP TRACHEAL SUCTION FOR MEDIUM FROTHY YELLOW SECRETIONS AIRWAY PATENT
--- NOTE | 2021-07-10 12:27 | NUR ---
07/10/21 RD FOLLOW UP COMPLETED PLEASE REFER TO NUTRITION ASSESSMENT UNDER CARE ACTIVITY FOR ESTIMATED NUTRITIONAL NEEDS. 1. CONTINUE JEVITY 1.2 @ 50 ML/HR TOLERATED -FWF: 50 ML Q4H OR PER MD -PROVIDES 1440 KCAL AND 67 GM PROTEIN, MEETING ESTIMATED NUTRITIONAL GOALS 2. MONITOR GASTRIC RESIDUALS 3. RD TO FOLLOW-UP 2-3 DAYS, HIGH RISK WHIT PICKENS RD
[2021-07-10] MEDS: HYDRAGUARD CREAM TP SCH (12:58)
[2021-07-10] MEDS: NYSTATIN POW 100 MU/GM 15 GM BTL TP SCH (13:00)
--- NOTE | 2021-07-10 14:18 | NUR ---
NO SOB NOTED GOOD CHEST RISE AIRWAY PATENT
--- NOTE | 2021-07-10 19:25 | NUR ---
Received report from August, AM B2B SALES CONSULTANT.All questions answered. Mentally Challenged, opens eyes but unable to follow commands, contracted extremities, GT feeding= Jevity 1.2 @50ml/hr, Trach to vent w/ settings AC Rate= 14, TV= 400, FiO2=26%, PEEP=+5, MICHELLE PICC= Levophed Drip @2mcg/min + NS @5ml/hr, Accucheck q6h, Jean Baptiste to [place].
--- NOTE | 2021-07-10 19:30 | NUR ---
REPORT GIVEN TO RIVET MACHINE OPERATOR RN, AMI. TITRATED LEVO DOWN TO 2MCG/KG/MIN. MAP 65. DUE TO LOW RATE OF LEVO STARTED NS AT 10ML/HR RUNNER.
--- NOTE | 2021-07-10 21:05 | NUR ---
Due medications given, tolerated well. But will still continue to monitor for any signs & symptoms of adverse reactions. Monitor Vital signs as per order.
[2021-07-11] VITALS (31 sets, daily range): BP systolic 80–157; BP diastolic 26–100
--- NOTE | 2021-07-11 | NUR ---
No pain or discomfort noted at this time. Turn & reposition q2h for comfort & prevention of decubitus. Tolerated well. Continue to monitor Vital sings as ordered.
[2021-07-11] MEDS: NYSTATIN POW 100 MU/GM 15 GM BTL TP SCH ×2 (01:00→13:20)
[2021-07-11] MEDS: HYDRAGUARD CREAM TP SCH ×2 (01:00→13:20)
--- NOTE | 2021-07-11 04:30 | NUR ---
Total care given, pericare done, BM x1, Change gown, linen & chaulks , Tolerated well. Made clean dry & comfortable.
[2021-07-11 05:57] LABS: BASOPHILS % (AUTO) 0.1 % (0.0-2.0); EOSINOPHILS # (AUTO) 0.1 K/uL (0-0.4); EOSINOPHILS % (AUTO) 1.6 % (0.0-4.0); HEMATOCRIT 26.4 % (36-48); HEMOGLOBIN 8.7 g/dL (12.0-16.0); LYMPHOCYTES % (AUTO) 12.3 % (20.5-51.1); MEAN CORPUSCULAR HEMOGLOBIN 34 pg (27-31); MEAN CORPUSCULAR HGB CONC 33 g/dL (33-37); MEAN CORPUSCULAR VOLUME 104.1 fL (80-94); MONOCYTES # (AUTO) 0.7 K/uL (0.8-1.0); MONOCYTES % (AUTO) 9.2 % (1.7-9.3); NEUTROPHILS # (AUTO) 6.1 K/uL (1.8-7.7); NEUTROPHILS % (AUTO) 76.8 % (42.2-75.2); PLATELET COUNT (AUTO) 115 K/uL (140-450); RED BLOOD CELL COUNT(AUTO) 2.54 MIL/uL (4.20-5.40); RED CELL DISTRIBUTION WIDTH 21.4 % (11.6-13.7); WHITE BLOOD COUNT (AUTO) 7.9 K/uL (4.8-10.8)
[2021-07-11 06:37] LABS: ALBUMIN 1.8 g/dL (3.4-5.0); ANION GAP 9.5 (8-16); CARBON DIOXIDE 26.3 mmol/L (21-32); CREATININE 0.7 mg/dL (0.6-1.3); POTASSIUM 3.8 mmol/L (3.5-5.1); TOTAL BILIRUBIN 0.3 mg/dL (0.0-1.0)
[2021-07-11 06:45] LABS: PHOSPHORUS 1.4 mg/dL (2.5-4.9)
--- NOTE | 2021-07-11 06:45 | NUR ---
BM x1 again, change kael, & rachel.
[2021-07-11] MEDS: BLOOD GLUCOSE MONITORING 1 DEV DEV MC SCH ×4 (06:53→23:57)
[2021-07-11] MEDS: LEVOTHYROXINE 0.1 MG TAB GT SCH (06:55)
--- NOTE | 2021-07-11 07:15 | NUR ---
RECEIVED ON A VOCSN VENTILATOR PLUGGED INTO RED OUTLET TOLERATING WELL WITHOUT ADVERSE REACTIONS NOTED TO A PORTEX DCT #7 AIRWAY SECURED WITH A JARVIS TRACH TIE CUFF PRESSURE CHECKED NOTED AMBU BAG AT BEDSIDE LOC AWAKE STABLE GOOD CHEST RISE DEEP TRACHEAL SUCTION FOR MODERATE THIN PALE YELLOW SECRETIONS AIRWAY PATENT
--- NOTE | 2021-07-11 07:20 | NUR ---
Report given to aneesh Rich ADMINISTRATIVE ACCOUNTANT. All questions answered.
--- NOTE | 2021-07-11 07:30 | NUR ---
RECEIVED REPORT FROM WORKERS COMPENSATION CLAIMS EXAMINER. PT AWAKE, OPENS EYES NOT FOLLOWING COMMANDS. SR ON MONITOR. TRACH TO VENT ACVC FIO2 26% TV 400 RATE 15 PEEP 5. MICHELLE PICC INFUSING LEVOPHED DRIP AT 8 MCG/MIN, GT ALREADY IN PLACE, CONNECTED TO TUBE FEEDING. W/SMITH CATHETER TO BSD WITH ADEQUATE AMT OF YELLOW URINE W/SEDIMENTS NOTED. BLE CONTRACTED. SKIN NOT INTACT, REFER TO SKIN ASSESSMENT.
[2021-07-11] MEDS: FERROUS GLUCONATE 324 MG TAB PO SCH ×2 (08:29→17:00)
[2021-07-11] MEDS: VIT-B COMP/VIT-C/FOLIC ACID 1 TAB GT SCH (08:29)
[2021-07-11] MEDS: POTASSIUM CHLORIDE 20% 40 MEQ/15 ML UDC GT SCH (08:29)
[2021-07-11] MEDS: ATORVASTATIN 20 MG TAB GT SCH (08:29)
[2021-07-11] MEDS: MIDODRINE 5 MG TAB PO SCH ×4 (08:29→20:32)
--- NOTE | 2021-07-11 08:45 | NUR ---
DUE MEDS GIVEN. ORAL CARE AND SMITH CARE DONE.
--- NOTE | 2021-07-11 10:48 | NUR ---
STABLE EQUAL CHEST RISE DEEP TRACHEAL SUCTION FOR MODERATE THIN PALE YELLOW SECRETIONS AIRWAY PATENT Addendum: 07/11/21 at 1311 by Davide Arceo RT SATURATION 99% ON FIO2 OF 28% PEEP 5cmH2O TITRATED FIO2 TO 24% ADDIE/ALVAREZ NOTIFIED
--- NOTE | 2021-07-11 11:15 | NUR ---
PT AWKE IN BED, NO APPARENT DISTRESS
--- NOTE | 2021-07-11 13:00 | NUR ---
WOUND CARE DONE ON GT SITE EROSION
--- NOTE | 2021-07-11 16:33 | NUR ---
ANGEL CARE DONE, WITH X1 LOOSE BM, TURNED AND REPOSITIONED
--- NOTE | 2021-07-11 18:00 | NUR ---
ANGEL CARE DONE, WITH X1 LOOSE BM, TURNED AND REPOSITIONED. DUE MEDS GIVEN. BS 111, NO COVERAGE GIVEN
--- NOTE | 2021-07-11 19:20 | NUR ---
Report received from KRISH Rich RN. All questions answered. Changes noted Trach to Vent FiO2= 24%, Levophed drip Down to 2mcg/min, BM X2, loose stools, Jean Baptiste to [place] 1000ml out.
--- NOTE | 2021-07-11 21:00 | NUR ---
Due medications given, tolerated well. Will continue to monitor for any signs & symptoms of adverse reactions.
[2021-07-11] MEDS: NOREPINEPHRINE 16 MG in DEXTROSE 5% 250 ML IV PRN (21:18)
--- NOTE | 2021-07-11 23:55 | NUR ---
BS= 118mg/dl, NO Coverage needed as per Sliding scale coverage ordered.
[2021-07-12] VITALS (25 sets, daily range): BP systolic 84–160; BP diastolic 35–123
[2021-07-12] MEDS: HYDRAGUARD CREAM TP SCH ×2 (01:00→13:43)
[2021-07-12] MEDS: NYSTATIN POW 100 MU/GM 15 GM BTL TP SCH ×2 (01:00→13:23)
--- NOTE | 2021-07-12 05:35 | NUR ---
Total care done, Pericare given, BM x1, Change gown, linen, & Chaulks, Made Clean, dry & comfortable. Applied Z guard & Nystatin powder on Breast folds, Abdominal folds, Elsa area,
[2021-07-12] MEDS: LEVOTHYROXINE 0.1 MG TAB GT SCH (06:01)
--- NOTE | 2021-07-12 06:08 | NUR ---
BS= 88mg/dl, NO Coverage needed per Sliding Protocol Ordered.
[2021-07-12] MEDS: BLOOD GLUCOSE MONITORING 1 DEV DEV MC SCH ×4 (06:09→23:27)
[2021-07-12 06:16] LABS: ANION GAP 11.1 (8-16); CARBON DIOXIDE 24.7 mmol/L (21-32); CREATININE 0.7 mg/dL (0.6-1.3); POTASSIUM 3.8 mmol/L (3.5-5.1)
--- NOTE | 2021-07-12 07:05 | NUR ---
Endorse patient to YENY Morales BUTADIENE CONVERTER UTILITY OPERATOR. All questions answered.
--- NOTE | 2021-07-12 07:05 | NUR ---
RECEIVED BEDSIDE REPORT FROM RELASTER NURSE AMI RN, PT RESTING, NO DISTRESS NOTED, PT AWAKE, APHASIC, UNABLE OT LET NEEDS KNOWN, ON TRACH TO VENT, FIO2 24%, RATE 20, PEEP 5, TV 400. NO SOB NOTED, SATURATING @ 100%. LEFT UPPER ARM PICC PATETN INTACT, INFUSING LEVOPHED @ 2MGC/MIN, INFUSING WELL, PT ON ON BILATERAL MITTEN RESTRAINTS. NO S/S OF INJURY. SMITH CATH IN PLACE DRAINING TO GRAVITY. GT IN PLACE WITH FEEDING, JEVITY 1.2 @ 50ML/HR, WITH H2O FLUSH 50ML Q4H. TOLERATED WELL, NO RESIDUAL NOTED. INITIAL ASSESSMENT DONE, ALL SAFETY PRECAUTION MET, CALL LIGHT WITHIN REACH. WILL CONTINUE TO MONITOR.
[2021-07-12 07:57] LABS: MAGNESIUM 2.1 mg/dL (1.8-2.4); PHOSPHORUS 1.7 mg/dL (2.5-4.9)
--- NOTE | 2021-07-12 08:14 | NUR ---
DUE MEDICATIONS ADMINISTER PT TOLERATED WELL, WILL CONTINUE TO MONITOR.
[2021-07-12] MEDS: VIT-B COMP/VIT-C/FOLIC ACID 1 TAB GT SCH (08:16)
[2021-07-12] MEDS: ATORVASTATIN 20 MG TAB GT SCH (08:16)
[2021-07-12] MEDS: FERROUS GLUCONATE 324 MG TAB PO SCH ×2 (08:17→17:30)
[2021-07-12] MEDS: POTASSIUM CHLORIDE 20% 40 MEQ/15 ML UDC GT SCH (08:17)
[2021-07-12] MEDS: MIDODRINE 5 MG TAB PO SCH ×4 (09:00→20:28)
[2021-07-12] MEDS: LORazepam 2 MG/ML VIAL IVP PRN ×2 (10:12→22:19)
--- NOTE | 2021-07-12 10:12 | NUR ---
PT AGITATED, ATIVAN GIVEN PER DR ORDER, NO DISTRESS NOTED, WILL CONTINUE TO MONITOR.
--- NOTE | 2021-07-12 11:45 | NUR ---
RECEIVED REPORT FROM ALVAREZ ATKINSON. TRANSFER OF CARE AT THIS TIME.
--- NOTE | 2021-07-12 12:56 | NUR ---
DR. ZENG AT PT BEDSIDE FOR GTUBE TO BE REPLACED AT THIS TIME. BEDDING, SHEETS, AND GOWN TO BE CHANGED. PT REPOSITIONED. WILL CONTINUE TO MONITOR.
--- NOTE | 2021-07-12 13:23 | NUR ---
BOARDER HAND AT PT BEDSIDE FOR PLACEMENT.
--- NOTE | 2021-07-12 14:51 | NUR ---
SKIN ASSESSMENT DONE WITH PRIMARY RN, NEW SKIN RASHES DEVELOPED, POSTERIOR TRUNK OF BODY AND UNDER ARMS, GT SITE LEAKAGE CONTINUOUSLY, PER PRIMARY RN PT. ON SIZE 22 AND QUESTION IF BIGGER SIZE OF GT WILL HELP. POC DISCUSSED WITH DR. ZENG, NOTIFIED OF GT SITE LEAKAGE AND SKIN RASHES,TORB. POC DISCUSSED WITH PRIMARY RN. RECOMMENDATION: -APPLY HYDROCORTISONE CR. TO POSTERIOR TRUNK OF BODY AND UNDER ARMS BID.
--- NOTE | 2021-07-12 16:28 | NUR ---
07/12/21 RD FOLLOW UP COMPLETED PLEASE REFER TO NUTRITION ASSESSMENT UNDER CARE ACTIVITY FOR ESTIMATED NUTRITIONAL NEEDS. 1. CONTINUE JEVITY 1.2 @ 50 ML/HR TOLERATED -FWF: 50 ML Q4H OR PER MD -PROVIDES 1440 KCAL AND 67 GM PROTEIN, MEETING ESTIMATED NUTRITIONAL GOALS 2. MONITOR GASTRIC RESIDUALS 3. RD TO FOLLOW-UP 3-5 DAYS, MODERATE RISK WHIT PICKENS RD
--- NOTE | 2021-07-12 19:25 | NUR ---
GAVE REPORT TO ALVAREZ PICKENS. TRANSFER OF CARE AT THIS TIME.
--- NOTE | 2021-07-12 19:28 | NUR ---
[facility] OF [facility].
--- NOTE | 2021-07-12 19:59 | NUR ---
PATIENT IS RESTING IN BED. TRACH TO VENT O2 SATURATIONS IN THE HIGH 90S. PATIENT REMAINS A/Ox 1, UNABLE TO FOLLOW COMMANDS AND RESPONDS TO PAINFUL STIMULI ONLY. SMITH CATHETER PRESENT AND PATENT. PATIENT IS NOT IN ANY PAIN OR DISTRESS AT THIS TIME. WILL CONTINUE TO MONITOR.
[2021-07-12] MEDS: HYDROCORTISONE 2.5% OINT 30 GM TUBE TP SCH (20:28)
--- NOTE | 2021-07-12 20:28 | NUR ---
RESIDUAL AMOUNT: 75. HELD JEVITY 1.2. WILL CONTINUE TO MONITOR.
--- NOTE | 2021-07-12 21:20 | NUR ---
RESIDUAL 0. JEVITY RESUMED.
--- NOTE | 2021-07-12 22:21 | NUR ---
PRN ATIVAN ADMINISTERED DUE TO EXTREME RESTLESSNESS.
--- NOTE | 2021-07-12 23:32 | NUR ---
BLOOD GLUCOSE 100. NO COVERAGE NEEDED.
[2021-07-13] VITALS (12 sets, daily range): BP systolic 72–147; BP diastolic 36–90
[2021-07-13] MEDS: HYDRAGUARD CREAM TP SCH ×2 (00:24→13:24)
[2021-07-13] MEDS: NYSTATIN POW 100 MU/GM 15 GM BTL TP SCH ×2 (00:24→13:24)
--- NOTE | 2021-07-13 02:19 | NUR ---
AM CARE COMPLETED. CHG BATH, ORAL CARE, ANGEL-CARE AND REPOSITIONING. PATIENT TOLERATED WELL.
--- NOTE | 2021-07-13 05:18 | NUR ---
JEVITY FEEDING AND TUBING CHANGED.
[2021-07-13] MEDS: BLOOD GLUCOSE MONITORING 1 DEV DEV MC SCH ×4 (05:44→23:49)
[2021-07-13] MEDS: LEVOTHYROXINE 0.1 MG TAB GT SCH (05:44)
[2021-07-13 05:48] LABS: ANION GAP 12.4 (8-16); CARBON DIOXIDE 25.4 mmol/L (21-32); CREATININE 0.7 mg/dL (0.6-1.3); POTASSIUM 3.8 mmol/L (3.5-5.1)
--- NOTE | 2021-07-13 07:22 | NUR ---
RECEIVED REPORT FROM CELIO WEISS RN. PT AWAKE, OPENS EYES NOT FOLLOWING COMMANDS. SR ON MONITOR. TRACH TO VENT ACVC FIO2 23% PEEP 5. MICHELLE PICC INFUSING NS TKO AT 10 ML/HR, LEVOPHED ON STANDBY, GT ALREADY IN PLACE, CONNECTED TO JEVITY TUBE FEEDING. F/C IN PLACE, DRAINING TO GRAVITY. BLE CONTRACTED. SKIN NOT INTACT, REFER TO SKIN ASSESSMENT. STANDARD PRECAUTIONS IN PLACE. CALL LIGHT WITHIN REACH. INITIAL ASSESSMENT COMPLETE, WILL CONTINUE TO CLOSELY MONITOR.
--- NOTE | 2021-07-13 07:22 | NUR ---
REPORT GIVEN TO ALFIE PINO, FOR CONTINUITY OF CARE.
--- NOTE | 2021-07-13 08:25 | NUR ---
SEEN AND EXAMINED BY DR GARCIA.
--- NOTE | 2021-07-13 08:50 | NUR ---
SEEN AND EXAMINED BY DR HAINES.
[2021-07-13] MEDS: FERROUS GLUCONATE 324 MG TAB PO SCH ×2 (08:52→17:32)
[2021-07-13] MEDS: ATORVASTATIN 20 MG TAB GT SCH (08:52)
[2021-07-13] MEDS: VIT-B COMP/VIT-C/FOLIC ACID 1 TAB GT SCH (08:52)
[2021-07-13] MEDS: POTASSIUM CHLORIDE 20% 40 MEQ/15 ML UDC GT SCH (08:52)
[2021-07-13] MEDS: MIDODRINE 5 MG TAB PO SCH ×4 (08:53→20:18)
[2021-07-13] MEDS: HYDROCORTISONE 2.5% OINT 30 GM TUBE TP SCH ×2 (08:53→20:19)
[2021-07-13] MEDS: LORazepam 2 MG/ML VIAL IVP PRN (09:43)
--- NOTE | 2021-07-13 09:45 | NUR ---
INVOLUNTARY MOVEMENT NOTED TO BUE AND BLE, TRACH CIRCUIT DISCONNECTED TWICE. PT UNABLE TO COMPREHEND VERBAL REORIENTATION. MEDICATED WITH ATIVAN 0.5 MG IVP PER PRN ORDERS. WILL CONTINUE TO CLOSELY MONITOR.
--- NOTE | 2021-07-13 11:15 | NUR ---
PT CLEANED AND REPOSITIONED. WATERY LIGHT BROWN STOOL NOTED. FLEXISEAL RECTAL TUBE INSERTED PER DR HAINES ORDER. PT TOLERATED WELL. WILL CONTINUE TO CLOSELY MONITOR.
--- NOTE | 2021-07-13 12:00 | NUR ---
ACCUCHECK 72. WILL CONTINUE TO CLOSELY MONITOR.
--- NOTE | 2021-07-13 12:10 | NUR ---
SEEN AND EXAMINED BY DR MENDEZ.
--- NOTE | 2021-07-13 18:00 | NUR ---
ACCUCHECK 95. WILL CONTINUE TO CLOSELY MONITOR.
--- NOTE | 2021-07-13 19:25 | NUR ---
ENDORSED BEDSIDE REPORT TO CELIO RN FOR CONTINUITY OF CARE.
--- NOTE | 2021-07-13 19:30 | NUR ---
REPORT RECEIVED FROM ALFIE PINO, FOR CONTINUITY OF CARE. PATIENT IS CURRENTLY RESTING IN BED. INTUBATED VIA TRACHEOSTOMY FIO2 OF 24% AND O2 SATURATION 100%. PATIENT IS NOT ALERT AND NONVERBAL AND OPENS EYES TO STIMULI. FEEDING, JEVITY 1.2, RUNNING AT 50 ML/HR VIA G TUBE. SMITH CATHETER PRESENT AND PATENT WITH CLOUDY URINE AND SEDIMENTS THROUGHOUT LINE AND DRAINAGE BAG. RECTAL TUBE PLACED AND PATENT. PATIENT DOES NOT APPEAR TO BE IN ANY DISTRESS OR PAIN AT THIS TIME. WILL CONTINUE TO MONITOR.
--- NOTE | 2021-07-13 20:19 | NUR ---
RESIDUAL AMOUNT 150. FEEDING HELD.
--- NOTE | 2021-07-13 21:04 | NUR ---
GASTRIC RESIDUAL ASSESSED. RESIDUAL AMOUNT: 125. FEEDING HELD.
--- NOTE | 2021-07-13 22:00 | NUR ---
GASTRIC RESIDUAL ASSESSED. RESIDUAL 100. FEEDING HELD.
--- NOTE | 2021-07-13 23:14 | NUR ---
PM CARE, ANGEL CARE AND ORAL CARE PROVIDED. PATIENT GIVEN CHG BATH. SMITH CATHETER AND RECTAL TUBE ASSESSED AND IRRIGATED. PATIENT REPOSITIONED AND TOLERATED CARE WELL.
--- NOTE | 2021-07-13 23:49 | NUR ---
BLOOD GLUCOSE 93. NO COVERAGE NEEDED.
[2021-07-14] VITALS (11 sets, daily range): BP systolic 79–136; BP diastolic 41–97
[2021-07-14] MEDS: NYSTATIN POW 100 MU/GM 15 GM BTL TP SCH ×2 (00:22→13:23)
[2021-07-14] MEDS: HYDRAGUARD CREAM TP SCH ×2 (00:22→13:23)
[2021-07-14] MEDS: LORazepam 2 MG/ML VIAL IVP PRN ×2 (00:30→10:00)
--- NOTE | 2021-07-14 00:31 | NUR ---
PATIENT RESTLESS. PRN ATIVAN GIVEN.
--- NOTE | 2021-07-14 01:00 | NUR ---
GASTRIC RESIDUAL 50. TUBE FEEDING RESUMED AT 30 ML/HR
[2021-07-14 05:43] LABS: ANION GAP 11.6 (8-16); CARBON DIOXIDE 25.4 mmol/L (21-32); CREATININE 0.9 mg/dL (0.6-1.3)
[2021-07-14] MEDS: LEVOTHYROXINE 0.1 MG TAB GT SCH (05:53)
[2021-07-14] MEDS: BLOOD GLUCOSE MONITORING 1 DEV DEV MC SCH ×3 (05:53→17:30)
--- NOTE | 2021-07-14 06:00 | NUR ---
GASTRIC RESIDUAL ASSESSED. RESIDUAL AMOUNT 100. BROWN CLOT-LIKE MATERIAL FOUND IN RESIDUAL. TUBE FEEDING HELD.
[2021-07-14 06:01] LABS: MAGNESIUM 2.4 mg/dL (1.8-2.4); PHOSPHORUS 2.9 mg/dL (2.5-4.9)
--- NOTE | 2021-07-14 07:25 | NUR ---
RECEIVED REPORT FROM CELIO WEISS RN. PT AWAKE, OPENS EYES NOT FOLLOWING COMMANDS. SR ON MONITOR. TRACH TO VENT ACVC FIO2 22% PEEP 5. MICHELLE PICC INFUSING NS TKO AT 10 ML/HR, LEVOPHED ON STANDBY, GT ALREADY IN PLACE, CONNECTED TO JEVITY TUBE FEEDING, HELD FOR HIGH RESIDUALS PER NIGHT NURSE. F/C IN PLACE, DRAINING TO GRAVITY. BLE CONTRACTED. SKIN NOT INTACT, REFER TO SKIN ASSESSMENT. STANDARD PRECAUTIONS IN PLACE. CALL LIGHT WITHIN REACH. INITIAL ASSESSMENT COMPLETE, WILL CONTINUE TO CLOSELY MONITOR.
--- NOTE | 2021-07-14 07:27 | NUR ---
REPORT GIVEN TO ALFIE PINO, FOR CONTINUITY OF CARE.
--- NOTE | 2021-07-14 08:30 | NUR ---
SEEN AND EXAMINED BY DR HAINES.
[2021-07-14] MEDS: FERROUS GLUCONATE 324 MG TAB PO SCH ×2 (08:58→17:24)
[2021-07-14] MEDS: VIT-B COMP/VIT-C/FOLIC ACID 1 TAB GT SCH (08:58)
[2021-07-14] MEDS: POTASSIUM CHLORIDE 20% 40 MEQ/15 ML UDC GT SCH (08:58)
[2021-07-14] MEDS: ATORVASTATIN 20 MG TAB GT SCH (08:58)
[2021-07-14] MEDS: MIDODRINE 5 MG TAB PO SCH ×4 (08:58→21:00)
[2021-07-14] MEDS: HYDROCORTISONE 2.5% OINT 30 GM TUBE TP SCH ×2 (08:59→21:00)
--- NOTE | 2021-07-14 11:55 | NUR ---
SEEN AND EXAMINED BY DR GARCIA. ORDERS RECEIVED.
--- NOTE | 2021-07-14 12:10 | NUR ---
SEEN AND EXAMINED BY DR MENDEZ.
--- NOTE | 2021-07-14 14:30 | NUR ---
CLEANED AND REPOSITIONED. TOLERATED WELL. WILL CONTINUE TO MONITOR.
[2021-07-14] MEDS: METOCLOPRAMIDE 10 MG/2 ML INJ VIAL IVP SCH (17:24)
--- NOTE | 2021-07-14 17:25 | NUR ---
SEEN AND EXAMINED BY DR SHIN.
--- NOTE | 2021-07-14 19:15 | NUR ---
ENDORSED BEDSIDE REPORT TO MARCELA PINO FOR CONTINUITY OF CARE.
--- NOTE | 2021-07-14 20:27 | NUR ---
PT TRANSPORTED FROM ICU1 TO 127 W/ NO ADVERSE EVENTS PT TOLERATED TRANSPORT WELL VENT PLUGGED INTO RED OUTLET W/ ALARMS ON AND AUDIBLE PT HAS PATENT/SECURED PORTEX 7 TRACH PT CURRENTLY ON 2L BLEED W/ NO CHANGES TO VENT PT WAS CONNECTED TO VITAL MACHINE AT BEDSIDE Sx WAS SET UP AMBU PLACED AT BEDSIDE WILL CONTINUE TO MONITOR
[2021-07-15] VITALS: BP 105/58
[2021-07-15] MEDS: HYDRAGUARD CREAM TP SCH ×2 (01:00→12:47)
--- NOTE | 2021-07-15 01:08 | NUR ---
PATIENT TO ROOM 2019 AWAKE NON VERBAL. HAS TRACH TO VENT FI02 23%. SAT 99%. LUNGS DIMINISH. HAS MONITOR SINUS DALTON HEART RATE 57 AWARE. TEMP 98. HAS G-TUBE HAS A BAD IRRITATION AROUND SITE OF G-TUBE.AND I WAS TOLD WHEN FEEDING IS INFUSING IT LEAKS FROM SITE WEAR G-TUBE IS INSERTED. NO FEEDING GOING ALL DAY IN ICU. WHEN PATIENT CAME TO ME ICU NURSE MARCELA SAID NO FEEDING WAS INFUSING IN ICU AND TO LET THE IN A.M BE AWARE OF LEAKING AROUND GT-TUBE. PATIENT HAS A RIGHT UPPER PICC LINE. PATIENT HAS A F/C DRAINING ANGIE URINE AND HAS A RECTAL TUBE TO DRAINAGE DRAINING GREEN STOOL. MID NITE BLOOD SUGAR 84. WILL CHECK AGAIN IN A.M.
[2021-07-15 04:00] VITALS: BP 102/56
[2021-07-15] MEDS: BLOOD GLUCOSE MONITORING 1 DEV DEV MC SCH ×3 (06:00→11:26)
[2021-07-15] MEDS: METOCLOPRAMIDE 10 MG/2 ML INJ VIAL IVP SCH ×3 (06:00→12:46)
[2021-07-15] MEDS: LEVOTHYROXINE 0.1 MG TAB GT SCH (06:25)
[2021-07-15 06:48] LABS: BASOPHILS % (AUTO) 0.7 % (0.0-2.0); EOSINOPHILS # (AUTO) 0.1 K/uL (0-0.4); EOSINOPHILS % (AUTO) 1.6 % (0.0-4.0); HEMATOCRIT 29.1 % (36-48); HEMOGLOBIN 9.6 g/dL (12.0-16.0); LYMPHOCYTES # (AUTO) 1.3 K/uL (2.5-16.5); LYMPHOCYTES % (AUTO) 23.5 % (20.5-51.1); MEAN CORPUSCULAR HEMOGLOBIN 34 pg (27-31); MEAN CORPUSCULAR HGB CONC 33 g/dL (33-37); MEAN CORPUSCULAR VOLUME 102.9 fL (80-94); MONOCYTES # (AUTO) 0.9 K/uL (0.8-1.0); MONOCYTES % (AUTO) 15.5 % (1.7-9.3); NEUTROPHILS # (AUTO) 3.3 K/uL (1.8-7.7); NEUTROPHILS % (AUTO) 58.7 % (42.2-75.2); PLATELET COUNT (AUTO) 186 K/uL (140-450); RED BLOOD CELL COUNT(AUTO) 2.83 MIL/uL (4.20-5.40); RED CELL DISTRIBUTION WIDTH 20.2 % (11.6-13.7); WHITE BLOOD COUNT (AUTO) 5.6 K/uL (4.8-10.8)
[2021-07-15 07:15] LABS: ANION GAP 13.8 (8-16); CARBON DIOXIDE 23.3 mmol/L (21-32); CREATININE 0.9 mg/dL (0.6-1.3); POTASSIUM 4.1 mmol/L (3.5-5.1)
--- NOTE | 2021-07-15 07:30 | NUR ---
REPORT RECEIVED FROM GENERAL LABOR FORKLIFT OPERATOR RN,NONVERBAL, IV MAINTAINED, GTUBE NOT CURRENTLY LEAKING, SLEEPING IN BED, SAFETY MEASURES MAINTAINED, CALL LIGHT WITHIN REACH, WILL CONTINUE TO MONITOR
[2021-07-15 08:00] VITALS: BP 104/55
--- NOTE | 2021-07-15 08:18 | NUR ---
RECEIVED ON A VOCSN VENTILATOR PLUGGED INTO RED OUTLET TOLERATING WELL WITHOUT ADVERSE REACTIONS NOTED TO A PORTEX DFEN #7 AIRWAY SECURED WITH A JARVIS TRACH TIE CUFF PRESSURE CHECKED NOTED AMBU BAG AT BEDSIDE GOOD CHEST RISE DEEP TRACHEAL SUCTION FOR LARGE THICK YELLOW/GREEN SECRETIONS AIRWAY PATENT
[2021-07-15] MEDS: FERROUS GLUCONATE 324 MG TAB PO SCH ×2 (08:52→17:17)
[2021-07-15] MEDS: POTASSIUM CHLORIDE 20% 40 MEQ/15 ML UDC GT SCH (08:52)
[2021-07-15] MEDS: MIDODRINE 5 MG TAB PO SCH ×3 (08:52→17:17)
[2021-07-15] MEDS: VIT-B COMP/VIT-C/FOLIC ACID 1 TAB GT SCH (08:52)
[2021-07-15] MEDS: HYDROCORTISONE 2.5% OINT 30 GM TUBE TP SCH (08:53)
[2021-07-15] MEDS: ATORVASTATIN 20 MG TAB GT SCH (09:04)
--- NOTE | 2021-07-15 10:43 | NUR ---
NO DISTRESS NOTED EQUAL CHEST RISE AIRWAY PATENT
[2021-07-15 12:00] VITALS: BP 120/55
[2021-07-15] MEDS ORDERED: MIDO5TAB16 PO (13:41)
--- NOTE | 2021-07-15 14:00 | NUR ---
PATIENT RESTRAINTS REMOVED, CALM, NO LONGER MEETS NEEDS, WILL CONTINUE TO MONITOR Addendum: 07/15/21 at 1405 by Agency Nurse ALVAREZ Landry RN Amended: Links added.
[2021-07-15 16:00] VITALS: BP 103/49
--- NOTE | 2021-07-15 16:51 | NUR ---
REPORT GIVEN TO MYRON RN AT [facility], PT NONVERBAL, CARED FOR PER PROTOCOL, REPOSITIONED Q2, TOLERATING MEDICATIONS AND FEEDINGS, NO ACTIVE LEAKING, VENT AT 23% FIO2 >90%, PICC LINE DRESSING DRY AND INTACT, SKIN DRY AND INTACT, NO ACUTE DISTRESS, PT STABLE FOR DISCHARGE, WILL CONTINUE TO MONITOR
--- NOTE | 2021-07-15 16:59 | NUR ---
STABLE EQUAL CHEST RISE DEEP TRACHEAL SUCTION FOR LARGE THIN PALE YELLOW SECRETIONS AIRWAY PATENT
--- NOTE | 2021-07-15 17:28 | NUR ---
[facility] AT BEDSIDE FOR PATIENT TRANSPORT PORTEX DCT #7 TRACH KIT GIVEN TO Eunice NI RT
--- NOTE | 2021-07-15 17:42 | NUR ---
REPORT GIVEN TO [facility], PT STABLE, DRESSING CHANGES COMPLETED, VSS, NO ACUTE DISTRESS, CLEAR FOR DC TO [facility]
== END 2021-07-15 17:34 | DRG 870 ==
LOC: MED 15:36 → MTU 21:23 → MIC 06-27 13:23 → MMU 07-14 20:20
PROC: 5A1955Z Respiratory Ventilation, Greater than 96 Consecutive Hours (ICD-10-PCS; principal; 2021-06-17)
PROC: 0D9670Z Drainage of Stomach with Drainage Device, Via Natural or Artificial Opening (ICD-10-PCS; 2021-06-17)
PROC: B54BZZA Ultrasonography of Right Lower Extremity Veins, Guidance (ICD-10-PCS; 2021-06-17)
PROC: 06HM33Z Insertion of Infusion Device into Right Femoral Vein, Percutaneous Approach (ICD-10-PCS; 2021-06-27)
DX: A41.9 Sepsis, unspecified organism (principal); R65.21 Severe sepsis with septic shock; J69.0 Pneumonitis due to inhalation of food and vomit; E43 Unspecified severe protein-calorie malnutrition; J15.6 Pneumonia due to other Gram-negative bacteria; J96.20 Acute and chronic respiratory failure, unspecified whether with hypoxia or hypercapnia; I21.4 Non-ST elevation (NSTEMI) myocardial infarction; L03.311 Cellulitis of abdominal wall; R18.8 Other ascites; K94.23 Gastrostomy malfunction; I10 Essential (primary) hypertension; E78.5 Hyperlipidemia, unspecified; E03.9 Hypothyroidism, unspecified; I25.10 Atherosclerotic heart disease of native coronary artery without angina pectoris; Y95 Nosocomial condition; R13.10 Dysphagia, unspecified; E86.0 Dehydration; F79 Unspecified intellectual disabilities; N20.0 Calculus of kidney; R00.1 Bradycardia, unspecified; N30.90 Cystitis, unspecified without hematuria; D69.6 Thrombocytopenia, unspecified; Z20.822 Contact with and (suspected) exposure to COVID-19; D53.9 Nutritional anemia, unspecified; Y83.8 Other surgical procedures as the cause of abnormal reaction of the patient, or of later complication, without mention of misadventure at the time of the procedure; Y82.8 Other medical devices associated with adverse incidents; E87.6 Hypokalemia; Z68.31 Body mass index [BMI] 31.0-31.9, adult; Y92.89 Other specified places as the place of occurrence of the external cause
CPT/HCPCS: 36415; 36556; 36600; 71045; 74018; 80048; 80053; 80202; 80305; 81001; 82040; 82533; 82607; 82746; 82803; 82947; 82948; 83036; 83605; 83735; 83880; 84100; 84134; 84443; 84484; 85025; 85045; 85610; 85730; 86886; 86900; 86901; 86920; 87040; 87070; 87086; 87205; 93005; 94003; 96365; 96375; 99291; C9113; J0692; J1265; J1644; J1720; J1815; J1956; J2060; J2270; J2543; J2765; J2916; J3370; J3475; J3480; J3490; J7030; J7060; Q0092